=== PATIENT | male | born 1975 | race Caucasian/White ===

== ENCOUNTER 2023-05-06 10:28 | Outpatient (REF) | payer OTHER, SELFPAY ==
[2023-05-06 12:03] LABS: C Reactive Protein 0.28 mg/dL (< or = 0.50); Rheumatoid Factor < 13.0 IU/mL (<15.0)
[2023-05-06 12:09] LABS: Erythrocyte Sedimentation Rate 6 MM/HR (0-15)
[2023-05-14 13:09] LABS: ANA Titer 2 1:40 titer; Anti Nuclear Antibody Screen POSITIVE (NEGATIVE)
== END 2023-05-06 10:29 | disposition home or self-care (01) ==
LOC: HO.HHCL 10:28
PROVIDERS: Visit Provider Internal Medicine
DX: Z91.09 Other allergy status, other than to drugs and biological substances (principal)
CPT/HCPCS: 36415; 85652; 86038; 86039; 86140; 86431

== ENCOUNTER → 2024-03-26 10:45 | Outpatient (BNVA) | payer SELFPAY | PROVIDERS: PCP Internal Medicine; Visit Provider Physician Assistant | DX: Z02.79 Encounter for issue of other medical certificate (principal) ==

== ENCOUNTER 2024-07-02 08:54 | Outpatient (REF) | payer OTHER, SELFPAY ==
[2024-07-02 14:13] LABS: MANUAL DIFF FLAG NO
[2024-07-02 14:24] LABS: Appearance Urine Clear; Color Urine Yellow; Glucose Urine UA Negative (Negative); Leukocyte Esterase Urine Negative (Negative); Nitrite Urine Negative (Negative); PH 7.5 (5.0-9.0); Urine Blood Negative (Negative); Urine Ketones Negative (Negative); Urine Protein Negative (Neg-Trace)
[2024-07-02 14:27] LABS: Basophils Absolute Auto 0.1 X10*3/uL (0.0-0.2); Basophils Percent Auto 0.6 % (0-2); Eosinophils Absolute Auto 0.2 X10*3/uL (0.0-0.4); Eosinophils Percent Auto 2.2 % (0-4); Hematocrit 44.5 % (42.0-52.0); Hemoglobin 14.2 g/dl (14.0-18.0); Imm Gran Abs Auto 0.19 X10*3/uL (0.00-0.03); Imm Gran Pct Auto 1.9 % (0.0-0.4); Lymphocytes Absolute Auto 2.6 X10*3/uL (1.2-4.9); Lymphocytes Percent Auto 25.5 % (20-40); Mean Corpuscular HGB Conc 31.9 g/dl (31.0-36.0); Mean Corpuscular Hemoglobin 25.2 pg (27.0-33.0); Mean Corpuscular Volume 78.9 fL (80.0-98.0); Mean Platelet Volume 9.6 fL (9.4-12.4); Monocytes Absolute Auto 0.7 X10*3/uL (0.1-1.2); Neutrophils Absolute Auto 6.3 x10*3/uL (2.0-8.3); Neutrophils Percent Auto 62.8 % (45-73); Platelet Count 325 X10*3/uL (160-400); Red Blood Count 5.64 X10*6/uL (4.60-5.80); Red Cell Distribution Width 14.6 % (11.0-16.0); White Blood Count 10.1 X10*3/uL (4.8-10.8)
[2024-07-02 14:28] LABS: Bacteria Urine None Seen (None Seen); Hyaline Casts Urine 0-2 /LPF (0-2); RBC Urine 0-2 /HPF (0-2); Squamous Epithelial Cell Urine 0-2 /HPF (0-2); WBC Urine 0-5 /HPF (0-5)
[2024-07-02 15:22] LABS: Alanine Aminotransferase 22 U/L (0-40); Alkaline Phosphatase 72 U/L (39-117); Anion Gap 12 (12-20); Aspartate Amino Transferase 20 U/L (5-37); Bilirubin Total 0.4 mg/dL (0.0-1.0); Blood Urea Nitrogen 16 mg/dL (9-16); Calcium 9.6 mg/dL (8.4-10.2); Carbon Dioxide 29 mmol/L (22-29); Chloride 104 mmol/L (96-108); Cholesterol 187 mg/dL (<200); Estimated Glomerular Filt Rate > 60; Glucose Random 85 mg/dL (60-115); HDL Cholesterol 43 mg/dL (>40); LDL Cholesterol Calculated 112 mg/dL (<100); Potassium 3.5 mmol/L (3.3-5.1); Sodium 141 mmol/L (135-145); Total Protein 7.9 g/dL (6.5-8.0); Triglycerides 160 mg/dL (<150)
[2024-07-02 15:28] LABS: TSH reflex Free T4 1.31 uIU/mL (0.32-4.0)
== END 2024-07-02 08:55 | disposition home or self-care (01) ==
LOC: HO.CHCLDS 08:54
PROVIDERS: Visit Provider Family Medicine
DX: E66.01 Morbid (severe) obesity due to excess calories (principal); Z68.42 Body mass index [BMI] 45.0-49.9, adult
CPT/HCPCS: 36415; 80053; 80061; 81001; 84443; 85025; 87086

== ENCOUNTER 2024-10-08 09:19 | Outpatient (REF) | payer OTHER, SELFPAY ==
[2024-10-08 14:07] LABS: Appearance Urine Clear; Color Urine Yellow; Glucose Urine UA Negative (Negative); Leukocyte Esterase Urine Trace (Negative); Nitrite Urine Negative (Negative); PH 6.5 (5.0-9.0); UMIC TRIGGER UACC YES; Urine Blood Negative (Negative); Urine Ketones Negative (Negative); Urine Protein Negative (Neg-Trace)
[2024-10-08 14:12] LABS: Bacteria Urine None Seen (None Seen); Hyaline Casts Urine 0-2 /LPF (0-2); RBC Urine 0-2 /HPF (0-2); Squamous Epithelial Cell Urine 0-2 /HPF (0-2); WBC Urine 0-5 /HPF (0-5)
[2024-10-08 14:18] LABS: MANUAL DIFF FLAG NO
[2024-10-08 14:20] LABS: Basophils Absolute Auto 0.1 X10*3/uL (0.0-0.2); Basophils Percent Auto 0.6 % (0-2); Eosinophils Absolute Auto 0.2 X10*3/uL (0.0-0.4); Eosinophils Percent Auto 2.3 % (0-4); Hematocrit 43.3 % (42.0-52.0); Hemoglobin 13.9 g/dl (14.0-18.0); Imm Gran Abs Auto 0.15 X10*3/uL (0.00-0.03); Imm Gran Pct Auto 1.5 % (0.0-0.4); Lymphocytes Absolute Auto 2.3 X10*3/uL (1.2-4.9); Lymphocytes Percent Auto 23.8 % (20-40); Mean Corpuscular HGB Conc 32.1 g/dl (31.0-36.0); Mean Platelet Volume 9.7 fL (9.4-12.4); Monocytes Absolute Auto 0.6 X10*3/uL (0.1-1.2); Monocytes Percent Auto 6.3 % (2-11); Neutrophils Absolute Auto 6.4 x10*3/uL (2.0-8.3); Neutrophils Percent Auto 65.5 % (45-73); Platelet Count 316 X10*3/uL (160-400); Red Blood Count 5.55 X10*6/uL (4.60-5.80); Red Cell Distribution Width 14.2 % (11.0-16.0); White Blood Count 9.7 X10*3/uL (4.8-10.8)
[2024-10-08 14:40] LABS: Albumin Level 4.1 g/dL (3.5-5.0); Anion Gap 13 (12-20); Aspartate Amino Transferase 35 U/L (5-37); Beta-Hydroxybutyrate 0.08 mmol/L (0.02-0.27); Bilirubin Total 0.4 mg/dL (0.0-1.0); Blood Urea Nitrogen 17 mg/dL (9-16); Calcium 9.5 mg/dL (8.4-10.2); Carbon Dioxide 27 mmol/L (22-29); Chloride 103 mmol/L (96-108); Estimated Glomerular Filt Rate > 60; Glucose Random 103 mg/dL (60-115); Potassium 3.5 mmol/L (3.3-5.1); Sodium 139 mmol/L (135-145); Total Protein 7.8 g/dL (6.5-8.0)
[2024-10-08 15:01] LABS: Alanine Aminotransferase 34 U/L (0-40); Alkaline Phosphatase 80 U/L (39-117)
[2024-10-08 15:03] LABS: Insulin 39 uU/mL (2-29)
[2024-10-09 21:39] LABS: C Peptide 5.44 ng/mL (0.80-3.85)
[2024-10-16 01:53] LABS: Proinsulin 48.3 pmol/L (< OR = 18.8)
== END 2024-10-08 09:20 | disposition home or self-care (01) ==
LOC: HO.CHCLDS 09:19
PROVIDERS: Visit Provider Family Medicine
DX: R73.09 Other abnormal glucose (principal); R30.0 Dysuria
CPT/HCPCS: 36415; 80053; 81001; 82010; 83525; 84206; 84681; 85025

== ENCOUNTER 2025-05-12 11:39 | Outpatient (REF) | payer OTHER, SELFPAY ==
--- NOTE | ~2025-05-12 | XR_ITS ---
EXAMINATION: XR SHOULDER, RIGHT CLINICAL INFORMATION: 49 yo Male with chronic R shoulder pain COMPARISON: None available. TECHNIQUE: AP external rotation, Grashey, scapular Y, and axillary views of the right shoulder. FINDINGS: AC joint is intact. There is no shoulder dislocation. There are no degenerative changes. No fractures are visualized. XR/XR shoulder RT min 2V IMPRESSION: Unremarkable right shoulder. Electronically signed by: Holden Ochoa MD 05/12/2025 12:25 PM EDT
--- OUTSIDE RECORDS SUMMARY | 2025-05-12 10:45 | XMS_ITS | Encounter Summary ---
Author Organization [employer] [facility] Address [address] [place] [address] [address], [place] [address] Care Team Providers Care Absorption Plant Operator Name Role Phone Verna Sharpe MD Primary Care Provider [phone] Reason for Referral * Consultation (Routine) - Pending Review Specialty Diagnoses / Procedures Referred By Contac t Referred To Contact Gastroenterology Diagnoses Bloating Constipation, unspecified constipation type Verna Sharpe MD [address] [place] [address] Phone: tel: fax: Referral ID Status Reason Start Date Expiration Date Visits Requested Visits Authorized [id number] Pending Review Specialty Services Required 05/12/2025 05/12/2026 1 1 * Consultation (Routine) - Pending Review Specialty Diagnoses / Procedures Referred By Contac t Referred To Contact Pain Medicine Diagnoses Lumbar radiculopathy Verna Sharpe MD [address] [place] [address] Phone: tel: fax: Referral ID Status Reason Start Date Expiration Date Visits Requested Visits Authorized [id number] Pending Review Specialty Services Required 05/12/2025 05/12/2026 1 1 Reason for Visit * Reason Comments Bloated Encounter Details Date Type Department Care Team (Latest Contact Info) Description 05/12/2025 10:45 AM EDT Office Visit [facility] MED [facility] PEDS [address] [place] [address] Verna Sharpe MD [address] [place] [address] Lumbar radiculopathy (Primary Dx); Type 2 diabetes mellitus without complication, without long-term current use of insulin ([facility]); Class 3 severe obesity due to excess calories with serious comorbidity and body mass index (BMI) of 45.0 to 49.9 in adult; Obstructive sleep apnea syndrome; Bloating; Constipation, unspecified constipation type; Chronic right shoulder pain Social History Tobacco Use Types Packs/Day Years Used Date Smoking Tobacco: Never Passive Smoke Exposure: Never Smokeless Tobacco: Never Alcohol Use Standard Drinks/Week Comments Never 0 (1 standard drink = 0.6 oz pur e alcohol) Depression Answer Date Recorded Patient Health Questionnaire-9 Score 7 10/07/2024 Patient Health Questionnaire-9 Score 7 10/07/2024 Last PHQ-9: Questionnaire Data Not on file 1 12/08/2023 Housing Stability Answer Date Recorded What is your housing situation today? I have peter jones 04/15/[address] you li ve. Do you have problems with any of the following? None of the above 04/15/2025 Food Insecurity Answer Date Recorded Within the past 12 months, y ou worried that your food would run out before you got money to buy more: Never True 04/15/2025 Within the past 12 months,th e food you bought just didn't last and you didn't have enough money to get more: Never True Transportation Answer Date Recorded In the past 12 months, has l ack of transportation kept you from medical appts, meetings, work or from getting things needed for daily living? No 04/15/2025 Utilities Answer Date Recorded In the past 12 months, has t he electric, gas, oil or water company threatened to shut off services in your home? No 04/15/2025 Depression Answer Date Recorded Patient Health Questionnaire-2 Score 2 10/07/2024 Internet Access Answer Date Recorded Internet Access Q1 Yes 04/15/2025 Internet Access Q2 Not on file 04/15/2025 Sex and Gender Information Value Date Recorded Sex Assigned at Male 08/26/2022 10:35 AM EDT Legal Sex Male 10:35 AM EDT Gender Identity Male 08/26/2022 10:35 AM EDT Sexual Orientation Straight 08/26/2022 10 :35 AM EDT documented as of this encounter Last Filed Vital Signs Vital Sign Reading Time Taken Comments Blood Pressure 148/98 05/12/2025 10:46 AM EDT Pulse 86 05/12/2025 10:46 AM EDT Temperature 36.9 C (98.4 F) 05/12/2025 10:46 AM EDT Respiratory Rate 20 05/12/2025 10:46 AM EDT Oxygen Saturation 98% 05/12/2025 10:46 AM EDT Inhaled Oxygen Concentration - - Weight 152 kg (334 lb 9.6 oz) 05/12/2025 10:46 A M EDT Height 177.8 cm (5' 10 ) 05/12/2025 10:46 AM EDT Body Mass Index 48.01 05/12/2025 10:46 AM EDT documented in this encounter Plan of Treatment Upcoming Encounters Date Type Department Care Team (Late st Contact Info) Description 05/27/2025 9:45 AM EDT Office Visit [facility] OPTOMETRY [address] [place] [address] Brandy Blair, OD [address] [place] [address] 07/13/2025 9:00 AM EDT Clinical Support [facility] [address] [place] [address] Lucille Rutledge, RN [address] [place] [address] Scheduled Referrals Name Type Priority Associated Diagnoses Orde r Schedule Referral to Pain Medicine Outpatient Referral Routine Lumbar radiculopathy Expected: 05/12/2025 (Approximate), Expires: 05/12/2026 Referral to Gastroenterology Outpatient Referral Routine Bloating Constipation, unspecified constipation type Expected: 05/12/2025 (Approximate), Expires: 05/12/2026 documented as of this encounter Procedures Procedure Name Priority Date/Time Associated Diagnosis Comments XR SHOULDER 2+ VIEWS RIGHT Routine 05/12/2025 11:55 AM EDT Chronic right shoulder pain documented in this encounter Results * XR Shoulder 2+ Views Right (05/12/2025 11:55 AM EDT) Anatomical Region Laterality Modality Upper Extremities, Shoulder Right Radi ographic Imaging 05/12/2025 11:5 5 AM EDT Narrative 05/12/2025 12:28 PM EDT [address] [address] XRay Report Signed Patient: Randall Becerra MR#: [id number] : 1975 Acct:[id number] Age/Sex: 49 / M ADM Date: 05/12/25 Loc: HO.XRAY Attending Dr: Verna Sharpe MD Ordering Physician: Verna Sharpe MD Date of Service: 05/12/25 Procedure(s): XR shoulder RT min 2V Accession Number(s): [id number] cc: Verna Sharpe MD EXAMINATION: XR SHOULDER, RIGHT CLINICAL INFORMATION: 49 yo Male with chronic R shoulder pain COMPARISON: None available. TECHNIQUE: AP external rotation, Grashey, scapular Y, and axillary views of the right shoulder. FINDINGS: AC joint is intact. There is no shoulder dislocation. There are no degenerative changes. No fractures are visualized. XR/XR shoulder RT min 2V IMPRESSION: Unremarkable right shoulder. Electronically signed by: Holden Ochoa MD 05/12/2025 12:25 PM EDT Dictated By: Holden Ochoa MD Signed By: <Electronically signed by Holden Ochoa MD in OV> 05/12/25 1225 DD/ 1155 TD/TT: 05/12/[address] Passenger Firer: Procedure Note Donotuseinterpreter, Image - 05/12/[address] [address] XRay Report Signed Patient: Kb BecerraR#: [id number] : 1975Acct:[id number] Age/Sex: 49 / MADM Date: 05/12/25 Loc: HO.XRAY Attending Dr: Verna Sharpe MD Ordering Physician: Verna Sharpe MD Date of Service: 05/12/25 Procedure(s): XR shoulder RT min 2V Accession Number(s): [id number] cc: Verna Sharpe MD EXAMINATION: XR SHOULDER, RIGHT CLINICAL INFORMATION: 49 yo Male with chronic R shoulder pain COMPARISON: None available. TECHNIQUE: AP external rotation, Grashey, scapular Y, and axillary views of the right shoulder. FINDINGS: AC joint is intact. There is no shoulder dislocation. There are no degenerative changes. No fractures are visualized. XR/XR shoulder RT min 2V IMPRESSION: Unremarkable right shoulder. Electronically signed by: Holden Ochoa MD 05/12/2025 12:25 PM EDT Dictated By: Holden Ochoa MD Signed By: <Electronically signed by Holden Ochoa MD in OV> 05/12/25 1225 DD/ 1155 TD/TT: 05/12/[address] Passenger Firer: Verna Sharpe MD IMG XR PROCEDURES Edited Resu lt - Final documented in this encounter Visit Diagnoses Diagnosis Lumbar radiculopathy- Primary Thoracic or lumbosacral neuritis or radiculitis, unspecified Type 2 diabetes mellitus without complication, without long-term current use of insulin ([facility]) Class 3 severe obesity due to excess calories with serious comorbidity and body mass index (BMI) of 45.0 to 49.9 in adult Obstructive sleep apnea syndrome Obstructive sleep apnea (adult) (pediatric) Bloating Flatulence, eructation, and gas pain Constipation, unspecified constipation type Chronic right shoulder pain Pain in joint, shoulder region documented in this encounter Additional Health Concerns Assessment Noted Time PHQ-9 Depression Total Score: 7 10/07/20 24 1:49 PM EST documented as of this encounter Care Teams Absorption Plant Operator Relationship Specialty Start Date End Date Verna Sharpe MD [address] [place] [id number] PCP - General Family Medicine 11/05/21 documented as of this encounter
--- OUTSIDE RECORDS SUMMARY | 2025-05-12 12:31 | XMS_ITS | Clinical Summary ---
Author Organization [address] [place] [address] Address [address] [place] [address] Phone Care Team Providers Care Car Repairman Name Role Phone Verna Sharpe MD Primary Care Provider [phone] Allergies No known active allergies Medications fluticasone propionate (FLONASE) 50 mcg/actuation nasal spray 2 Sprays by Each Nare route daily. Active fluticasone furoate-vilante roL (BREO ELLIPTA) 100-25 mcg/dose inhaler Inhale into the lungs. Active simvastatin (ZOCOR) 20 mg tablet Take 20 mg by mouth at bedtime. Active BISACODYL MISC by Combination route. Active GABAPENTIN ORAL Take by mouth. Active RANITIDINE HCL ORAL Take 300 mg by mouth at bedtime. Active cyclobenzaprine HCl (CYCLOBENZAPRIN E ORAL) Take by mouth. Activ e CHLORTHALIDONE ORAL Take by mouth. Activ e IBUPROFEN ORAL Take by mouth. Active ENALAPRIL MALEATE ORAL Take by mouth. Ac tive ketoconazole (NIZORAL) 2 % cream Apply topically 1 (one) time each day. 60 g 2 5 Active Active Problems Problem Noted Date Diagnosed Date Class 3 severe obesity due t o excess calories with serious comorbidity and body mass index (BMI) of 45.0 to 49.9 in adult ([facility] V24, [facility] V28) Surgical History Surgery Date Site/Laterality Comments HAND SURGERY PROCEDURE: CA UNLISTED PROCEDURE HANDS/FINGERS Medical History Medical History Date Comments Hypertension DX:Hypertension Obesity DX:Obesity Obstructive sleep apnea DX:Obstr uctive sleep apnea Diabetes (CMS/H[facility] V24, [facility] V28) DX:Diabetes (HCC) Back pain DX:Back pain Asthma DX:Asthma Family History Medical History Relation Name Comments Diabetes Father Other: cancer Father Diabetes Mother Hypertension Mother Relation Name Status Comments Father Mother Social History Tobacco Use Types Packs/Day Years Used Date Smoking Tobacco: Never Smokeless Tobacco: Never Alcohol Use Standard Drinks/Week Comments No 0 (1 standard drink = 0.6 oz pur e alcohol) Sex and Gender Information Value Date Recorded Sex Assigned at Not on file Legal Sex Male 3:31 PM EST Gender Identity Not on file Sexual Orientation Not on file Obstetrics History Last Filed Vital Signs Vital Sign Reading Time Taken Comments Blood Pressure - - Pulse - - Temperature - - Respiratory Rate - - Oxygen Saturation - - Inhaled Oxygen Concentration - - Weight 147 kg (323 lb) 02/09/2025 10:24 AM EDT Height 180.3 cm (5' 11 ) 02/09/2025 10:24 AM EDT Body Mass Index 45.05 02/09/2025 10:24 AM EDT Plan of Treatment Health Maintenance Due Date Last Done Comments Hepatitis B Vaccines (1 of 3 - 19+ 3-dose series) 1994 Pneumococcal Vaccine: Pediatrics (0 to 5 Years) and At-Risk Patients (6 to 49 Years) (1 of 2 - PCV) 1994 Colorectal Cancer Screening: Colonoscopy 09/25/2022 Hepatitis C Screening 09/25/2022 Medicare Annual Wellness Visit 09/25/2022 Social Influencers of Health Screening 09/25/2022 COVID-19 Vaccine (1 - 2023-2 5 season) 2024 Depression Screening 10/27/2024 Hypertension/CHF/CAD Annual BMP Blood Test 02/09/2025 Influenza Vaccine (#1) 2025 , 08/12/2019 Cholesterol Screening (Lipid Panel) 07/02/2029 07/02/2024 DTaP,Tdap,and Td Vaccines (2 - Td or Tdap) 12/04/2031 12/04/2021 HIV Screening Completed 11/20/2021 HIB Vaccines Aged Out No longer eligi ble based on patient's age to complete this topic HPV Vaccines Aged Out No longer eligi ble based on patient's age to complete this topic Hepatitis A Vaccines Aged Out No long er eligible based on patient's age to complete this topic IPV Vaccines Aged Out No longer eligi ble based on patient's age to complete this topic MMR Vaccines Aged Out No longer eligi ble based on patient's age to complete this topic Meningococcal ACWY Vaccine Aged Out N o longer eligible based on patient's age to complete this topic Meningococcal B Vaccine Aged Out No l onger eligible based on patient's age to complete this topic RSV Immunization Patients Under 20 months Aged Out No longer eligible b ased on patient's age to complete this topic Varicella Vaccines Aged Out No longer eligible based on patient's age to complete this topic Insurance MEDICAID - [place] [employer] MEDICARE [employer] MEDICARE Care Teams Car Repairman Relationship Specialty Start Date End Date Verna Sharpe MD [address] [place] [address] PCP - General Family Medicine 12/02/24
== END 2025-05-12 11:40 | disposition home or self-care (01) ==
LOC: HO.XRAY 11:39
PROVIDERS: PCP Family Medicine; Visit Provider Family Medicine
DX: M25.511 Pain in right shoulder (principal); G89.29 Other chronic pain
CPT/HCPCS: 73030

== ENCOUNTER → 2025-05-12 11:44 | Outpatient (BNV) | payer OTHER, SELFPAY | PROVIDERS: PCP Family Medicine; Visit Provider Radiology Diagnostic Radiology | DX: M25.511 Pain in right shoulder (principal) | CPT/HCPCS: 73030 ==

== ENCOUNTER 2025-06-30 13:26 | Outpatient (AMB) | payer OTHER, SELFPAY ==
[2025-06-30 13:37] VITALS: BP 164/101; PULSE 74; RESP 20; O2SAT 97; BMI 48.7
--- NOTE | 2025-06-30 13:37 | A.OFFVIS_ITS ---
Vital Signs 06/30/25 13:37 Height 5 ft 11 in Weight 349 lb BMI 48.7 BP 164/101 H Blood Pressure Location Lt brachial Position Sitting Respiration 20 Pulse 74 Pulse Source Pulse Oximeter Pulse Oximetry (%) 97 Oxygen Delivery Method Room Air Intake Visit Reasons: Lumbar Radiculaopathy Superintendent Meters Name: [id number] Allergies No Known Allergies Allergy (Verified 06/30/25 13:40) HPI Comments Details: Randall is very pleasant 49 years old gentleman who presents in my office with complains on pain in the lower back with radiation to the left lower extremity. He reports severe pain with prolonged sitting pain with flexing forward, he reports pain with prolonged walking, he reports severe discomfort in the back with attempts to lift objects from the ground. He reports that this pain started in 1996 when he had the heavy object fell on him, he had physical therapy at that time and he received multiple injections nature of which he does not know. He reported that initially those injections were helpful, however later on his injections became ineffective. Two years ago he was referred to neurosurgeon and he had the procedure done on his lumbar spine, judging by the scar he showed me that was foraminal diskectomy. He denies any hardware in his back. He reports that before surgery he had pain is his scrotum , this pain and cramps in the back of the left lower extremity became better after surgery. However axial back pain remain the same. He tried multiple medications to treat his pain. He is taking tramadol with no help he reports that ibuprofen did not help he tried Flexeril with no help and he tried very small doses of baclofen he reports no side effects but no help. After surgery he had physical therapy which I gave him minimal and short-lived pain improvement. He completed the full course of physical therapy and he reported that his pain became worse after the full course. He tried acupuncture which was not effective for his pain control. He did not have an MRI after surgery performed in the [facility]. His past medical history significant for asthma and hypertension, he is also prediabetic. Surgical history significant as above no other surgical procedures, he denies smoking cigarettes drinking alcohol he denies recreational drugs. Review of Systems Const All systems reviewed & are unremarkable except as noted in HPI and below ENT Reports Normal hearing present Neuro Reports Normal hearing present, Denies Abnormal speech present, Denies confusion and Denies Sensory deficit (Neuro) Psych Denies confusion Physical Exam Vital Signs: Last Vital Signs Pulse 74 06/30/25 13:37 Resp 20 06/30/25 13:37 BP 164/101 H 06/30/25 13:37 Pulse Ox 97 06/30/25 13:37 Oxygen Delivery Method Room Air 06/30/25 13:37 BMI result Body Mass Index 48.7 Const General: no acute distress; No confusion Nutritional Appearance: obese morbidly obese Orientation/consciousness: patient oriented x3 and No confusion Eyes General: appearance normal, both eyes and all related structures Pupils: Equal, round and reactive pupils present EOM: EOMs intact bilaterally Neck Neck: Yes full ROM Chest Chest palpation & inspection: normal inspection of the chest Resp Effort & Inspection: normal respiratory effort, able to speak in complete sentences, normal respiratory pattern, no audible wheezes and no cough Cardio Jugular venous distension: no JVD GI Inspection: Yes normal to inspection Back/Spine/Pelvis Other: It is very difficult to perform physical exam on this patient because of the ample body mass, any provocation maneuvers attempted at this patient cause severe cramps in the posterior surfaces of the left lower extremity. He also unable to stand on bilateral tiptoes because of the severe cramps in bilateral lower extremities. I have managed to perform SLR and it is positive on the left and negative on the right. Lasegue test is negative on the right and equivocal on the left. Neuro General: patient oriented x3, gait normal and No confusion Cranial nerves: Yes CN's II-XII intact bilaterally, Yes Equal, round and reactive pupils present, Yes Normal hearing present and Yes Ability to bilaterally elevate shoulders present Speech: No Abnormal speech present Gait exam (Neuro): Normal gait present Motor exam (neuro): 5/5 motor strength present throughout Sensory Exam: No Sensory deficit (Neuro) Extrem General: No pedal edema Psych Speech and movement: Normal speech and movement present Affect: normal affect Attitude: cooperative Thought process: Normal thought process present Thought content: Normal thought content present Insight: Good insight present (Psych) Judgement: Good judgement present (Psych) Assessment & Plan Assessment & Plan (1) Vertebrogenic low back pain: Code(s): M54.51 - Vertebrogenic low back pain Category: Medical (2) Radiculopathy, lumbar region: Code(s): M54.16 - Radiculopathy, lumbar region Category: Medical (3) Spondylosis of lumbar joint: Code(s): M47.816 - Spondylosis without myelopathy or radiculopathy, lumbar region Category: Medical (4) Disc degeneration, lumbar: Code(s): M51.369 - Other intervertebral disc degeneration, lumbar region without mention of lumbar back pain or lower extremity pain Category: Medical (5) Chronic pain syndrome: Code(s): G89.4 - Chronic pain syndrome Category: Medical (6) Postlaminectomy syndrome of lumbar region: Code(s): M96.1 - Postlaminectomy syndrome, not elsewhere classified Category: Medical Plan I have to see the fresh MRI of the lumbar spine because the previous MRI was done long time ago before he has a surgery on his back. I would need to confirm my suspicion that he has vertebra genic pain syndrome. Also disc degeneration and spondylosis need to be confirmed. I will schedule him for the MRI in the [facility]. I also prescribe him baclofen 20 mg b.i.d.. If this will help his cramps and pain and there will be no side effects I will continue this medication with possible escalation. I will see him in 1 month. Orders: Orders MR lumbar spine wo con Today G89.4 - Chronic pain syndrome, M47.816 - Spondylosis without myelopathy or radiculopathy, lumbar region, M51.369 - Other intervertebral disc degeneration, lumbar region without mention of lumbar back pain or lower extremity pain, M54.16 - Radiculopathy, lumbar region, M54.51 - Vertebrogenic low back pain, M96.1 - Postlaminectomy syndrome, not elsewhere classified Medications: New 2 baclofen 20 mg PO BID 60 tabs 8RF 30 days Patient Instructions: I here by testify that I spent 45 minutes in conversation with this patient as well as evaluating his prior records, evaluating prior diagnostic studies planning his care and organizing this note. educational interpreter from [employer] [id number] was very helpful today in maintaining this conversation in [place]. Coding Level of Care Code New Pt Level 4 (94947) Diagnoses Vertebrogenic low back pain M54.51 Radiculopathy, lumbar region M54.16 Spondylosis of lumbar joint M47.816 Disc degeneration, lumbar M51.369 Chronic pain syndrome G89.4 Postlaminectomy syndrome of lumbar region M96.1
--- OUTSIDE RECORDS SUMMARY | 2025-06-30 14:50 | XMS_ITS | Encounter Summary ---
Author Organization [employer] Address [address] [place] [address] [address] [place] [address] Care Team Providers Care Salt Lifter Name Role Phone Verna Sharpe MD Primary Care Provider [phone] Reason for Visit * Reason Onset Date Comments Med Refill 06/16/2025 Encounter Details Date Type Department Care Team ([facility] st Contact Info) Description 06/16/2025 Refill [facility] MED [facility] PEDS [address] [place] [address] Verna Sharpe MD [address] [place] [address] Type 2 diabetes mellitus without complication, without long-term current use of insulin ([facility]); Class 3 severe obesity due to excess calories with serious comorbidity and body mass index (BMI) of 45.0 to 49.9 in adult; Obstructive sleep apnea syndrome Social History Tobacco Use Types Packs/Day Years [...] AM EDT documented as of this encounter Plan of Treatment Upcoming Encounters Date Type Department Care Team (Late st Contact Info) Description 07/13/2025 9:00 AM EDT Clinical Support [facility] PEDS [address] [place] [address] Lucille Rutledge, RN [address] [place] [address] documented as of this encounter Visit Diagnoses Diagnosis Type 2 diabetes mellitus without complication, without long-term current use of insulin ([facility]) Class 3 severe obesity due to excess calories with serious comorbidity and body mass index (BMI) of 45.0 to 49.9 in adult Obstructive sleep apnea syndrome Obstructive sleep apnea (adult) (pediatric) documented in this encounter Additional Health Concerns Assessment Noted Time PHQ-9 Depression Total Score: 7 10/07/20 24 1:49 PM EST documented as of this encounter Care Teams Salt Lifter Relationship Specialty Start Date End Date Verna Sharpe MD [address] [place] [address] PCP - General Family Medicine 11/05/21 documented as of this encounter
--- OUTSIDE RECORDS SUMMARY | 2025-06-30 14:50 | XMS_ITS | Encounter Summary ---
Author Organization [employer] Address [address] [place] [address] 7 [place] [address] Care Team Providers Care Cabin Cleaning Supervisor Name Role Phone Verna Sharpe MD Primary Care Provider [phone] Reason for Visit * Reason Onset Date Comments Med Refill 06/11/2025 Encounter Details Date Type Department Care Team ([facility] st Contact Info) Description 06/11/2025 Refill [facility] CHC MED & PEDS [address] [place] [address] Verna Sharpe MD 505 [place] [address] Type 2 diabetes mellitus without complication, without long-term current use of insulin ([facility]); Class 3 severe obesity due to [...] Description 07/13/2025 9:00 AM EDT Clinical Support [facility] CHC MED & PEDS [address] [place] [address] Lucille Rutledge, RN 505 [place] [address] documented as of this encounter Visit Diagnoses Diagnosis Type 2 diabetes mellitus without complication, without long-term current use of insulin ([facility]) Class 3 severe obesity due to excess calories with serious comorbidity and body mass index (BMI) of 45.0 to 49.9 in adult Obstructive sleep apnea syndrome Obstructive sleep apnea (adult) (pediatric) documented in this encounter Additional Health Concerns Assessment Noted Time PHQ-9 Depression Total Score: 7 10/07/20 24 1:49 PM EST documented as of this encounter Care Teams Cabin Cleaning Supervisor Relationship Specialty Start Date End Date Verna Sharpe MD [address] [place] [address] PCP - General Family Medicine 11/05/21 documented as of this encounter
--- OUTSIDE RECORDS SUMMARY | 2025-06-30 14:50 | XMS_ITS | Encounter Summary ---
Author Organization [employer] Address [address] [place] [address] 7 [place] [address] Care Team Providers Care Energy Projects Lead Name Role Phone Verna Sharpe MD Primary Care Provider [phone] Reason for Visit * Reason Onset Date Comments Med Refill 06/08/2025 Encounter Details Date Type Department Care Team ([facility] st Contact Info) Description 06/08/2025 Refill [facility] CHC MED & PEDS 505 [place] [address] Verna Sharpe MD 505 [place] [address] Type 2 diabetes mellitus without complication, without long-term current use of insulin ([facility]); Class 3 severe obesity due to [...] Description 07/13/2025 9:00 AM EDT Clinical Support [facility] CHC MED & PEDS [address] [place] [address] Lucille Rutledge, RN 505 [place] [address] documented as of this encounter Visit Diagnoses Diagnosis Type 2 diabetes mellitus without complication, without long-term current use of insulin ([facility]) Class 3 severe obesity due to excess calories with serious comorbidity and body mass index (BMI) of 45.0 to 49.9 in adult Obstructive sleep apnea syndrome Obstructive sleep apnea (adult) (pediatric) documented in this encounter Additional Health Concerns Assessment Noted Time PHQ-9 Depression Total Score: 7 10/07/20 24 1:49 PM EST documented as of this encounter Care Teams Energy Projects Lead Relationship Specialty Start Date End Date Verna Sharpe MD [address] [place] [address] PCP - General Family Medicine 11/05/21 documented as of this encounter
--- OUTSIDE RECORDS SUMMARY | 2025-06-30 14:50 | XMS_ITS | Encounter Summary ---
Author Organization [employer] Address [address] [place] [address] 7 [place] [address] Care Team Providers Care Tobacco Packer Name Role Phone Verna Sharpe MD Primary Care Provider [phone] Reason for Visit * Reason Onset Date Comments Med Refill 06/05/2025 Encounter Details Date Type Department Care Team ([facility] st Contact Info) Description 06/05/2025 Refill [facility] CHC MED & PEDS [address] [place] [address] Verna Sharpe MD 505 [place] [address] Type 2 diabetes mellitus without complication, without long-term current use of insulin ([facility]); Class 3 severe obesity due to [...] Description 07/13/2025 9:00 AM EDT Clinical Support [facility] CHC MED & PEDS [address] [place] [address] Lucille Rutledge, RN 505 [place] [address] documented as of this encounter Visit Diagnoses Diagnosis Type 2 diabetes mellitus without complication, without long-term current use of insulin ([facility]) Class 3 severe obesity due to excess calories with serious comorbidity and body mass index (BMI) of 45.0 to 49.9 in adult Obstructive sleep apnea syndrome Obstructive sleep apnea (adult) (pediatric) documented in this encounter Additional Health Concerns Assessment Noted Time PHQ-9 Depression Total Score: 7 10/07/20 24 1:49 PM EST documented as of this encounter Care Teams Tobacco Packer Relationship Specialty Start Date End Date Verna Sharpe MD [address] [place] [address] PCP - General Family Medicine 11/05/21 documented as of this encounter
--- OUTSIDE RECORDS SUMMARY | 2025-06-30 14:50 | XMS_ITS | Encounter Summary ---
Author Organization [employer] Address [address] [place] [address] 7 [place] [address] Care Team Providers Care Manager Marketing Sales Name Role Phone Verna Sharpe MD Primary Care Provider [phone] Reason for Visit * Reason Onset Date Comments Med Refill 03/02/2025 Encounter Details Date Type Department Care Team ([facility] st Contact Info) Description 03/02/2025 Refill [facility] CHC MED & PEDS 505 [place] [address] Verna Sharpe MD 505 [place] [address] Lumbar radiculopathy Social History Tobacco Use Types Packs/Day Years [...] housing situation today? I have peter jones 12/23/[address] you li ve. Do you have problems with any of the following? None of the above 12/23/2023 Food Insecurity Answer Date Recorded Within the past 12 months, y ou worried that your food would run out before you got money to buy more: Never True 12/23/2023 Within the past 12 months,th e food you bought just didn't last and you didn't have enough money to get more: Never True 02/ Transportation Answer Date Recorded In the past 12 months, has l ack of transportation kept you from medical appts, meetings, work or from getting things needed for daily living? No 12/23/2023 Utilities Answer Date Recorded In the past 12 months, has t he electric, gas, oil or water company threatened to shut off services in your home? No 12/23/2023 Depression Answer Date Recorded Patient Health Questionnaire-2 Score 2 10/07/2024 Sex and Gender Information Value Date Recorded Sex Assigned at Male 08/26/2022 10:35 AM EDT Legal Sex Male 10:35 AM EDT Gender Identity Male 08/26/2022 10:35 AM EDT Sexual Orientation Straight 08/26/2022 10 :35 AM EDT documented as of this encounter Plan of Treatment Upcoming Encounters Date Type Department Care Team (Late st Contact Info) Description 07/13/2025 9:00 AM EDT Clinical Support [facility] MED & PEDS 505 [place] [address] Lucille Rutledge RN 505 [place] [address] documented as of this encounter Visit Diagnoses Diagnosis Lumbar radiculopathy Thoracic or lumbosacral neuritis or radiculitis, unspecified documented in this encounter Additional Health Concerns Assessment Noted Time PHQ-9 Depression Total Score: 7 10/07/20 24 1:49 PM EST documented as of this encounter Care Teams Manager Marketing Sales Relationship Specialty Start Date End Date Verna Sharpe MD [address] [place] [address] PCP - General Family Medicine 11/05/21 documented as of this encounter
--- OUTSIDE RECORDS SUMMARY | 2025-06-30 14:50 | XMS_ITS | Encounter Summary ---
Author Organization [employer] Address [address] [facility] 7t [place] [address] Care Team Providers Care Election Assistant Name Role Phone Verna Sharpe MD Primary Care Provider [phone] Reason for Visit * Reason Comments Med Refill Encounter Details Date Type Department Care Team ([facility] Contact Info) Description 04/28/2025 Refill [facility] CHC MED & PEDS 505 [place], [place] [phone] Verna Sharpe MD 505 [place] [address] Hypertension, unspecified type Social History Tobacco Use Types Packs/Day Years [...] Description 07/13/2025 9:00 AM EDT Clinical Support [facility] CHC MED & PEDS 505 [place] [address] Lucille Rutledge, TOSIN 505 [place] [address] documented as of this encounter Visit Diagnoses Diagnosis Hypertension, unspecified type documented in this encounter Additional Health Concerns Assessment Noted Time PHQ-9 Depression Total Score: 7 10/07/20 24 1:49 PM EST documented as of this encounter Care Teams Election Assistant Relationship Specialty Start Date End Date Verna Sharpe MD 230 [place] [address] PCP - General Family Medicine 11/05/21 documented as of this encounter
--- OUTSIDE RECORDS SUMMARY | 2025-06-30 14:50 | XMS_ITS | Encounter Summary ---
Author Organization [employer] Address [address] [place] [address] 7 [place] [address] Care Team Providers Care Manager Product Name Role Phone Verna Sharpe MD Primary Care Provider [phone] Reason for Visit * Reason Onset Date Comments Med Change Request Prior Authorization 05/04/2025 Encounter Details Date Type Department Care Team ([facility] st Contact Info) Description 05/04/2025 Refill [facility] CHC MED & PEDS 505 [place] [address] Johnna Mclean MD 505 [place] [address] Type 2 diabetes mellitus without complication, without long-term current use of insulin ([facility]); Class 3 severe obesity due [...] AM EDT documented as of this encounter Miscellaneous Notes * Telephone Encounter - Abby Weiss - 05/06/2025 12:43 PM EDT PA for Zepbound initiated in [employer]. Pending decision. Thayer: [email or web address] If patient calls to check status on above, please advise them to contact Pharmacy . documented in this encounter Plan of Treatment Upcoming Encounters Date Type Department Care Team ([facility] st Contact Info) Description 07/13/2025 9:00 AM EDT Clinical Support [facility] MED & PEDS 505 [place] [address] Lucille Rutledge, RN 505 [place] [address] documented as of this encounter Visit Diagnoses Diagnosis Type 2 diabetes mellitus without complication, without long-term current use of insulin ([facility]) Class 3 severe obesity due to excess calories with serious comorbidity and body mass index (BMI) of 45.0 to 49.9 in adult Obstructive sleep apnea syndrome Obstructive sleep apnea (adult) (pediatric) documented in this encounter Additional Health Concerns Assessment Noted Time PHQ-9 Depression Total Score: 7 10/07/20 24 1:49 PM EST documented as of this encounter Care Teams Manager Product Relationship Specialty Start Date End Date eVrna Sharpe MD [address] [place] [address] PCP - General Family Medicine 11/05/21 documented as of this encounter
--- OUTSIDE RECORDS SUMMARY | 2025-06-30 14:50 | XMS_ITS | Encounter Summary ---
Author Organization [employer] Address [address] [place] [address] 7 [place] [address] Care Team Providers Care Offshoring Manager Name Role Phone Verna Sharpe MD Primary Care Provider [phone] Reason for Visit * Reason Onset Date Comments Med Refill 06/29/2025 Encounter Details Date Type Department Care Team ([facility] st Contact Info) Description 06/29/2025 Refill [facility] CHC MED & PEDS [address] [place] [address] Verna Sharpe MD 505 [place] [address] Lumbar radiculopathy Social History Tobacco Use Types [...] enough money to get more: Never True 06/ Transportation Answer Date Recorded In the past [...] Description 07/13/2025 9:00 AM EDT Clinical Support [facility] MED & PEDS [address] [place] [address] Lucille Rutledge, RN 505 [place] [address] documented as of this encounter Visit Diagnoses Diagnosis Lumbar radiculopathy Thoracic or lumbosacral neuritis or radiculitis, unspecified documented in this encounter Additional Health Concerns Assessment Noted Time PHQ-9 Depression Total Score: 7 10/07/20 24 1:49 PM EST documented as of this encounter Care Teams Offshoring Manager Relationship Specialty Start Date End Date Verna Sharpe MD [address] [place] [address] PCP - General Family Medicine 11/05/21 documented as of this encounter
--- OUTSIDE RECORDS SUMMARY | 2025-06-30 14:50 | XMS_ITS | Encounter Summary ---
Author Organization [employer] Address [address] [place] [address] 7 [place] [address] Care Team Providers Care Oil And Gas Well Treatment Operator Name Role Phone Verna Sharpe MD Primary Care Provider [phone] Reason for Visit * Reason Onset Date Comments Med Refill 06/29/2025 Encounter Details Date Type Department Care Team ([facility] st Contact Info) Description 06/29/2025 Refill [facility] CHC MED & PEDS [address] [place] [address] Jim Arriaga MD 505 [place] [address] Cervical radiculopathy Social History Tobacco Use Types Packs/Day [...] is your housing situation today? I have petre jones 04/15/[address] you [...] Description 07/13/2025 9:00 AM EDT Clinical Support [facility] MED & PEDS 505 [place] [address] Lucille Rutledge, RN 505 [place] [address] documented as of this encounter Visit Diagnoses Diagnosis Cervical radiculopathy Brachial neuritis or radiculitis nos documented in this encounter Additional Health Concerns Assessment Noted Time PHQ-9 Depression Total Score: 7 10/07/20 24 1:49 PM EST documented as of this encounter Care Teams Oil And Gas Well Treatment Operator Relationship Specialty Start Date End Date Verna Sharpe MD [address] [place] [address] PCP - General Family Medicine 11/05/21 documented as of this encounter
--- OUTSIDE RECORDS SUMMARY | 2025-06-30 14:50 | XMS_ITS | Encounter Summary ---
Author Organization [employer] Address [address] [place] [address] 7 [place] [address] Care Team Providers Care Enterprise Services Manager Name Role Phone Verna Sharpe MD Primary Care Provider [phone] Reason for Visit * Reason Onset Date Comments Med Refill 06/29/2025 Encounter Details Date Type Department Care Team ([facility] st Contact Info) Description 06/29/2025 Refill [facility] CHC MED & PEDS [address] [place] [address] Verna Sharpe MD [address] [place] [address] Lumbar radiculopathy Social History Tobacco Use Types [...] 9:00 AM EDT Clinical Support [facility] MED & PEDS 505 [place] [address] Lucille Rutledge, RN 505 [place] [address] documented as of this encounter Visit Diagnoses Diagnosis Lumbar radiculopathy Thoracic or lumbosacral neuritis or radiculitis, unspecified documented in this encounter Additional Health Concerns Assessment Noted Time PHQ-9 Depression Total Score: 7 10/07/20 24 1:49 PM EST documented as of this encounter Care Teams Enterprise Services Manager Relationship Specialty Start Date End Date Verna Sharpe MD [address] [place] [address] PCP - General Family Medicine 11/05/21 documented as of this encounter
--- OUTSIDE RECORDS SUMMARY | 2025-06-30 14:50 | XMS_ITS | Encounter Summary ---
Author Organization [employer] Address [address] [place] [address] 7 [place] [address] Care Team Providers Care Die Sinker Apprentice Name Role Phone Venra Sharpe MD Primary Care Provider [phone] Reason for Visit * Reason Onset Date Comments Med Refill 05/05/2025 Encounter Details Date Type Department Care Team ([facility] Contact Info) Description 05/05/2025 Telephone [facility] CHC MED & PEDS 505 [place] [address] Verna Sharpe MD 505 [place] [address] Med Refill Social History Tobacco Use Types Packs/Day Years [...] encounter Miscellaneous Notes * Telephone Encounter - Susanne Perez - 05/17/2025 2:25 PM EDT Darryl afternoon Dr. Sharpe, please sign chart note from 05/12 in order to proceed with referral. Thank you. documented in this encounter Plan of Treatment Upcoming Encounters Date Type Department Care Team (Late st Contact Info) Description 07/13/2025 9:00 AM EDT Clinical Support [facility] MED & PEDS 505 [place] [address] Lucille Rutledge, RN 505 [place] [address] documented as of this encounter Visit Diagnoses Diagnosis Lumbar radiculopathy Thoracic or lumbosacral neuritis or radiculitis, unspecified documented in this encounter Additional Health Concerns Assessment Noted Time PHQ-9 Depression Total Score: 7 10/07/20 24 1:49 PM EST documented as of this encounter Care Teams Die Sinker Apprentice Relationship Specialty Start Date End Date Verna Sharpe MD [address] [place] [address] PCP - General Family Medicine 11/05/21 documented as of this encounter
--- OUTSIDE RECORDS SUMMARY | 2025-06-30 14:50 | XMS_ITS | Encounter Summary ---
Author Organization [employer] Address [address] [facility] 7t [place] [address] Care Team Providers Care Tractor Operator Laser Leveling Name Role Phone Verna Sharpe MD Primary Care Provider [phone] Reason for Visit * Reason Comments Med Refill Encounter Details Date Type Department Care Team ([facility] Contact Info) Description 05/03/2025 Refill [facility] CHC MED & PEDS 505 [place], [place] [phone] Verna Sharpe MD 505 [place] [address] Hypertension, unspecified type Social History Tobacco Use [...] Description 07/13/2025 9:00 AM EDT Clinical Support [facility] CHC MED & PEDS 505 [place] [address] Lucille Rutledge, TOSIN 505 [place] [address] documented as of this encounter Visit Diagnoses Diagnosis Hypertension, unspecified type documented in this encounter Additional Health Concerns Assessment Noted Time PHQ-9 Depression Total Score: 7 10/07/20 24 1:49 PM EST documented as of this encounter Care Teams Tractor Operator Laser Leveling Relationship Specialty Start Date End Date Verna Sharpe MD [address] [place] [address] PCP - General Family Medicine 11/05/21 documented as of this encounter
--- OUTSIDE RECORDS SUMMARY | 2025-06-30 14:50 | XMS_ITS | Encounter Summary ---
Author Organization [employer] Address [address] [facility] 7t [place] [address] Care Team Providers Care Glassware Defect Repairer Name Role Phone Verna Sharpe MD Primary Care Provider [phone] Reason for Visit * Reason Comments Med Refill Encounter Details Date Type Department Care Team ([facility] st Contact Info) Description 06/29/2025 Refill [facility] CHC MED & PEDS 505 [place], [place] [phone] Verna Sharpe MD 505 [place] [address] Lumbar radiculopathy Social History Tobacco Use Types [...] Description 07/13/2025 9:00 AM EDT Clinical Support [facility] MED & PEDS 505 [place] [address] Lucille Rutledge, TOSIN 505 [place] [address] documented as of this encounter Visit Diagnoses Diagnosis Lumbar radiculopathy Thoracic or lumbosacral neuritis or radiculitis, unspecified documented in this encounter Additional Health Concerns Assessment Noted Time PHQ-9 Depression Total Score: 7 10/07/20 24 1:49 PM EST documented as of this encounter Care Teams Glassware Defect Repairer Relationship Specialty Start Date End Date Verna Sharpe MD [address] [place] [address] PCP - General Family Medicine 11/05/21 documented as of this encounter
--- OUTSIDE RECORDS SUMMARY | 2025-06-30 14:51 | XMS_ITS | Encounter Summary ---
Author Organization [employer] [facility] Address [address] [place] [address] 7 [place] [address] Care Team Providers Care Room Clerk Name Role Phone Verna Sharpe MD Primary Care Provider [phone] Encounter Details Date Type Department Care Team ([facility] Contact Info) Description 10/14/2022 Orders Only [facility] MED & PEDS [address] [place], [place] [phone] Verna Sharpe MD 505 [place], [place] [phone] Vitamin D deficiency (Primary Dx) Social History Tobacco Use Types Packs/Day Years Used Date Smoking Tobacco: Never Assessed Sex and Gender Information Value Date Recorded Sex Assigned at Male 08/26/2022 10:35 AM EDT Legal Sex Male 10:35 AM EDT Gender Identity Male 08/26/2022 10:35 AM EDT Sexual Orientation Straight 08/26/2022 10 :35 AM EDT documented as of this encounter Plan of Treatment Upcoming Encounters Date Type Department Care Team (Late Contact Info) Description 07/13/2025 9:00 AM EDT Clinical Support [facility] MED & PEDS [address] [place], [place] [phone] Lucille Rutledge, TOSIN 505 [place], [place] [phone] documented as of this encounter Visit Diagnoses Diagnosis Vitamin D deficiency- Primary documented in this encounter Care Teams Room Clerk Relationship Specialty Start Date End Date Verna Sharpe MD [address] [place] [address] PCP - General Family Medicine 11/05/21 documented as of this encounter
--- OUTSIDE RECORDS SUMMARY | 2025-06-30 14:51 | XMS_ITS | Encounter Summary ---
Author Organization [employer] Address [address] [place] [address] 7t [place] [address] Care Team Providers Care Mineralogy Teacher Name Role Phone Verna Sharpe MD Primary Care Provider [phone] Reason for Visit * Reason Comments Med Refill Encounter Details Date Type Department Care Team ([facility] Contact Info) Description 04/21/2023 Refill [facility] CHC MED & PEDS 505 [place], [place] [phone] Verna Sharpe MD [address] [place] [address] Hypertension, unspecified type Social History Tobacco Use Types Packs/Day Years Used Date Smoking Tobacco: Never Passive Smoke Exposure: Never Smokeless Tobacco: Never Alcohol Use Standard Drinks/Week Comments Never 0 (1 standard drink = 0.6 oz pur e alcohol) Depression Answer Date Recorded Patient Health Questionnaire-9 Score 9 10/31/2022 Depression Answer Date Recorded Patient Health Questionnaire-2 Score 2 10/31/2022 Sex and Gender Information Value Date Recorded Sex Assigned at Male 08/26/2022 10:35 AM EDT Legal Sex Male 10:35 AM EDT Gender Identity Male 08/26/2022 10:35 AM EDT Sexual Orientation Straight 08/26/2022 10 :35 AM EDT COVID-19 Exposure Response Date Recorded In the last 10 days, have yo u been in contact with someone who was confirmed or suspected to have Coronavirus/COVID-19? No / Unsure 04/10/2023 8:57 AM EDT documented as of this encounter Plan of Treatment Upcoming Encounters Date Type Department Care Team ([facility] Contact Info) Description 07/13/2025 9:00 AM EDT Clinical Support [facility] CHC MED & PEDS [address] [place] [address] Lucille Rutledge, RN [address] [place] [address] documented as of this encounter Visit Diagnoses Diagnosis Hypertension, unspecified type documented in this encounter Additional Health Concerns Assessment Noted Time PHQ-9 Depression Total Score: 9 10/31/19 23 1:38 PM EST documented as of this encounter Care Teams Mineralogy Teacher Relationship Specialty Start Date End Date Verna Sharpe MD [address] [place] [address] PCP - General Family Medicine 11/05/21 documented as of this encounter
--- OUTSIDE RECORDS SUMMARY | 2025-06-30 14:51 | XMS_ITS | Encounter Summary ---
Author Organization [employer] Address [address] [facility] 7t [place] [address] Care Team Providers Care Water Main Pipe Layer Name Role Phone Verna Sharpe MD Primary Care Provider [phone] Encounter Details Date Type Department Care Team (Late st Contact Info) Description 12/29/2024 Orders Only [facility] MEDICINE [address] [place] [address] Johnna Mclean MD [address] [place] [address] SUSAN positive (Primary Dx) Social History Tobacco Use Types [...] 07/13/2025 9:00 AM EDT Clinical Support [facility] MED & PEDS 505 [place] [address] Lucille Rutledge RN 505 [place] [address] Scheduled Orders Name Type Priority Associated Diagnoses Orde r Schedule Hepatic Function Panel Lab Routine SUSAN positive Expected: 12/29/2024 (Approximate), Expires: 12/29/2025 documented as of this encounter Visit Diagnoses Diagnosis SUSAN positive- Primary documented in this encounter Additional Health Concerns Assessment Noted Time PHQ-9 Depression Total Score: 7 10/07/20 24 1:49 PM EST documented as of this encounter Care Teams Water Main Pipe Layer Relationship Specialty Start Date End Date Verna Sharpe MD [address] [place] [address] PCP - General Family Medicine 11/05/21 documented as of this encounter
--- OUTSIDE RECORDS SUMMARY | 2025-06-30 14:51 | XMS_ITS | Encounter Summary ---
Author Organization [employer] Address [address] [place] [address] 7 [place] [address] Care Team Providers Care Furniture Refinisher Name Role Phone Verna Sharpe MD Primary Care Provider [phone] Reason for Visit * Reason Onset Date Comments Med Refill 03/05/2025 Encounter Details Date Type Department Care Team ([facility] st Contact Info) Description 03/05/2025 Refill [facility] CH[facility] MED & PEDS [address] [place] [address] Verna Sharpe MD [address] [place] [address] Lumbar radiculopathy Social History Tobacco Use Types [...] Description 07/13/2025 9:00 AM EDT Clinical Support [facility] MED & PEDS [address] [place] [address] Lucille Rutledge RN 505 [place] [address] documented as of this encounter Visit Diagnoses Diagnosis Lumbar radiculopathy Thoracic or lumbosacral neuritis or radiculitis, unspecified documented in this encounter Additional Health Concerns Assessment Noted Time PHQ-9 Depression Total Score: 7 10/07/20 24 1:49 PM EST documented as of this encounter Care Teams Furniture Refinisher Relationship Specialty Start Date End Date Verna Sharpe MD [address] [place] [address] PCP - General Family Medicine 11/05/21 documented as of this encounter
--- OUTSIDE RECORDS SUMMARY | 2025-06-30 14:51 | XMS_ITS | Encounter Summary ---
Author Organization Only [employer] Address 75 [facility] 7t [place] [address] Care Team Providers Care Mingler Operator Name Role Phone Verna Sharpe MD Primary Care Provider [phone] Reason for Visit * Reason Onset Date Comments Med Refill 04/05/2025 Encounter Details Date Type Department Care Team ([facility] st Contact Info) Description 04/05/2025 Telephone [facility] MEDICINE [address] [place] [address] Verna Sharpe MD 505 [place] [address] Med Refill Social History Tobacco Use Types [...] encounter Miscellaneous Notes * Telephone Encounter - Kaylen Romeo - 04/05/2025 8:10 AM EDT TC from pt requesting medication refill. Medications needing refill : traMADol (Ultram) 50 MG tablet To be sent to: [facility]/pharmacy #[id number] - [place], [place] - [address] [place] [address] [facility] documented in this encounter Plan of Treatment Upcoming Encounters Date Type Department Care Team (Late st Contact Info) Description 07/13/2025 9:00 AM EDT Clinical Support [facility] MED & PEDS [address] [place] [address] Lucille Rutledge, TOSIN 505 [place] [address] documented as of this encounter Visit Diagnoses Not on filedocumented in this encounter Additional Health Concerns Assessment Noted Time PHQ-9 Depression Total Score: 7 10/07/20 24 1:49 PM EST documented as of this encounter Care Teams Mingler Operator Relationship Specialty Start Date End Date Verna Sharpe MD [address] [place] [address] PCP - General Family Medicine 11/05/21 documented as of this encounter
--- OUTSIDE RECORDS SUMMARY | 2025-06-30 14:51 | XMS_ITS | Encounter Summary ---
Author Organization [employer] Address 75 [facility] 7t [place] [address] Care Team Providers Care Ice Resurfacing Machine Operators Name Role Phone Verna Sharpe MD Primary Care Provider [phone] Reason for Visit * Reason Onset Date Comments Med Refill 05/24/2024 Encounter Details Date Type Department Care Team ([facility] st Contact Info) Description 05/24/2024 Telephone [facility] MEDICINE 230 [place] [address] Verna Sharpe MD 505 [place] [address] Med Refill Social History Tobacco Use Types Packs/Day Years Used Date Smoking Tobacco: Never Passive Smoke Exposure: Never Smokeless Tobacco: Never Alcohol Use Standard Drinks/Week Comments Never 0 (1 standard drink = 0.6 oz pur e alcohol) Depression Answer Date Recorded Patient Health Questionnaire-9 Score 11 12/23/2023 Patient Health Questionnaire-9 Score 11 12/23/2023 Last PHQ-9: Questionnaire Data Not on file 0 12/23/2023 Housing Stability Answer Date Recorded What is [...] Answer Date Recorded Patient Health Questionnaire-2 Score 3 12/23/2023 Sex and Gender Information Value Date Recorded Sex Assigned at Male 08/26/2022 10:35 AM EDT Legal Sex Male 10:35 AM EDT Gender Identity Male 08/26/2022 10:35 AM EDT Sexual Orientation Straight 08/26/2022 10 :35 AM EDT documented as of this encounter Miscellaneous Notes * Telephone Encounter - Shirlene Ball - 05/24/2024 9:17 AM EDT TC from pt requesting medication refill. Medications needing refill : traMADol (Ultram) 50 MG tablet To be sent to: [facility] #[id number] - [place], [place] - [address] documented in this encounter Plan of Treatment Upcoming Encounters Date Type Department Care Team (Late st Contact Info) Description 07/13/2025 9:00 AM EDT Clinical Support [facility] CHC MED & PEDS [address] [place] [address] Lucille Rutledge, RN 505 [place] [address] documented as of this encounter Visit Diagnoses Not on filedocumented in this encounter Additional Health Concerns Assessment Noted Time PHQ-9 Depression Total Score: 11 024 1:55 PM EST documented as of this encounter Care Teams Ice Resurfacing Machine Operators Relationship Specialty Start Date End Date Verna Sharpe MD [address] [place] [address] PCP - General Family Medicine 11/05/21 documented as of this encounter
--- OUTSIDE RECORDS SUMMARY | 2025-06-30 14:51 | XMS_ITS | Encounter Summary ---
Author Organization [employer] Address [address] [facility] 7t [place] [address] Care Team Providers Care Consular Officer Name Role Phone Verna Sharpe MD Primary Care Provider [phone] Reason for Visit * Reason Onset Date Comments Med Refill 10/04/2024 Encounter Details Date Type Department Care Team ([facility] st Contact Info) Description 10/04/2024 Telephone [facility] MEDICINE 230 [place] [address] Verna Sharpe MD 505 [place] [address] Med Refill Social History Tobacco Use Types [...] AM EDT documented as of this encounter Functional Status * Over the past 2 weeks, how often have you been bothered by any of the following problems? Question Answer Date of Assessment Author Patient Health Questionnaire-2 Score 2 09/26 1:49 PM Jaimee Abbasi [place] * Little interest or pleasure in doing things Answer Date of Assessment Author Several days 10/07/2024 1:49 PM Jaimee Abbasi [place] * Feeling down, depressed, or hopeless Answer Date of Assessment Author Several days 10/07/2024 1:49 PM Jaimee Abbasi [place] * Trouble falling or staying asleep, or sleeping too much Answer Date of Assessment Author More than half the days 10/07/2024 1:49 PM Jaimee Alcantar MA * Feeling tired or having little energy Answer Date of Assessment Author Several days 10/07/2024 1:49 PM Jaimee Abbasi MA * Poor appetite or overeating Answer Date of Assessment Author More than half the days 10/07/2024 1:49 PM Jaimee Alcantar MA * Feeling bad about yourself - or that you are a failure or have let yourself or your family down Answer Date of Assessment Author Not at all 10/07/2024 1:49 PM Jaimee Abbasi MA * Trouble concentrating on things, such as reading the newspaper or watching television Answer Date of Assessment Author Not at all 10/07/2024 1:49 PM Jaimee Abbasi MA * Moving or speaking so slowly that other people could have noticed? Or the opposite - being so fidgety or restless that you have been moving around a lot more than usual. Answer Date of Assessment Author Not at all 10/07/2024 1:49 PM Jaimee Abbasi MA * Thoughts that you would be better off or hurting yourself in some way Answer Date of Assessment Author Not at all 10/07/2024 1:49 PM Jaimee Abbasi MA * Patient Health Questionnaire-9 Score Answer Date of Assessment Author 7 10/07/2024 1:49 PM Jaimee Abbasi MA * How difficult have these problems made it for you to do your work, take care of things at home, or get along with other people? Answer Date of Assessment Author Not difficult at all 10/07/2024 1:49 PM EST Jaimee Alejo MA documented as of this encounter Miscellaneous Notes * Telephone Encounter - Yang Perez - 10/04/2024 8:55 AM EST TC from pt requesting medication refill. Medications needing refill : traMADol (Ultram) 50 MG tablet To be sent to: [facility]/pharmacy #[id number] documented in this encounter Plan of Treatment Upcoming Encounters Date Type Department Care Team (Late st Contact Info) Description 07/13/2025 9:00 AM EDT [facility] [address] [place] [address] Lucille Rutledge, RN 505 [place] [address] documented as of this encounter Visit Diagnoses Not on filedocumented in this encounter Additional Health Concerns Assessment Noted Time PHQ-9 Depression Total Score: 11 12/23/ 024 1:55 PM EST documented as of this encounter Care Teams Consular Officer Relationship Specialty Start Date End Date Verna Sharpe MD [address] [place] [address] PCP - General Family Medicine 11/05/21 documented as of this encounter
--- OUTSIDE RECORDS SUMMARY | 2025-06-30 14:51 | XMS_ITS | Clinical Summary ---
Author Organization [address] [place] [address] Address [address] [place] [address] Phone Care Team Providers Care Padder Cushion Name Role Phone Verna Sharpe MD Primary Care Provider [phone] Allergies No known active allergies Medications fluticasone [...] (BMI) of 45.0 to 49.9 in adult ([facility] V24, CMS/[facility] V28) Surgical History Surgery Date Site/Laterality Comments HAND SURGERY PROCEDURE: [place] UNLISTED PROCEDURE HANDS/FINGERS Medical History Medical History Date Comments Hypertension DX:Hypertension Obesity DX:Obesity Obstructive sleep apnea DX:Obstr uctive sleep apnea Diabetes (CMS/HCC V24, CMS[facility] V28) DX:Diabetes (HCC) Back pain DX:Back [...] 09/25/2022 Social Influencers of Health Screening 09/25/2022 Depression Screening 10/27/2024 Hypertension/CHF/CAD Annual BMP Blood Test 02/09/2025 COVID-19 Vaccine (1 - 2023-2 5 season) 2025 Influenza Vaccine (#1) 2025 , 08/12/2019 Cholesterol [...] HEALTHCARE MEDICARE [employer] MEDICARE Care Teams Padder Cushion Relationship Specialty Start Date End Date Verna Sharpe MD [address] [place] [address] PCP - General Family Medicine 12/02/24
--- OUTSIDE RECORDS SUMMARY | 2025-06-30 14:51 | XMS_ITS | Encounter Summary ---
Author Organization [email or web address] Address 75 [facility] 7t [place] [address] Care Team Providers Care Tool Storage Attendant Name Role Phone Verna Sharpe MD Primary Care Provider Reason for Visit * Reason Onset Date Comments Medication Question 01/08/2024 Encounter Details Date Type Department Care Team ([facility] Contact Info) Description 01/08/2024 Telephone [facility] MEDICINE [address] [place] [address] Verna Sharpe MD [address] [place] [address] Medication Question Social History Tobacco Use Types Packs/Day Years [...] encounter Miscellaneous Notes * Telephone Encounter - Jaxson La - 01/08/2024 9:52 AM EDT Tc from patient calling to request the status of the PA for the medication Semaglutide-Weight Management (Wegovy) 0.25 MG/0.5ML solution auto-injector policy writer sales did inform the patient that the PA was sent back in 12/24 when the patient had MH now due to the change in insurance a new one has to be sentand policy writer sales also informed the patient the medication is in back order documented in this encounter Plan of Treatment Upcoming Encounters Date Type Department Care Team (Late st Contact Info) Description 07/13/2025 9:00 AM EDT Clinical Support [facility] MED & PEDS 505 [place] [address] Lucille Rutledge, TOSIN [address] [place] [address] documented as of this encounter Visit Diagnoses Not on filedocumented in this encounter Additional Health Concerns Assessment Noted Time PHQ-9 Depression Total Score: 11 024 1:55 PM EST documented as of this encounter Care Teams Tool Storage Attendant Relationship Specialty Start Date End Date Verna Sharpe MD [address] [place] [address] PCP - General Family Medicine 11/05/21 documented as of this encounter
--- OUTSIDE RECORDS SUMMARY | 2025-06-30 14:51 | XMS_ITS | Encounter Summary ---
Author Organization [employer] Address [address] [place] [address] 7t [place] [address] Care Team Providers Care Radio Sales Account Executive Name Role Phone Verna Sharpe MD Primary Care Provider [phone] Encounter Details Date Type Department Care Team ([facility] Contact Info) Description 05/15/2023 Orders Only [facility] CHC MED & PEDS [address] [place], [place] [id number] Johnna Mclean MD [address] [place] [address] Positive SUSAN (antinuclear antibody) (Primary Dx); Polyarthralgia Social History Tobacco Use Types Packs/Day Years [...] suspected to have Coronavirus/COVID-19? No / Unsure 05/06/2023 9:01 AM EDT documented as of this encounter Plan of Treatment Upcoming Encounters Date Type Department Care Team ([facility] Contact Info) Description 07/13/2025 9:00 AM EDT Clinical Support [facility] CHC MED & PEDS [address] [place] [address] Lucille Rutledge, RN [address] [place] [address] documented as of this encounter Visit Diagnoses Diagnosis Positive SUSAN (antinuclear antibody)- Primary Other and unspecified nonspecific immunological findings Polyarthralgia Pain in joint, multiple sites documented in this encounter Additional Health Concerns Assessment Noted Time PHQ-9 Depression Total Score: 9 10/31/19 23 1:38 PM EST documented as of this encounter Care Teams Radio Sales Account Executive Relationship Specialty Start Date End Date Verna Sharpe MD [address] [place] [address] PCP - General Family Medicine 11/05/21 documented as of this encounter"
--- OUTSIDE RECORDS SUMMARY | 2025-06-30 14:51 | XMS_ITS | Encounter Summary ---
Author Organization [employer] Address 75 [facility] 7 [place] [address] Care Team Providers Care Cupola Patcher Helper Name Role Phone Verna Sharpe MD Primary Care Provider [phone] Reason for Visit * Reason Onset Date Comments Medication Question 12/27/2024 Encounter Details Date Type Department Care Team ([facility] Contact Info) Description 12/27/2024 Telephone [facility] CHC MED & PEDS [address] [place] [address] Verna Sharpe MD [address] [place] [address] Medication Question Social History Tobacco Use Types [...] encounter Miscellaneous Notes * Telephone Encounter - Lily Duncan - 12/27/2024 9:39 AM EST Tc from pt calling to inform was seen with supervisor order takers last week and requested to contact pcp office to request a weight lost injection that is covered by insurance. Please call to clarify. documented in this encounter Plan of Treatment Upcoming Encounters Date Type Department Care Team (Late st Contact Info) Description 07/13/2025 9:00 AM EDT Clinical Support [facility] CHC MED & PEDS [address] [place] [address] Lucille Rutledge, RN [address] [place] [address] documented as of this encounter Visit Diagnoses Not on filedocumented in this encounter Additional Health Concerns Assessment Noted Time PHQ-9 Depression Total Score: 7 10/07/20 24 1:49 PM EST documented as of this encounter Care Teams Cupola Patcher Helper Relationship Specialty Start Date End Date Verna Sharpe MD [address] [place] [address] PCP - General Family Medicine 11/05/21 documented as of this encounter
--- OUTSIDE RECORDS SUMMARY | 2025-06-30 14:51 | XMS_ITS | Encounter Summary ---
Author Organization [employer] Address [address] [facility] 7 [place] [address] Care Team Providers Care Supervisor Electronic Testing Name Role Phone Verna Sharpe MD Primary Care Provider [phone] Reason for Visit * Reason Onset Date Comments Med Refill 01/31/2025 Encounter Details Date Type Department Care Team (Late st Contact Info) Description 01/31/2025 Refill [facility] MEDICINE [address] [place] [address] Johnna Mclean MD [address] [place] [address] Lumbar radiculopathy Social History Tobacco Use Types [...] 9:00 AM EDT Clinical Support [facility] MED & PEDS [address] [place] [address] Lucille Rutledge RN [address] [place] [address] documented as of this encounter Visit Diagnoses Diagnosis Lumbar radiculopathy Thoracic or lumbosacral neuritis or radiculitis, unspecified documented in this encounter Additional Health Concerns Assessment Noted Time PHQ-9 Depression Total Score: 7 10/07/20 24 1:49 PM EST documented as of this encounter Care Teams Supervisor Electronic Testing Relationship Specialty Start Date End Date Verna Sharpe MD [address] [place] [address] PCP - General Family Medicine 11/05/21 documented as of this encounter
--- OUTSIDE RECORDS SUMMARY | 2025-06-30 14:51 | XMS_ITS | Encounter Summary ---
Author Organization [employer] Address [address] [place] [address] 7 [place] [address] Care Team Providers Care Tank Pumper Panelboard Name Role Phone Verna Sharpe MD Primary Care Provider [phone] Reason for Visit * Reason Onset Date Comments Med Refill 03/08/2025 Encounter Details Date Type Department Care Team ([facility] st Contact Info) Description 03/08/2025 Refill [facility] CHC MED & PEDS [address] [place] [address] Verna Sharpe MD [address] [place] [address] Lumbar radiculopathy Social History Tobacco Use Types [...] [facility] [address] [place] [address] Lucille Rutledge RN [address] [place] [address] documented as of this encounter Visit Diagnoses Diagnosis Lumbar radiculopathy Thoracic or lumbosacral neuritis or radiculitis, unspecified documented in this encounter Additional Health Concerns Assessment Noted Time PHQ-9 Depression Total Score: 7 10/07/20 24 1:49 PM EST documented as of this encounter Care Teams Tank Pumper Panelboard Relationship Specialty Start Date End Date Verna Sharpe MD [address] [place] [address] PCP - General Family Medicine 11/05/21 documented as of this encounter
--- OUTSIDE RECORDS SUMMARY | 2025-06-30 14:51 | XMS_ITS | Clinical Summary ---
Author Organization [employer] Address [address] [facility] [address] [place] [address] Care Team Providers Care Blood Tester Name Role Phone Verna Sharpe MD Primary Care Provider [phone] Allergies Active Allergy Reactions Criticality Noted Date Comments Pollen Extract 03/10/2023 Other reaction(s): anesthesia Succinylcholine 03/10/2023 due to butyrylcholinesterase deficiency. rare enzymatic intolerance to succinylcholine Medications * This document contains information received from the source organization and may not represent a complete record from that organization. Aspirin Low Dose 81 MG EC tablet Take 81 mg by mouth in the morning. Active Diclofenac Sodium 1 % gel APPLY TOPICALLY TO THE AFFECTED AREA TWICE DAILY NEEDED FOR MILD PAIN Active famotidine (Pepcid) 40 MG tablet Take 40 mg by mouth at bedtime. 022 Active hydrOXYzine HCl (Atarax) 25 MG tablet Take 25 mg by mouth if needed in the morning, at noon, and at bedtime. Active rosuvastatin (Crestor) 20 MG tablet Take 20 mg by mouth in the morning. 022 Active polyethylene glycol-electroly cindy (Nulytely) 420 g solution MIX AND DRINK DIRECTED 023 Active triamcinolone (Kenalog) 0.1 % creamIndications :Sensitivity to sunlight,Pruritu s Apply topically if needed in the morning and at bedtime (pain and swelling). 80 g 3 023 Active Polypodium Leucotomos (Heliocare) 240 MG capsuleIndicatio ns:Sensitivity to sunlight,Pruritu s Take 240 mg by mouth in the morning. 30 capsule 3 023 Active Refresh Tears 0.5 % ophthalmic solution Administer 1 drop into both eyes 2 times daily. 023 Active fluticasone (Flonase Allergy Relief) 50 MCG/ACT nasal spray Administer 1-2 sprays into each nostril 2 times daily. 16 g 11 023 Active albuterol 108 (90 Base) MCG/ACT inhaler Inhale 2 puffs every 6 (six) hours if needed for wheezing. 18 g 11 023 Active desonide (DesOwen) 0.05 % creamIndications :Seborrheic dermatitis Apply topically 2 times daily. 90 g 1 023 Active betamethasone valerate (Valisone) 0.1 % creamIndications :Intrinsic eczema Apply topically if needed in the morning and at bedtime (dryness). 45 g 2 023 Active loperamide (Imodium) 2 MG capsule TAKE 1 CAPSULE BY MOUTH NEEDED IN THE MORNING AT NOON AND AT BEDTIME FOR DIARRHEA FOR UP TO 10 DAYS 023 Active loteprednol (Lotemax) 0.5 % ophthalmic suspension INSTILL 1 DROP INTO BOTH EYES TWICE DAILY NEEDED 024 Active EPINEPHrine (Epipen) 0.3 MG/0.3ML injection syringe 024 Active cetirizine (ZyrTEC) 10 MG tablet TAKE 1 TABLET BY MOUTH EVERY MORNING 90 tablet 1 024 Active Breo Ellipta 100-25 MCG/ACT aerosol powder INHALE 1 PUU BY MOUTH DAILY EVERY MORNING 60 each 024 Active glucose 4 g chewable tablet Chew 4 tablets (16 g) if needed for low blood sugar. 50 tablet 024 2024 Active chlorthalidone (Hygroton) 25 MG tabletIndication s:Primary hypertension Take 1 tablet (25 mg) by mouth Once per day. 90 tablet 1 025 Active ketoconazole (NIZOral) 2 % cream Apply topically Once per day. 025 Active gabapentin (Neurontin) 800 MG tabletIndication s:Neuropathy Take 1 tablet (800 mg) by mouth 2 times daily. 60 tablet 5 025 Active traZODone (Desyrel) 50 MG tablet TAKE 1 TABLET BY MOUTH AT BEDTIME 90 tablet 1 025 Active baclofen (Lioresal) 10 MG tabletIndication s:Lumbar radiculopathy Take 1 tablet (10 mg) by mouth 3 times daily. 90 tablet 025 Active enalapril (Vasotec) 20 MG tabletIndication s:Hypertension, unspecified type Take 1 tablet (20 mg) by mouth Once per day. 90 tablet 1 025 Active Tirzepatide-Weig ht Management (Zepbound) 2.5 MG/0.5ML solution auto-injectorInd ications:Type 2 diabetes mellitus without complication, without long-term current use of insulin ([facility]),Class 3 severe obesity due to excess calories with serious comorbidity and body mass index (BMI) of 45.0 to 49.9 in adult,Obstructiv e sleep apnea syndrome Inject 0.5 mL (2.5 mg) under the skin 1 (one) time per week. 2 mL 1 025 Active ibuprofen 600 MG tablet TAKE 1 TABLET (600 MG) BY MOUTH EVERY 8 (EIGHT) HOURS IF NEEDED FOR MILD PAIN. 60 tablet 025 Active naloxone (Narcan) 4 mg/0.1 mL nasal spray Administer 1 spray (4 mg) into affected nostril(s) if needed for opioid reversal. May repeat every 2-3 minutes if needed, alternating nostrils, until medical assistance becomes available. 2 each 2 025 2025 Active lansoprazole (Prevacid) [address] capsule TAKE 1 CAPSULE BY MOUTH TWICE DAILY 180 capsule 1 025 Active traMADol (Ultram) 50 MG tabletIndication s:Cervical radiculopathy Take 1 tablet (50 mg) by mouth every 12 (twelve) hours if needed for severe pain. 56 tablet 025 Active cyclobenzaprine (Flexeril) 10 MG tabletIndication s:Lumbar radiculopathy TAKE 1 TABLET BY MOUTH THREE TIMES A DAY FOR 10 DAYS 30 tablet 025 Active lansoprazole (Prevacid) [address] capsule TAKE 1 CAPSULE BY MOUTH TWICE DAILY 180 capsule 1 025 2024 Discontinued ibuprofen 600 MG tablet TAKE 1 TABLET (600 MG) BY MOUTH EVERY 8 (EIGHT) HOURS IF NEEDED FOR MILD PAIN. 60 tablet 025 2024 Discontinued cyclobenzaprine (Flexeril) 10 MG tabletIndication s:Lumbar radiculopathy TAKE 1 TABLET BY MOUTH THREE TIMES A DAY FOR 10 DAYS 30 tablet 025 2024 Discontinued(R eorder (will not trigger notification to Pharmacy)) traMADol (Ultram) 50 MG tabletIndication s:Cervical radiculopathy Take 1 tablet (50 mg) by mouth every 12 (twelve) hours if needed for severe pain. 24 tablet 025 2024 Discontinued(R eorder (will not trigger notification to Pharmacy)) traMADol (Ultram) 50 MG tabletIndication s:Cervical radiculopathy Take 1 tablet (50 mg) by mouth every 12 (twelve) hours if needed for severe pain. 24 tablet 025 2024 Discontinued(R eorder (will not trigger notification to Pharmacy)) Active Problems Problem Noted Date Diagnosed Date Bloating 05/19/2025 Assessment & Plan (05/19/2025 11:30 AM EDT): Patient reports abdominal bloating and inflammation that began this morning. Symptoms are associated with a feeling of faintness when the bloating is severe. He has a history of severe constipation and reports not having had a bowel movement for a long time. Daily consumption of onions and carbonated beverages (Ice Jose) may be contributing factors. He has been using Gaviscon, which contains magnesium and could potentially exacerbate bloating. Previous lab tests from 2 years ago were unremarkable. He denies having a formal diagnosis of Irritable Bowel Syndrome (IBS) but reports IBS-like symptoms. Differential diagnoses include functional gastrointestinal disorders, motility issues, and dietary-induced symptoms. Plan: - Discontinue Gaviscon due to potential exacerbation of bloating - Start lactulose for constipation - Start Simethicone for gas - Refer to Gastroenterology for further evaluation and management - Recommend reduction in carbonated beverage intake - Recommend reduction in onion consumption Chronic right shoulder pain 05/12/2025 Type 2 diabetes mellitus wit hout complication, without long-term current use of insulin 04/22/2025 Depression, recurrent 02/12/2024 Exercise counseling 12/23/2023 Upper extremity pain, anterior, right 10/16/2023 Assessment & Plan (10/16/2023 9:25 AM EST): R upper ext pain exacerbated, paraspinal spasms, no known precipitant, hold off imaging. Will send muscle relaxer & also 5 day dose of percocet. Patient aware this will not be a chronic prescription. Intolerance, food 10/16/2023 Assessment & Plan (10/16/2023 9:26 AM EST): Reports went he went to [place] didn't tolerate bread or rice well, reports this does not happen with other meals. Persistent he wants to see leather parts matcher. 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 Previous labs with SUSAN positive findings. Following with dermatology. SUSAN positive 06/26/2023 Obstructive sleep apnea syndrome 03/10/2023 Assessment & Plan (05/19/2025 11:29 AM EDT): Reviewed indications for pharmacotherapy with patient for JOSÉ MIGUEL, he will benefit of Zepbound given his morbid obesity. Discussed side effects with patient: nausea, vomiting, diarrhea & risk of pancreatitis. No contraindications identified: , hx of pancreatitis, hx of medullary thyroid cancer or MEN 2. Will need to generate PA for Zepbound to treat obstructive sleep apnea. Recent phase 3 randomized controlled trials have demonstrated that tirzepatide (Zepbound) significantly reduces the severity of obstructive sleep apnea (JOSÉ MIGUEL) in adults with obesity, as measured by reductions in the apnea-hypopnea index (AHI), regardless of whether patients are using positive airway pressure (PAP) therapy. In these studies, tirzepatide led to clinically meaningful improvements in AHI, hypoxic burden, sleep-related patient-reported outcomes, and cardiometabolic parameters, with a substantial proportion of patients achieving AHI thresholds below which PAP therapy may not be indicated. These effects were consistent across subgroups stratified by age, sex, BMI, and baseline JOSÉ MIGUEL severity Assessment & Plan (03/10/2023 1:33 PM EDT): Patient with complaints of headaches and lowered BP readings after yaritza of sleep apnea machine. Will refer to sleep specialist for further evaluation. Mild intermittent asthma without complication History of substance abuse 03/10/2023 Butyrylcholinesterase deficiency 03/10/2023 Cervical radiculopathy 03/10/2023 Assessment & Plan (11/04/2023 2:27 PM EST): Reports side effects with trial of tizanidine, will switch to baclofen. Also send trial of diclofenac. Lumbar radiculopathy 03/10/2023 Assessment & Plan (01/07/2025 3:06 PM EDT): - Given severity of symptoms, discussed ED vs OP management. Strong patient preference for OP management. Reviewed ED precautions - Start oxycodone-APAP 5-325mg Q12H PRN severe pain (10 tablets). Currently on tramadol for COT, but reports has not been helping with current pain. Advised to hold the tramadol while using the Percocet. Reviewed strict med safety and SE. - Referral to Pain Management for further eval and management. Assessment & Plan (02/13/2024 12:59 AM EDT): Refilled Tramadol Assessment & Plan (12/23/2023 4:42 PM EST): Refilled Tramadol for pain Chronic diarrhea of unknown origin 12/17/2022 Assessment & Plan (03/10/2023 1:30 PM EDT): Seen by gastro, will have colonoscopy repeated in 6 months and has ultrasound scheduled. Assessment & Plan (12/17/2022 4:50 PM EST): Reviewed labs that were sent in previous visit and medications that could precipitate his symptoms. At this point will refer to GI. Seborrheic dermatitis 12/17/2022 Assessment & Plan (06/26/2023 10:33 AM EDT): Continued symptoms will refill desonide 0.05% cream. Assessment & Plan (12/17/2022 4:51 PM EST): Patient requested refill of desonide which he uses for his SD. Class 3 severe obesity due t o excess calories with serious comorbidity and body mass index (BMI) of 45.0 to 49.9 in adult 10/31/2022 Assessment & Plan (01/07/2025 7:15 PM EDT): -Previously on Wegovy in 2023, reports no longer covered by insurance -Plan: consult with PA/DME team to see if there are other anti-obesity meds on formulary through [employer] insurance. -Encouraged to continue with lifestyle interventions as able. Assessment & Plan (10/07/2024 2:42 PM EST): Discussed calorie deficit, recommended reduction of 20-30% of maintenance calories; advised to make nutritional modifications to avoid additional weight increase. Explained coverage issues for Wegovy. Assessment & Plan (06/14/2024 12:09 PM EDT): Discussed medications and refills as needed. Explained potential coverage issues with Pt concerning reducing dosage of Wegovy. Follow up in 2 months. Relevant Medications Metformin (Glucophage) 500 mg Tablet Semaglutide-Weight Management (Wegovy) 0.25 mg/0.5 ML solution auto-injector Baclofen (Lioresal) 5 mg tablet Assessment & Plan (04/05/2024 11:39 AM EDT): Discussed increasing dosage of Wegovy. Ordering lab work for further evaluation. Assessment & Plan (02/13/2024 1:00 AM EDT): Discussed calorie deficit, recommended reduction of 20-30% of maintenance calories; emergency preparedness coordinator referral offered, declined. Recommended to decrease soda and sugary beverage consumption. Recommended at least 20 g per meal of protein to assist with satiety. Recommended at least 150 min/week of moderate intensity exercise. Lost 10 lbs in 1 month, encouraged continued modification. Discussed order of foods (veggies, protein and then carbs), not missing breakfast. - The patient has shown progress in their weight loss journey, losing 10 pounds over the past month through dietary changes. The patient's medication dosage for weight loss has been adjusted, with a follow-up appointment scheduled in two months to monitor progress and address any concerns. I emphasized the importance of maintaining dietary changes and offered additional support if needed. Future Appointments Date Time Provider Department Center 04/05/2024 11:30 AM Verna Sharpe MD [facility] Assessment & Plan (12/23/2023 5:03 PM EST): I prescribed him Wegovy to help with weigh management. I discussed the benefits as well as side affects. Will followup in 3 months, will need to titrate med until maintenance dose. . Discussed calorie deficit, recommended reduction of 20-30% of maintenance calories; emergency preparedness coordinator referral offered. Recommended to decrease soda and sugary beverage consumption. Recommended at least 20 g per meal of protein to assist with satiety. Recommended at least 150 min/week of moderate intensity exercise. Assessment & Plan (10/31/2022 6:00 PM EST): Declined referral to bariatric surgery. Will start on metformin, prediabetic Discussed calorie deficit, recommended reduction of 20-30% of maintenance calories; emergency preparedness coordinator referral offered. Recommended to decrease soda and sugary beverage consumption. Recommended at least 20 g per meal of protein to assist with satiety. Recommended at least 150 min/week of moderate intensity exercise. Vitamin D deficiency 10/31/2022 Assessment & Plan (03/10/2023 1:30 PM EDT): Controlled. Will follow up in 6 months. Assessment & Plan (10/31/2022 6:00 PM EST): Discussed supplementation and taking vitamin D 4000 U PO qdaily, will recheck in 3-4 months Primary hypertension 10/31/2022 Assessment & Plan (11/08/2024 3:27 PM EST): BP is elevated, recheck 144/88. Follow up with nurse in 2 weeks with BP readings. Will assess medications on next visit. Nursing Visit Instructions: - If SBP < 140/DBP <90 mmHg in more than 75% of home self-monitoring, continue current medication regimen and make f/u with PCP in 3 month - If SBP >140-165/DBP >90-115 mmHg , incr enalapril 40 mg and f/u with PCP in 1 month - If SBP > 165/ DBP> 115 mmHg, consult with covering provider - If SBP <90/DBP <50 mmHg, consult with covering provider. Assessment & Plan (12/23/2023 4:08 PM EST): Controlled: Continue regimen refill Hygrton 25 mg Assessment & Plan (06/26/2023 10:32 AM EDT): Controlled. Continue current regimen. Assessment & Plan (12/17/2022 4:51 PM EST): Controlled. F/u in 4 months Assessment & Plan (10/31/2022 5:59 PM EST): Controlled. Cont current regimen f/u in 4 month Resolved Problems Problem Noted Date Diagnosed Date Resolved Date Functional diarrhea 12/11/2022 12/17/19 Assessment & Plan (12/11/2022 10:59 AM EST): Patient refers having episode of watery/soft diarrhea for almost a month, stool test have been negative so far, has follow up with GI, will provide loperamide, told to stay well hydrated. Dysuria 11/29/2022 12/17/2022 Acute diarrhea 11/29/2022 12/17/2022 Assessment & Plan (12/31/2022 2:24 PM EST): Will send testing to help elucidate etiology of diarrhea given continued symptoms. No red flags. Upper respiratory tract infection 10/31/2022 03/10/2023 Assessment & Plan (10/31/2022 6:01 PM EST): URI symptoms for 2 weeks, normal lung exam. Negative rapid testing, send out swab. Encounters Date Type Department Care Team Description 06/29/2025 Refill [facility] [address] [place] [address] Verna Sharpe MD Lumbar radiculopathy 06/29/2025 Refill [facility] [address] [place] [address] Jim Arriaga MD Cervical radiculopathy 06/29/2025 Refill [facility] [address] [place] [address] Verna Sharpe MD Lumbar radiculopathy 06/29/2025 Refill [facility] [address] [place] [address] Verna Sharpe MD Lumbar radiculopathy 06/17/2025 Telephone [facility] [address] [place] [address] Verna Sharpe MD Medication Question 06/17/2025 Telephone [facility] [address], [place] [id number] Verna Sharpe MD 06/16/2025 Refill [facility] [address], [place] [id number] Verna Sharpe MD Type 2 diabetes mellitus without complication, without long-term current use of insulin ([facility]); Class 3 severe obesity due to excess calories with serious comorbidity and body mass index (BMI) of 45.0 to 49.9 in adult; Obstructive sleep apnea syndrome 06/11/2025 Refill [facility] [address] [place] [address] Verna Sharpe MD Type 2 diabetes mellitus without complication, without long-term current use of insulin ([facility]); Class 3 severe obesity due to excess calories with serious comorbidity and body mass index (BMI) of 45.0 to 49.9 in adult; Obstructive sleep apnea syndrome 06/10/2025 Telephone [facility] [address] [place] [id number] Verna Sharpe MD Medication Question 06/08/2025 Refill [facility] [address] [place] [address] Verna Sharpe MD Type 2 diabetes mellitus without complication, without long-term current use of insulin ([facility]); Class 3 severe obesity due to excess calories with serious comorbidity and body mass index (BMI) of 45.0 to 49.9 in adult; Obstructive sleep apnea syndrome 06/05/2025 Refill [facility] [address] [place] [address] Verna Sharpe MD Cervical radiculopathy 06/05/2025 Refill [facility] [address] [place] [address] Verna Shrape MD Type 2 diabetes mellitus without complication, without long-term current use of insulin ([facility]); Class 3 severe obesity due to excess calories with serious comorbidity and body mass index (BMI) of 45.0 to 49.9 in adult; Obstructive sleep apnea syndrome 06/02/2025 Refill [facility] [address] [place] [address] Verna Sharpe MD 05/27/2025 9:45 AM EDT Office Visit [facility] [address] [place] [address] Tarishmael, Brandy, OD Type 2 diabetes mellitus without ophthalmic manifestations ([facility]) (Primary Dx); Presbyopia; Vitreoretinal tuft of left eye 05/27/2025 Telephone [facility] [address] [place] [address] Verna Sharpe MD Prior Authorization 05/27/2025 Travel 05/19/2025 Results Follow-Up [facility] [address] [place] [address] Verna Sharpe MD XR Shoulder 2+ Views Right 05/12/2025 10:45 AM EDT Office Visit [facility] [address] [place] [address] Verna Sharpe MD Bloating (Primary Dx); Type 2 diabetes mellitus without complication, without long-term current use of insulin ([facility]); Class 3 severe obesity due to excess calories with serious comorbidity and body mass index (BMI) of 45.0 to 49.9 in adult; Obstructive sleep apnea syndrome; Lumbar radiculopathy; Constipation, unspecified constipation type; Chronic right shoulder pain 05/12/2025 Travel 05/12/2025 Telephone [facility] [address], [place] [phone] Verna Sharpe MD Nurse Triage 05/05/2025 Telephone [facility] [address] [place] [address] Verna Sharpe MD 05/05/2025 Refill [facility] [address] [place] [address] Verna Sharpe MD Lumbar radiculopathy 05/05/2025 Telephone [facility] [address] [place] [address] Verna Sharpe MD Med Refill 05/04/2025 Refill [facility] [address] [place] [address] Johnna Mclean MD Type 2 diabetes mellitus without complication, without long-term current use of insulin ([facility]); Class 3 severe obesity due to excess calories with serious comorbidity and body mass index (BMI) of 45.0 to 49.9 in adult; Obstructive sleep apnea syndrome 05/03/2025 Refill [facility] [address] [place] [address] Verna Sharpe MD Hypertension, unspecified type 05/03/2025 Refill [facility] [address] [place] [address] Verna Sharpe MD Hypertension, unspecified type; Type 2 diabetes mellitus without complication, without long-term current use of insulin (CMS/HCC); Class 3 severe obesity due to excess calories with serious comorbidity and body mass index (BMI) of 45.0 to 49.9 in adult; Obstructive sleep apnea syndrome 04/28/2025 Refill [facility] [address] [place] [address] Verna Sharpe MD Hypertension, unspecified type 04/26/2025 9:30 AM EDT Clinical Support [facility] [address] [place] [address] Lucille Rutledge RN Lumbar radiculopathy 04/26/2025 Travel 04/22/2025 3:15 PM EDT Office Visit [facility] [address] [place] [address] Johnna Mclean MD Type 2 diabetes mellitus without complication, without long-term current use of insulin (CMS/HCC) (Primary Dx); Lumbar radiculopathy; Class 3 severe obesity due to excess calories with serious comorbidity and body mass index (BMI) of 45.0 to 49.9 in adult; Obstructive sleep apnea syndrome; Primary hypertension 04/22/2025 Refill [facility] [address] [place] [address] Johnna Mclean MD Type 2 diabetes mellitus without complication, without long-term current use of insulin (CMS/HCC); Class 3 severe obesity due to excess calories with serious comorbidity and body mass index (BMI) of 45.0 to 49.9 in adult; Obstructive sleep apnea syndrome 04/22/2025 Refill [facility] [address] [place] [address] Johnna Mclean MD Type 2 diabetes mellitus without complication, without long-term current use of insulin (CMS/HCC) 04/22/2025 Travel 04/18/2025 Refill [facility] [address] [place] [address] Verna Sharpe MD 04/15/2025 Travel 04/15/2025 Patient Outreach [facility] [address] [place] [address] Verna Sharpe MD Pre-visit Planning (SDOH screening negative and Tobacco screening negative) 04/05/2025 Refill [facility] [address] [place] [address] Verna Sharpe MD Lumbar radiculopathy 04/05/2025 Telephone [facility] [address] [place] [address] Lucille Rutledge RN Med Refill 04/05/2025 Telephone [facility] [address] [place] [address] Verna Sharpe MD Medication Question 04/05/2025 Telephone [facility] [address] [place] [address] Verna Sharpe MD Med Refill from Last 3 Months Immunizations Immunization Administration Dates Next Due Influenza injectable quadriv alent IIV4 with preservative 08/12/2019 Influenza injectable quadrivalent preservative f ree 12/04/2021 Influenza, IIV3, injectable 08/12/2019 Tdap 12/04/2021 Social History Tobacco Use Types Packs/Day Years Used Date Smoking Tobacco: Never Passive Smoke Exposure: Never Smokeless Tobacco: Never Tobacco Cessation:Counseling Given: Not Answered Alcohol Use Standard Drinks/Week Comments Never 0 (1 standard drink = 0.6 oz pur e alcohol) Depression Answer Date Recorded Patient Health Questionnaire-9 Score 7 10/07/2024 Patient Health Questionnaire-9 Score 7 10/07/2024 Last PHQ-9: Questionnaire Data Not on file 1 12/08/2023 Housing Stability Answer Date Recorded What is your housing situation today? I have peterosmel jones 04/15/[address] you [...] Orientation Straight 08/26/2022 10 :35 AM EDT Last Filed Vital Signs Vital Sign Reading [...] Mass Index 48.01 05/12/2025 10:46 AM EDT Plan of Treatment Upcoming Encounters Date Type Department Care Team (Late st Contact Info) Description 07/13/2025 9:00 AM EDT Clinical Support [facility] MED & PEDS [address] [place] [address] Lucille Rutledge, RN [address] [place] [address] Health Maintenance Due Date Last Done Comments CT Colonography 1975 FIT DNA/Cologuard 1975 FIT 1975 FOBT 1975 Sigmoidoscopy 1975 Family Planning (PISQ) 1990 Hepatitis B Vaccines (1 of 3 - 19+ 3-dose series) 1994 Pneumococcal Vaccine: Pediatrics (0 to 5 Years) and At-Risk Patients (6 to 49) Years (1 of 2 - PCV) 1994 Diabetes: Urine Protein Screening 10/10/2023 10/10/2022 Dental Oral Exam 05/24/2025 11/23/2024 Dental Prophylaxis 05/24/2025 11/23/2024 COVID-19 Vaccine ( season) 2025 Influenza Vaccine (#1) 2025 , 08/12/2019, 08/12/2019 Lipid Panel 07/02/2025 07/02/2024, 09/26, 11/20/2021 Zoster Vaccines (1 of 2) 2025 Depression Screening 10/07/2025 10/07/2024, 10/07/20 Diabetes: Hemoglobin A1C 10/22/2025 025, 11/08/2024, 10/10/2022, Additional history exists Diabetes: Foot Exam 11/08/2025 11/08/2024 Dental X-Ray: Bitewings 11/24/2025 11/23/2024 SDOH Screening 04/15/2026 04/15/2025 Tobacco Screening 04/22/2026 04/22/2025 Alcohol/Substance Use Screening 05/12/2026 05/12/2025 Disability Screening 05/12/2026 05/12/2025 Colonoscopy 07/28/2026 07/28/2023 Colorectal Cancer Screening 07/28/2026 Eye Exam 05/27/2027 05/27/2025, 08/10/2024, 05/27/2025, Additional history exists Dental X-Ray: Full Mouth 11/24/2027 11/23/2024 DTaP/Tdap/Td Vaccines (2 - Td or Tdap) 12/04/2031 12/04/2021 RSV Patients and Patients Aged 60 years or older (1 - 1-dose 75+ series) 2050 HIV Screening Completed 11/20/2021, 10/05/2019 Hepatitis C Screening Completed 11/20/2021, 019 HIB Vaccines Aged Out No longer eligi [...] patient's age to complete this topic Meningococcal Vaccine Aged Out No muriel jean eligible based on patient's age to complete this topic RSV under 20 months Aged Out No longe r eligible based on patient's age to complete this topic Rotavirus Vaccines Aged Out No longer eligible based on patient's age to complete this topic Procedures Procedure Name Priority Date/Time Associated Diagnosis Comments XR SHOULDER 2+ VIEWS RIGHT Routine 05/12/2025 11:55 AM EDT Chronic right shoulder pain POCT LALI-14 URINE DRUG SCREEN Routine 04/26/2025 9:46 AM EDT Lumbar radiculopathy POCT GLUCOSE Routine 04/22/2025 3:37 PM EDT Type 2 diabetes mellitus without complication, without long-term current use of insulin ([facility]) POCT GLYCATED HEMOGLOBIN, TOTAL Routine 04/22/2025 3:36 PM EDT Type 2 diabetes mellitus without complication, without long-term current use of insulin ([facility]) PROPHYLAXIS - ADULT Routine 11/23/2024 8 :00 AM EST INTRAORAL - COMPLETE SERIES OF RADIOGRAPHIC IMAGES Routine 11/23/2024 8:00 AM EST PERIODIC ORAL EVALUATION - ESTABLISHED PATIENT Routine 11/23/2024 8:00 AM EST LIPID PANEL, STANDARD Routine 07/02/2024 9:09 AM EDT Class 3 severe obesity due to excess calories with serious comorbidity and body mass index (BMI) of 45.0 to 49.9 in adult ([facility]) HM COLONOSCOPY Routine 07/28/2023 ALBUMIN, RANDOM URINE W/CREATININE Routine 10/10/2022 8:57 AM EST ZZZ HISTORICAL HEPATITIS C AB W/REFL TO HCV RNA, QN, PCR Routine 11/20/2021 8:52 AM EST HIV 1/2 ANTIGEN/ANTIBODY, FOURTH GENERATION W/RFL Routine 11/20/2021 8:52 AM EST from Last 3 Months or Most Recently Relevant to Health Maintenance Results * XR Shoulder 2+ Views Right (05/12/2025 11:55 AM EDT) Anatomical Region Laterality Modality Upper Extremities, Shoulder Right Radi ographic Imaging 05/12/2025 11:5 5 AM EDT Narrative 05/12/2025 12:28 PM EDT [address] [address] XRay Report Signed Patient: Randall Becerra MR#: [id number] : 1975 Acct:[id number] Age/Sex: 49 / M ADM Date: 05/12/25 Loc: ERIK.PATO Attending Dr: Verna Sharpe MD Ordering Physician: Verna Sharpe MD Date of Service: 05/12/25 Procedure(s): XR shoulder RT min 2V Accession Number(s): [id number] cc: Verna Sharpe MD EXAMINATION: XR SHOULDER, [...] 05/12/25 1225 DD/ 1155 TD/TT: 05/12/25 1203 Cold Patcher: Procedure Note Donotuseinterpreter, Image - 05/12/[address] [address] XRay Report Signed Patient: Prasanth BecerraerMR#: [id number] : 1975Acct:[id number] Age/Sex: 49 / MADM Date: 05/12/25 Loc: HO.XRAY Attending Dr: Verna Sharpe MD Ordering Physician: Verna Sharpe MD Date of Service: 05/12/25 Procedure(s): XR shoulder RT min 2V Accession Number(s): [id number] cc: Verna Sharpe MD EXAMINATION: XR SHOULDER, [...] 05/12/25 1225 DD/ 1155 TD/TT: 05/12/25 1203 Cold Patcher: us Verna Sharpe MD IMG XR PROCEDURES Edited Resu lt - Final * POCT LALI-14 Urine Drug Screen (04/26/2025 9:46 AM EDT) THC Negative Negative Cocaine Screen, Urine Negative Negative Opiate Screen, Urine Negative Negative Methamphetamine Screen Urine Negative Negative Amphetamine Screen, Urine Negative Negative Benzodiazepines Screen, Urine Negative Negative Barbiturate Screen, Urine Negative Negative Methadone Screen, Urine Negative Negative Buprenophine Screen, Urine Negative Negative TCA, Urine Negative Negative MDMA Urine Negative Negative ng/mL Oxycodone Screen, Urine Negative Negative Phencyclidine (PCP), Urine Negative Negative Propoxyphene, Urine Negative Negative Fentanyl, Urine Negative Negative Urine Urine specimen obtained by clean catch procedure / Unknown 04/26/2025 9:46 AM EDT Narrative Lucille Rutledge RN - 04/26/2025 9:46 AM EDT Internal Pass Control Lot# [id number] Exp: 08-26-26 eVrna Sharpe MD POINT OF CARE TEST ENTER/EDIT ORDERABLES Final Result * POCT Glucose (04/22/2025 3:37 PM EDT) Pathologist [facility] Glucose Blood, POC 99 60 - 200 mg/dL QC Media Lot # [id number] Lot# Expiration Date 477 Comment:random Blood Capillary blood specimen / Unknown 04/22/2025 3:37 PM EDT Johnna Mclean MD POINT OF CARE TEST ENTER/ED IT ORDERABLES Final Result * (ABNORMAL) POCT HGB A1C (04/22/2025 3:36 PM EDT) [facility] Hemoglobin A1C 6.7(A) 4.0 - 5.7 % QC Media Lot # [id number] Lot# Expiration Date Blood 04/22/2025 3:36 PM EDT Johnna Mclean MD POINT OF CARE TEST ENTER/ED IT ORDERABLES Final Result * (ABNORMAL) Lipid Panel, Standard (07/02/2024 9:09 AM EDT) Pathologist [facility] Triglycerides 160(H) <150 mg/dL [facility] Comment:Desirable Triglyceri de: less than 150 mg/dLBorderline High Triglyceride 150-199 mg/dLHigh Triglyceride: 200-499 mg/dLVery High Triglyceride: greater than or equal to 5OO mg/dL Cholesterol 187 <200 mg/dL [facility] Comment:Desirable Cholestero l: less than 200 mg/dLBorderline High Cholesterol: 200-239 mg/dLHigh Cholesterol: greater than 239 mg/dL LDL Cholesterol Calculated 112(H) <100 mg/dL [facility] Comment:Desirable LDL: less than 100 mg/dLNear Optimal/Above Optimal LDL: 110- 129 mg/dLBorderline High LDL: 130-159 mg/dLHigh LDL: 160-189 mg/dLVery High LDL: greater than or equal to 190 mg/dL HDL Cholesterol 43 >40 mg/dL [facility] Comment:Desirable HDL: great er than 40 mg/dL Note: This HDL assay may give artificially low results in patients with liver disease. Blood Venous blood specimen / Unknown 07/02/2024 9:09 AM EDT 07/02/2024 2:03 PM EDT Verna Sharpe MD LAB BLOOD ORDERABLES Final Re sult [facility] [address] [place] [address] [phone] * (ABNORMAL) Colonoscopy (07/28/2023) Colonoscopy Abnormal(A ) Normal Narrative Verna Sharpe MD - 07/28/2023 Colonoscopy in [facility], pathology with tubular adenoma and hyperplastic polyp, TA size > 6 mm rpt in 3 yrs Historical Provider HEALTH MAINTENANCE Final Result * Albumin, Random Urine W/Creatinine (10/10/2022 8:57 AM EST) Creatinine, Random Urine 147 20 - 320 mg/dL Tip or Skip [place] [facility] Albumin, Urine 3.5 See Note: mg/dL [facility] [place] [facility] Comment: Reference Range: Reference Range Not established Albumin/Creatinin e Ratio, Random Urine 24 <30 mcg/mg creat [facility] [place] [facility] Comment: The ADA defines abnormalities in albumin excretion as follows: Albuminuria Category Result (mcg/mg creatinine) Normal to Mildly increased <30 Moderately increased 30-299 Severely increased > OR = 300 The ADA recommends that at least two of three specimens collected within a 3-6 month period be abnormal before considering a patient to be within a diagnostic category. 10/10/2022 8:57 AM EST 10/10/2022 8:57 AM EST Narrative [facility] - 10/12/2022 9:20 AM EST FASTING:YES FASTING: YES Verna Sharpe MD LAB URINE ORDERABLES Final Re sult [facility] [address] [facility] [facility] [place] [address] Tip or Skip [facility] [address] [facility] [facility], ([address]) [place] [address] * HEPATITIS C AB W/REFL TO HCV RNA, QN, PCR (11/20/2021 8:52 AM EST) HEPATITIS C ANTIBODY NON-REACT PAULETTE NON-REACT PAULETTE [facility] INDEX 0.05 <1.00 [facility] Comment: HCV antibody was non-reactive. There is no laboratory evidence of HCV infection. In most cases, no further action is required. However, if recent HCV exposure is suspected, a test for HCV RNA (test code 14165) is suggested. For additional information please refer to http://[employer]oomb[employer]/faq/OBE11b2 (This link is being provided for informational/ educational purposes only.) 11/20/2021 8:52 AM EST us Verna Sharpe MD HISTORICAL/NON ORDERABLE LABS Final Result [facility] [address] * HIV 1/2 ANTIGEN/ANTIBODY,FOURTH GENERATION W/RFL (11/20/2021 8:52 AM EST) HIV-1/2 ANTIGEN AND ANTIBODIES, 4TH GENERATION W/ REFLEX NON-REACT PAULETTE NON-REACT PAULETTE [facility] Comment: HIV-1 antigen and HIV-1/HIV-2 antibodies were not detected. There is no laboratory evidence of HIV infection. PLEASE NOTE: This information has been disclosed to you from records whose confidentiality may be protected by state law. If your state requires such protection, then the state law prohibits you from making any further disclosure of the information without the specific written consent of the person to whom it pertains, or as otherwise permitted by law. A general authorization for the release of medical or other information is NOT sufficient for this purpose. For additional information please refer to http://[employer].Zealify/faq/LDQ963 (This link is being provided for informational/ educational purposes only.) The performance of this assay has not been clinically validated in patients less than 2 years old. 11/20/2021 8:52 AM EST us Verna Sharpe MD LAB BLOOD ORDERABLES Final Re sult [facility] [address] from Last 3 Months or Most Recently Relevant to Health Maintenance Insurance MEDICARE ADVANTAGE [facility] Care Teams Blood Tester Relationship Specialty Start Date End Date Verna Sharpe MD [address] [place] [phone] PCP - General Family Medicine 11/05/21
--- OUTSIDE RECORDS SUMMARY | 2025-06-30 14:51 | XMS_ITS | Encounter Summary ---
Author Organization [employer] Address [address] [place] [address] 7 [place] [address] Care Team Providers Care Plastics Factory Worker Name Role Phone Verna Sharpe MD Primary Care Provider [phone] Reason for Visit * Reason Onset Date Comments Med Refill 12/05/2024 Encounter Details Date Type Department Care Team ([facility] st Contact Info) Description 12/05/2024 Refill [facility] CHC MED & PEDS [address] [place] [address] Verna Sharpe MD [address] [place] [address] Lumbar radiculopathy Social History Tobacco Use Types [...] [facility] [address] [place] [address] Lucille Rutledge RN [address] [place] [address] documented as of this encounter Visit Diagnoses Diagnosis Lumbar radiculopathy Thoracic or lumbosacral neuritis or radiculitis, unspecified documented in this encounter Additional Health Concerns Assessment Noted Time PHQ-9 Depression Total Score: 7 10/07/20 24 1:49 PM EST documented as of this encounter Care Teams Plastics Factory Worker Relationship Specialty Start Date End Date Verna Sharpe MD [address] [place] [address] PCP - General Family Medicine 11/05/21 documented as of this encounter
--- OUTSIDE RECORDS SUMMARY | 2025-06-30 14:51 | XMS_ITS | Encounter Summary ---
Author Organization [employer] Address [address] [place] [address] Care Team Providers Care Railroad Baggage Porter Name Role Phone Verna Sharpe MD Primary Care Provider Encounter Details Date Type Department Care Team ([facility] st Contact Info) Description 08/24/2024 Telephone [facility] MEDICINE [address] [place] [address] Verna Sharpe MD [address] [place] [address] Social History Tobacco Use Types Packs/Day Years [...] Description 07/13/2025 9:00 AM EDT Clinical Support [facility] CHC MED & PEDS [address] [place] [address] Lucille Rutledge, RN [address] [place] [address] documented as of this encounter Visit Diagnoses Not on filedocumented in this encounter Additional Health Concerns Assessment Noted Time PHQ-9 Depression Total Score: 11 024 1:55 PM EST documented as of this encounter Care Teams Railroad Baggage Porter Relationship Specialty Start Date End Date Verna Sharpe MD [address] [place] [address] PCP - General Family Medicine 11/05/21 documented as of this encounter
--- OUTSIDE RECORDS SUMMARY | 2025-06-30 14:51 | XMS_ITS | Encounter Summary ---
Author Organization [employer] Address [address] [place] [address] Care Team Providers Care Orthopedics Nurse Name Role Phone Verna Sharpe MD Primary Care Provider [phone] Reason for Visit * Reason Onset Date Comments Med Refill 01/12/2025 Encounter Details Date Type Department Care Team ([facility] st Contact Info) Description 01/12/2025 Telephone [facility] MEDICINE [address] [place] [address] Verna Sharpe MD [address] [place] [address] Med Refill Social History Tobacco Use Types [...] * Telephone Encounter - Kaylen Romeo - 01/12/2025 10:34 AM EDT TC from pt requesting medication refill. Medications needing refill : gabapentin (Neurontin) 800 MG tablet To be sent to: [facility]/pharmacy #[id number] - [place], [place] - [address] [place] [address] AT [address] OF [facility] documented in this encounter Plan of Treatment Upcoming Encounters Date Type Department Care Team (Late st Contact Info) Description 07/13/2025 9:00 AM EDT Clinical Support [facility] MED & PEDS [address] [place] [address] Lucille Rutledge, TOSIN [address] [place] [address] documented as of this encounter Visit Diagnoses Not on filedocumented in this encounter Additional Health Concerns Assessment Noted Time PHQ-9 Depression Total Score: 7 10/07/20 24 1:49 PM EST documented as of this encounter Care Teams Orthopedics Nurse Relationship Specialty Start Date End Date Verna Sharpe MD [address] [place] [address] PCP - General Family Medicine 11/05/21 documented as of this encounter
--- OUTSIDE RECORDS SUMMARY | 2025-06-30 14:51 | XMS_ITS | Encounter Summary ---
Author Organization [employer] Address [address] [place] [address] [address] [place] [address] Care Team Providers Care Cognos Report Developer Name Role Phone Verna Sharpe MD Primary Care Provider [phone] Reason for Visit * Reason Onset Date Comments Med Refill 10/04/2024 Encounter Details Date Type Department Care Team ([facility] st Contact Info) Description 10/04/[address] [facility] CHC MED & PEDS [address] [place] [address] Verna Sharpe MD [address] [place] [address] Social History Tobacco Use Types Packs/Day Years [...] than half the days 10/07/2024 1:49 PM EST Jaimee Cannon MA * Feeling bad about yourself - [...] Not difficult at all 10/07/2024 1:49 PM Jaimee Rodríguez MA documented as of this encounter Plan of Treatment Upcoming Encounters Date Type Department Care Team (Late st Contact Info) Description 07/13/2025 9:00 AM EDT Clinical Support [facility] MED & PEDS [address] [place] [address] Lucille Rutledge, TOSIN [address] [place] [address] documented as of this encounter Visit Diagnoses Not on filedocumented in this encounter Additional Health Concerns Assessment Noted Time PHQ-9 Depression Total Score: 11 024 1:55 PM EST documented as of this encounter Care Teams Cognos Report Developer Relationship Specialty Start Date End Date Verna Sharpe MD [address] [place] [address] PCP - General Family Medicine 11/05/21 documented as of this encounter
--- OUTSIDE RECORDS SUMMARY | 2025-06-30 14:51 | XMS_ITS | Encounter Summary ---
Author Organization [employer] Address [address] [facility] 7t [place] [address] Care Team Providers Care [employer] Member Name Role Phone Verna Sharpe MD Primary Care Provider [phone] Reason for Visit * Reason Comments Med Refill Encounter Details Date Type Department Care Team ([facility] Contact Info) Description 12/30/2023 Refill [facility] CHC MED & PEDS [address] [place], [place] [phone] Verna Sharpe MD [address] [place] [address] Neuropathy Social History Tobacco Use Types Packs/Day Years [...] Description 07/13/2025 9:00 AM EDT Clinical Support [facility] MED & PEDS [address] [place] [address] Lucille Rutledge, TOSIN [address] [place] [address] documented as of this encounter Visit Diagnoses Diagnosis Neuropathy Mononeuritis of unspecified site documented in this encounter Additional Health Concerns Assessment Noted Time PHQ-9 Depression Total Score: 11 024 1:55 PM EST documented as of this encounter Care Teams [employer] Member Relationship Specialty Start Date End Date Verna Sharpe MD [address] [place] [address] PCP - General Family Medicine 11/05/21 documented as of this encounter
== END 2025-06-30 14:12 | disposition home or self-care (01) ==
LOC: HO.PMC 13:34
PROVIDERS: PCP Family Medicine; Referring Provider Family Medicine; Visit Provider Anesthesiology
DX: M54.51 Vertebrogenic low back pain (principal); M54.16 Radiculopathy, lumbar region; M47.816 Spondylosis without myelopathy or radiculopathy, lumbar region; M51.369 Other intervertebral disc degeneration, lumbar region without mention of lumbar back pain or lower extremity pain; G89.4 Chronic pain syndrome; M96.1 Postlaminectomy syndrome, not elsewhere classified
CPT/HCPCS: 99204

== ENCOUNTER → 2025-10-17 13:41 | Outpatient (BNV) | payer OTHER, SELFPAY | PROVIDERS: PCP Family Medicine; Visit Provider Radiology Diagnostic Radiology | DX: M47.26 Other spondylosis with radiculopathy, lumbar region (principal); M96.1 Postlaminectomy syndrome, not elsewhere classified; M51.369 Other intervertebral disc degeneration, lumbar region without mention of lumbar back pain or lower extremity pain | CPT/HCPCS: 72158 ==

== ENCOUNTER 2025-10-17 13:43 | Outpatient (REF) | payer OTHER, SELFPAY ==
--- OUTSIDE RECORDS SUMMARY | 2025-10-14 10:00 | XMS_ITS | Encounter Summary ---
Author Organization [employer] Address [address] [facility] [address] [place] [address] Care Team Providers Care Staple Cutter Name Role Phone Verna Sharpe MD Primary Care Provider [phone] Encounter Details Date Type Department Care Team ([facility] Contact Info) Description 10/14/2025 10:00 AM EST Office Visit [facility]S [address] [place], [place] [id number] Verna Sharpe MD [address] [place] [address] Type 2 diabetes mellitus without complication, without long-term current use of insulin (HCC) (Primary Dx) Social History Tobacco Use Types [...] Sign Reading Time Taken Comments Blood Pressure 128/78 10/14/2025 10:18 AM EST Pulse 82 10/14/2025 10:18 AM EST Temperature 36.8 C (98.2 F) 10/14/2025 10:18 AM EST Respiratory Rate 20 10/14/2025 10:18 AM EST Oxygen Saturation 98% 10/14/2025 10:18 AM EST Inhaled Oxygen Concentration - - Weight 153 kg (336 lb 12.8 oz) 10/14/2025 10:18 AM EST Height 179 cm (5' 10.47 ) 10/14/2025 10:18 AM ES T Body Mass Index 47.68 10/14/2025 10:18 AM EST documented in this encounter Plan of Treatment Upcoming Encounters Date Type Department Care Team ([facility] st Contact Info) Description 11/03/2025 1:30 PM EST Office Visit [facility]S [address] [place] [address] Verna Sharpe MD [address] [place] [address] 11/21/2025 9:30 AM EST Telemedicine [facility] [address] [place] [address] Lucille Rutledge RN [address] [place] [id number] Scheduled Orders Name Type Priority Associated Diagnoses Orde r Schedule CBC auto differential Lab Routine Type 2 diabetes mellitus without complication, without long-term current use of insulin (HCC) Expected: 10/14/2025 (Approximate), Expires: 10/14/2026 Comprehensive Metabolic Panel Lab Routine Type 2 diabetes mellitus without complication, without long-term current use of insulin (HCC) Expected: 10/14/2025 (Approximate), Expires: 10/14/2026 Magnesium Lab Routine Type 2 diabetes mellitus without complication, without long-term current use of insulin (HCC) Expected: 10/14/2025, Expires: 10/14/2026 documented as of this encounter Goals Goal Patient Goal Type Associated Problems Recent Progress Patient-Stated? Author Help patients manage their type 2 diabetes Care Plan Help patients manage their type 2 diabetes No Charlie Huizar Weekly blood pressure task Care Plan Weekly blood pressure task No Charlie Huizar Help patients manage their type 2 diabetes Care Plan Help patients manage their type 2 diabetes No Charlie Huizar Patient has chronic kidney disease Care Plan Patient has chronic kidney disease No Charlie Huizar Weekly blood pressure task Care Plan Weekly blood pressure task No Charlie Huizar Patient has chronic kidney disease Care Plan Patient has chronic kidney disease No Charlie Huizar Weekly blood pressure task Care Plan Weekly blood pressure task No Ofelia Nelson RN Weekly blood pressure task Care Plan Weekly blood pressure task No Ofelia Nelson RN Patient has chronic kidney disease Care Plan Patient has chronic kidney disease No Ofelia Nelson RN Patient has chronic kidney disease Care Plan Patient has chronic kidney disease No Ofelia Nelson RN Weekly blood pressure task Care Plan Weekly blood pressure task No Lucille Rutledge RN Weekly blood pressure task Care Plan Weekly blood pressure task No Lucille Rutledge RN Patient has chronic kidney disease Care Plan Patient has chronic kidney disease No Lucille Rutledge RN Patient has chronic kidney disease Care Plan Patient has chronic kidney disease No Lucille Rutledge RN Weekly blood pressure task Care Plan Weekly blood pressure task No Lucille Rutledge RN Weekly blood pressure task Care Plan Weekly blood pressure task No uLcille Rutledge RN Patient has chronic kidney disease Care Plan Patient has chronic kidney disease No Lucille Rutledge RN Patient has chronic kidney disease Care Plan Patient has chronic kidney disease No Lucille Rutledge RN Weekly blood pressure task Care Plan Weekly blood pressure task No Salma Vizcaino SC Weekly blood pressure task Care Plan Weekly blood pressure task No Salma Vizcaino SC Patient has chronic kidney disease Care Plan Patient has chronic kidney disease No Salma Vizcaino SC Patient has chronic kidney disease Care Plan Patient has chronic kidney disease No Salma Vizcaino SC Weekly blood pressure task Care Plan Weekly blood pressure task No Verna Sharpe MD Weekly blood pressure task Care Plan Weekly blood pressure task No Verna Sharpe MD Patient has chronic kidney disease Care Plan Patient has chronic kidney disease No Verna Sharpe MD Patient has chronic kidney disease Care Plan Patient has chronic kidney disease No Verna Sharpe MD Weekly blood pressure task Care Plan Weekly blood pressure task No Hernandez, Nehal, MOLD ENGRAVER Weekly blood pressure task Care Plan Weekly blood pressure task No Hernandez, Nehal, MOLD ENGRAVER Patient has chronic kidney disease Care Plan Patient has chronic kidney disease No Hernandez, Nehal, MOLD ENGRAVER Patient has chronic kidney disease Care Plan Patient has chronic kidney disease No Hernandez, Nehal, MOLD ENGRAVER Weekly blood pressure task Care Plan Weekly blood pressure task No Tanya Copeland RN Weekly blood pressure task Care Plan Weekly blood pressure task No Tanya Copeland RN Patient has chronic kidney disease Care Plan Patient has chronic kidney disease No Tanya Copeland RN Patient has chronic kidney disease Care Plan Patient has chronic kidney disease No Tanya Copeland RN Weekly blood pressure task Care Plan Weekly blood pressure task No Tanya Copeland RN Weekly blood pressure task Care Plan Weekly blood pressure task No Tanya Copeland RN Patient has chronic kidney disease Care Plan Patient has chronic kidney disease No Tanya Copeland RN Patient has chronic kidney disease Care Plan Patient has chronic kidney disease No Tanya Copeland RN Weekly blood pressure task Care Plan Weekly blood pressure task No Tanya Copeland RN Weekly blood pressure task Care Plan Weekly blood pressure task No Tanya Copeland RN Patient has chronic kidney disease Care Plan Patient has chronic kidney disease No Tanya Copeland RN Patient has chronic kidney disease Care Plan Patient has chronic kidney disease No Tanya Copeland RN Weekly blood pressure task Care Plan Weekly blood pressure task No Verna Sharpe MD Weekly blood pressure task Care Plan Weekly blood pressure task No Verna Sharpe MD Patient has chronic kidney disease Care Plan Patient has chronic kidney disease No Verna Sharpe MD Patient has chronic kidney disease Care Plan Patient has chronic kidney disease No Verna Sharpe MD Weekly blood pressure task Care Plan Weekly blood pressure task No Ofelia Nelson RN Weekly blood pressure task Care Plan Weekly blood pressure task No Ofelia Nelson RN Patient has chronic kidney disease Care Plan Patient has chronic kidney disease No Ofelia Nelson RN Patient has chronic kidney disease Care Plan Patient has chronic kidney disease No Ofelia Nelson RN Weekly blood pressure task Care Plan Weekly blood pressure task No Jaimee Stokes SC Weekly blood pressure task Care Plan Weekly blood pressure task No Jaimee Stokes SC Patient has chronic kidney disease Care Plan Patient has chronic kidney disease No Jaimee Stokes SC Patient has chronic kidney disease Care Plan Patient has chronic kidney disease No Jaimee Stokes SC Weekly blood pressure task Care Plan Weekly blood pressure task No Ailyn Bobha, [place] Weekly blood pressure task Care Plan Weekly blood pressure task No StanColon Keyanna, [place] Patient has chronic kidney disease Care Plan Patient has chronic kidney disease No Velasquez-Colon Keyanna, [place] Patient has chronic kidney disease Care Plan Patient has chronic kidney disease No StanColonAilynha, [place] Weekly blood pressure task Care Plan Weekly blood pressure task No Lucille Rutledge RN Weekly blood pressure task Care Plan Weekly blood pressure task No Lucille Rutledge RN Patient has chronic kidney disease Care Plan Patient has chronic kidney disease No Lucille Rutledge RN Patient has chronic kidney disease Care Plan Patient has chronic kidney disease No Lucille Rutledge RN Weekly blood pressure task Care Plan Weekly blood pressure task No Tanya Copeland RN Weekly blood pressure task Care Plan Weekly blood pressure task No Tanya Copeland RN Patient has chronic kidney disease Care Plan Patient has chronic kidney disease No Tanya Copeland RN Patient has chronic kidney disease Care Plan Patient has chronic kidney disease No Tanya Copeland RN Weekly blood pressure task Care Plan Weekly blood pressure task No Verna Sharpe, MD Weekly blood pressure task Care Plan Weekly blood pressure task Verna Warren MD Patient has chronic kidney disease Care Plan Patient has chronic kidney disease Verna Warren MD Patient has chronic kidney disease Care Plan Patient has chronic kidney disease No Verna Sharpe MD documented as of this encounter Procedures Procedure Name Priority Date/Time Associated Diagnosis Comments POCT GLUCOSE (CPT-89503) Routine 10/14/2025 10:47 AM EST Type 2 diabetes mellitus without complication, without long-term current use of insulin (HCC) documented in this encounter Results * POCT Glucose (10/14/2025 10:47 AM EST) Glucose Blood, POC 138 60 - 200 mg/dL QC Media Lot # [id number] Lot# Expiration Date 028, Blood Capillary blood specimen / Unknown 10/14/2025 10:47 AM EST Verna Sharpe MD POINT OF CARE TEST ENTER/EDIT ORDERABLES Final Result documented in this encounter Visit Diagnoses Diagnosis Type 2 diabetes mellitus without complication, without long-term current use of insulin (HCC)- Primary documented in this encounter Additional Health Concerns Active Problems Noted Date Diagnosed Date Help patients manage their type 2 diabetes 09/12 Weekly blood pressure task 09/12/2025 Help patients manage their type 2 diabetes 09/12 Patient has chronic kidney disease 09/12/2025 Weekly blood pressure task 09/12/2025 Patient has chronic kidney disease 09/12/2025 Weekly blood pressure task 09/13/2025 Weekly blood pressure task 09/13/2025 Patient has chronic kidney disease 09/13/2025 Patient has chronic kidney disease 09/13/2025 Weekly blood pressure task 09/14/2025 Weekly blood pressure task 09/14/2025 Patient has chronic kidney disease 09/14/2025 Patient has chronic kidney disease 09/14/2025 Weekly blood pressure task 09/14/2025 Weekly blood pressure task 09/14/2025 Patient has chronic kidney disease 09/14/2025 Patient has chronic kidney disease 09/14/2025 Weekly blood pressure task 09/15/2025 Weekly blood pressure task 09/15/2025 Patient has chronic kidney disease 09/15/2025 Patient has chronic kidney disease 09/15/2025 Weekly blood pressure task 09/19/2025 Weekly blood pressure task 09/19/2025 Patient has chronic kidney disease 09/19/2025 Patient has chronic kidney disease 09/19/2025 Weekly blood pressure task 09/20/2025 Weekly blood pressure task 09/20/2025 Patient has chronic kidney disease 09/20/2025 Patient has chronic kidney disease 09/20/2025 Weekly blood pressure task 09/21/2025 Weekly blood pressure task 09/21/2025 Patient has chronic kidney disease 09/21/2025 Patient has chronic kidney disease 09/21/2025 Weekly blood pressure task 09/21/2025 Weekly blood pressure task 09/21/2025 Patient has chronic kidney disease 09/21/2025 Patient has chronic kidney disease 09/21/2025 Weekly blood pressure task 09/21/2025 Weekly blood pressure task 09/21/2025 Patient has chronic kidney disease 09/21/2025 Patient has chronic kidney disease 09/21/2025 Weekly blood pressure task 09/21/2025 Weekly blood pressure task 09/21/2025 Patient has chronic kidney disease 09/21/2025 Patient has chronic kidney disease 09/21/2025 Weekly blood pressure task 09/26/2025 Weekly blood pressure task 09/26/2025 Patient has chronic kidney disease 09/26/2025 Patient has chronic kidney disease 09/26/2025 Weekly blood pressure task 10/04/2025 Weekly blood pressure task 10/04/2025 Patient has chronic kidney disease 10/04/2025 Patient has chronic kidney disease 10/04/2025 Weekly blood pressure task 10/05/2025 Weekly blood pressure task 10/05/2025 Patient has chronic kidney disease 10/05/2025 Patient has chronic kidney disease 10/05/2025 Weekly blood pressure task 10/12/2025 Weekly blood pressure task 10/12/2025 Patient has chronic kidney disease 10/12/2025 Patient has chronic kidney disease 10/12/2025 Weekly blood pressure task 10/13/2025 Weekly blood pressure task 10/13/2025 Patient has chronic kidney disease 10/13/2025 Patient has chronic kidney disease 10/13/2025 Weekly blood pressure task 10/14/2025 Weekly blood pressure task 10/14/2025 Patient has chronic kidney disease 10/14/2025 Patient has chronic kidney disease 10/14/2025 Assessment Noted Time PHQ-9 Depression Total Score: 7 10/07/20 24 1:49 PM EST documented as of this encounter Care Teams Staple Cutter Relationship Specialty Start Date End Date Verna Sharpe MD [address] [place] [address] PCP - General Family Medicine 11/05/21 documented as of this encounter
--- NOTE | ~2025-10-17 | MR_ITS ---
EXAM: MRI lumbar spine without and with IV contrast TECHNIQUE: Multiplanar multisequence imaging was performed through the lumbar spine without and with IV contrast. INDICATION: Radiculopathy, lumbar region postlaminectomy syndrome 2020 CONTRAST: 10 mL Gadavist PRIOR: 08/24/2019 FINDINGS: 5 non-rib bearing lumbar segments are assumed for numbering purposes. If level specific intervention is planned, correlate with an x-ray to ensure concordant numbering. Again seen are Schmorl's node involving superior endplates of L2 and L3. Again seen are signal changes and coarse regulations within L1 vertebral body consistent with benign vertebral hemangioma. L5 demonstrates Modic 1 signal change along the central inferior endplate of L4. Paraspinal soft tissues and major vascular structures are unremarkable. The termination of conus medullaris is within normal limits at the level of upper L2. T12-L1: Small central extrusion minimally the thecal sac without causing spinal stenosis or foraminal narrowing. Unchanged. L1-L2: There is subtle anterolisthesis. There is minimal disc bulge. There is mild facet arthropathy. There is no spinal stenosis or foraminal narrowing. Unchanged. L2-L3: Again seen is circumferential broad-based disc bulge and mild facet arthropathy not resulting in spinal stenosis or foraminal narrowing. L3-L4: There is no disc bulge or herniation. There is no spinal stenosis. There is mild to moderate facet arthropathy resulting in mild bilateral foraminal narrowing, left greater than right, increased since the prior. L4-L5: There is no disc bulge or herniation. There is no spinal stenosis. There is moderate facet arthropathy with questionable bilateral neural foraminal narrowing that is similar to the prior. There is low level edema and hyperenhancement around the facets. L5-S1: There is mild circumferential broad-based disc bulge with new small left subarticular zone focal protrusion and small endplate osteophytes. There is mild facet arthropathy. There is no spinal stenosis. There is minimal left subarticular zone narrowing and mild left foraminal narrowing. MR/MR lumbar spine wo/w con IMPRESSION: Inferior L4 demonstrates probable Modic 1 signal change or could be iatrogenic. However, there is minimal degenerative change at this level and no similar finding on the prior. Metastatic disease/neoplasm is not entirely ruled out. Consider CT lumbar spine without contrast to evaluate for lytic or sclerotic changes. Message Read by Dr. Noe Hathaway via [place] shortly after 5:10pm EST Degenerative disc disease and facet arthropathy is stable to mildly increased when compared to the prior. L3-L4: There is mild bilateral foraminal narrowing, left greater than right, increased since the prior. L4-5: There is mild edema and hyperenhancement and soft tissues around the left greater than right facets that could be related to mild synovitis or iatrogenic. L5-S1: There is minimal left subarticular zone narrowing and mild left foraminal narrowing. Electronically signed by: Holden Ochoa MD 10/17/2025 05:22 PM EST
--- OUTSIDE RECORDS SUMMARY | 2025-10-17 17:08 | XMS_ITS | Encounter Summary ---
Author Organization [employer] Address [address] [facility] [address] [place] [address] Care Team Providers Care Grain Elevator Operator Name Role Phone Verna Sharpe MD Primary Care Provider [phone] Reason for Visit * Reason Onset Date Comments Med Refill 06/16/2025 Encounter Details Date Type Department Care Team ([facility] st Contact Info) Description 06/16/2025 Refill [facility] MED & PEDS [address] [place] [address] Verna Sharpe MD [address] [place] [address] Type 2 diabetes mellitus without complication, without long-term current use of insulin (CMS/[facility]); Class 3 severe obesity due [...] the past 12 months, has t he [email or web address], gas, oil or water company threatened to [...] Care Team ([facility] st Contact Info) Description 11/03/2025 1:30 PM EST Office Visit [facility] MED & PEDS [address] [place] [address] Verna Sharpe MD [address] [place] [address] 11/21/2025 9:30 AM EST Telemedicine [facility] MED & PEDS [address] [place] [address] Lucille Rutledge RN [address] [place] [address] documented as of this encounter Visit Diagnoses Diagnosis Type 2 diabetes mellitus without complication, without long-term current use of insulin ([facility]) Class 3 severe obesity due to excess calories with serious comorbidity and body mass index (BMI) of 45.0 to 49.9 in adult (HCC) Obstructive sleep apnea syndrome Obstructive sleep apnea (adult) (pediatric) documented in this encounter Additional Health Concerns Assessment Noted Time PHQ-9 Depression Total Score: 7 10/07/20 24 1:49 PM EST documented as of this encounter Care Teams Grain Elevator Operator Relationship Specialty Start Date End Date Verna Sharpe MD [address] [place] [address] PCP - General Family Medicine 11/05/21 documented as of this encounter
--- OUTSIDE RECORDS SUMMARY | 2025-10-17 17:08 | XMS_ITS | Encounter Summary ---
Author Organization [employer] Address [address] [facility] [address] [place] [address] Care Team Providers Care Quantity Surveyor Name Role Phone Verna Sharpe MD Primary Care Provider [phone] Reason for Visit * Reason Comments Med Refill Encounter Details Date Type Department Care Team ([facility] Contact Info) Description 04/28/2025 Refill [facility] MED & PEDS [address] [place], [place] [id number] Verna Sharpe MD [address] [place] [address] Hypertension, unspecified type Social History Tobacco Use [...] Description 11/03/2025 1:30 PM EST Office Visit [facility] MED & PEDS [address] [place] [address] Verna Sharpe MD [address] [place] [address] 11/21/2025 9:30 AM EST Telemedicine [facility] MED & PEDS [address] [place] [address] Lucille Rutledge, TOSIN [address] [place] [address] documented as of this encounter Visit Diagnoses Diagnosis Hypertension, unspecified type documented in this encounter Additional Health Concerns Assessment Noted Time PHQ-9 Depression Total Score: 7 10/07/20 24 1:49 PM EST documented as of this encounter Care Teams Quantity Surveyor Relationship Specialty Start Date End Date Verna Sharpe MD [address] [place] [address] PCP - General Family Medicine 11/05/21 documented as of this encounter
--- OUTSIDE RECORDS SUMMARY | 2025-10-17 17:08 | XMS_ITS | Encounter Summary ---
Author Organization [employer] Address [address] [facility] [address] [place] [address] Care Team Providers Care Cylinder Steamer Name Role Phone Verna Sharpe MD Primary Care Provider [phone] Reason for Visit * Reason Onset Date Comments Med Refill 06/08/2025 Encounter Details Date Type Department Care Team ([facility] st Contact Info) Description 06/08/2025 Refill [facility] MED [facility] PEDS [address] [place] [address] Verna Sharpe MD [address] [place] [address] Type 2 diabetes mellitus without complication, without long-term current use of insulin (CMS/[facility]); Class 3 severe obesity due [...] the past 12 months, has t he [employer], gas, oil or water company threatened to [...] [facility] [address] [place] [address] Verna Sharpe MD [address] [place] [address] 11/21/2025 9:30 AM EST Telemedicine [facility] MED & PEDS [address] [place] [address] Lucille Rutledge RN [address] [place] [address] documented as of this encounter Visit Diagnoses Diagnosis Type 2 diabetes mellitus without complication, without long-term current use of insulin ([facility]) Class 3 severe obesity due to excess calories with serious comorbidity and body mass index (BMI) of 45.0 to 49.9 in adult (HCC) Obstructive sleep apnea syndrome Obstructive sleep apnea (adult) (pediatric) documented in this encounter Additional Health Concerns Assessment Noted Time PHQ-9 Depression Total Score: 7 10/07/20 24 1:49 PM EST documented as of this encounter Care Teams Cylinder Steamer Relationship Specialty Start Date End Date Verna Sharpe MD [address] [place] [address] PCP - General Family Medicine 11/05/21 documented as of this encounter
--- OUTSIDE RECORDS SUMMARY | 2025-10-17 17:08 | XMS_ITS | Encounter Summary ---
Author Organization [employer] Address [address] [facility] 7[address] [place] [address] Care Team Providers Care Certified Flex Endoscope Reprocessor Name Role Phone Verna Sharpe MD Primary Care Provider [phone] Reason for Visit * Reason Onset Date Comments Med Refill 06/29/2025 Encounter Details Date Type Department Care Team ([facility] st Contact Info) Description 06/29/2025 Refill [facility] MED [facility] PEDS [address] [place] [address] Verna Sharpe MD [address] [place] [address] Lumbar radiculopathy Social History Tobacco Use Types [...] 1:30 PM EST Office Visit [facility] MED & PEDS [address] [place] [address] Verna Sharpe MD [address] [place] [address] 11/21/2025 9:30 AM EST Telemedicine [facility] MED & PEDS [address] [place] [address] Lucille Rutledge, RN [address] [place] [address] documented as of this encounter Visit Diagnoses Diagnosis Lumbar radiculopathy Thoracic or lumbosacral neuritis or radiculitis, unspecified documented in this encounter Additional Health Concerns Assessment Noted Time PHQ-9 Depression Total Score: 7 10/07/20 24 1:49 PM EST documented as of this encounter Care Teams Certified Flex Endoscope Reprocessor Relationship Specialty Start Date End Date Verna Sharpe MD [address] [place] [address] PCP - General Family Medicine 11/05/21 documented as of this encounter
--- OUTSIDE RECORDS SUMMARY | 2025-10-17 17:08 | XMS_ITS | Encounter Summary ---
Author Organization [employer] Address [address] [facility] [facility] [address] [place] [address] Care Team Providers Care Flue Blower Name Role Phone Verna Sharpe MD Primary Care Provider [phone] Reason for Visit * Reason Onset Date Comments Med Refill 06/05/2025 Encounter Details Date Type Department Care Team ([facility] st Contact Info) Description 06/05/2025 Refill [facility] & PEDS [address] [place] [address] Verna Sharpe MD [address] [place] [address] Type 2 diabetes mellitus without complication, without long-term current use of insulin (CMS/[facility]); Class 3 severe obesity due [...] the past 12 months, has t he [employer], gas, oil or water company threatened to [...] Description 11/03/2025 1:30 PM EST Office Visit [facility] [address] [place] [address] Verna Sharpe MD [address] [place] [address] 11/21/2025 9:30 AM EST Telemedicine [facility] [address] [place] [address] Lucille Rutledge RN [address] [place] [address] documented as of this encounter Visit Diagnoses Diagnosis Type 2 diabetes mellitus without complication, without long-term current use of insulin ([facility]) Class 3 severe obesity due to excess calories with serious comorbidity and body mass index (BMI) of 45.0 to 49.9 in adult (HCC) Obstructive sleep apnea syndrome Obstructive sleep apnea (adult) (pediatric) documented in this encounter Additional Health Concerns Assessment Noted Time PHQ-9 Depression Total Score: 7 10/07/20 24 1:49 PM EST documented as of this encounter Care Teams Flue Blower Relationship Specialty Start Date End Date Verna Sharpe MD [address] [place] [address] PCP - General Family Medicine 11/05/21 documented as of this encounter
--- OUTSIDE RECORDS SUMMARY | 2025-10-17 17:08 | XMS_ITS | Encounter Summary ---
Author Organization [employer] Address [address] [facility] 7t [place] [address] Care Team Providers Care Telephone Operator Receptionist Name Role Phone Verna Sharpe MD Primary Care Provider Reason for Visit * Reason Onset Date Comments Med Refill 06/29/2025 Encounter Details Date Type Department Care Team ([facility] st Contact Info) Description 06/29/2025 Refill [facility] MED & PEDS [address] [place] [address] Verna Sharpe MD [address] [place] [address] Lumbar radiculopathy Social History Tobacco Use Types [...] Description 11/03/2025 1:30 PM EST Office Visit [facility] MED & PEDS [address] [place] [address] Verna Sharpe MD [address] [place] [address] 11/21/2025 9:30 AM EST Telemedicine [facility] MED [facility] PED[facility] [address] [place] [address] Lucille Rutledge, RN [address] [place] [address] documented as of this encounter Visit Diagnoses Diagnosis Lumbar radiculopathy Thoracic or lumbosacral neuritis or radiculitis, unspecified documented in this encounter Additional Health Concerns Assessment Noted Time PHQ-9 Depression Total Score: 7 10/07/20 24 1:49 PM EST documented as of this encounter Care Teams Telephone Operator Receptionist Relationship Specialty Start Date End Date Verna Sharpe MD [address] [place] [address] PCP - General Family Medicine 11/05/21 documented as of this encounter
--- OUTSIDE RECORDS SUMMARY | 2025-10-17 17:08 | XMS_ITS | Encounter Summary ---
Author Organization [employer] Address [address] 7t [place] [address] Care Team Providers Care Wetlands Technician Name Role Phone Verna Sharpe MD Primary Care Provider [phone] Reason for Visit * Reason Onset Date Comments Med Refill 06/11/2025 Encounter Details Date Type Department Care Team ([facility] st Contact Info) Description 06/11/2025 Refill [facility] CHC MED & PEDS [address] [place] [address] Verna Sharpe MD 505 [place] [address] Type 2 diabetes mellitus without complication, without long-term current use of insulin (CMS/[facility]); Class 3 severe obesity due [...] the past 12 months, has t he [employer], gas, oil or water company threatened to [...] 1:30 PM EST Office Visit [facility] MED & PEDS [address] [place] [address] Verna Sharpe MD 505 [place] [address] 11/21/2025 9:30 AM EST Telemedicine [facility] MED & PEDS [address] [place] [address] Lucille Rutledge RN 505 [place] [address] documented as of this encounter Visit Diagnoses Diagnosis Type 2 diabetes mellitus without complication, without long-term current use of insulin ([facility]) Class 3 severe obesity due to excess calories with serious comorbidity and body mass index (BMI) of 45.0 to 49.9 in adult (HCC) Obstructive sleep apnea syndrome Obstructive sleep apnea (adult) (pediatric) documented in this encounter Additional Health Concerns Assessment Noted Time PHQ-9 Depression Total Score: 7 10/07/20 24 1:49 PM EST documented as of this encounter Care Teams Wetlands Technician Relationship Specialty Start Date End Date Verna Sharpe MD [address] [place] [address] PCP - General Family Medicine 11/05/21 documented as of this encounter
--- OUTSIDE RECORDS SUMMARY | 2025-10-17 17:09 | XMS_ITS | Encounter Summary ---
Author Organization [employer] Address [address] 7t [place] [address] Care Team Providers Care Adjunct Instructor Name Role Phone Verna Sharpe MD Primary Care Provider [phone] Reason for Visit * Reason Comments Med Refill Encounter Details Date Type Department Care Team ([facility] Contact Info) Description 07/27/2025 Refill [facility] CHC MED & PEDS [address] [place] [address] Verna Sharpe MD 505 [place] [address] Cervical radiculopathy Social History Tobacco Use Types [...] [facility] [address] [place] [address] Verna Sharpe MD 505 [place] [address] 11/21/2025 9:30 AM EST Telemedicine [facility] MED & PEDS 505 [place] [address] Lucille Rutledge, RN 505 [place] [address] documented as of this encounter Visit Diagnoses Diagnosis Cervical radiculopathy Brachial neuritis or radiculitis nos documented in this encounter Additional Health Concerns Assessment Noted Time PHQ-9 Depression Total Score: 7 10/07/20 24 1:49 PM EST documented as of this encounter Care Teams Adjunct Instructor Relationship Specialty Start Date End Date Verna Sharpe MD [address] [place] [address] PCP - General Family Medicine 11/05/21 documented as of this encounter
--- OUTSIDE RECORDS SUMMARY | 2025-10-17 17:09 | XMS_ITS | Encounter Summary ---
Author Organization [employer] Address [address] [facility] [address] [address] 7t [place] [address] Care Team Providers Care Extra Hand Name Role Phone Verna Sharpe MD Primary Care Provider [phone] Reason for Visit * Reason Onset Date Comments Med Refill 10/04/2024 Encounter Details Date Type Department Care Team ([facility] st Contact Info) Description 10/04/2024 Telephone [facility] MEDICINE [address] [place] [address] Verna Sharpe MD 505 [place] [address] Med Refill Social History Tobacco Use Types [...] 50 MG tablet To be sent to: [facility]/pharmacy #[id number] documented in this encounter Plan of Treatment Upcoming Encounters Date Type Department Care Team (Late st Contact Info) Description 11/03/2025 1:30 PM EST Office Visit [facility] MED & PEDS [address] [place] [address] Verna Sharpe MD 505 [place] [address] 11/21/2025 9:30 AM EST Telemedicine [facility] MED & PEDS 505 [place] [address] Lucille Rutledge, TOSIN 505 [place] [address] documented as of this encounter Visit Diagnoses Not on filedocumented in this encounter Additional Health Concerns Assessment Noted Time PHQ-9 Depression Total Score: 11 024 1:55 PM EST documented as of this encounter Care Teams Extra Hand Relationship Specialty Start Date End Date Verna Sharpe MD [address] [place] [address] PCP - General Family Medicine 11/05/21 documented as of this encounter
--- OUTSIDE RECORDS SUMMARY | 2025-10-17 17:09 | XMS_ITS | Encounter Summary ---
Author Organization [employer] Address [address] [facility] 7t [place] [address] Care Team Providers Care Agricultural Specialist Name Role Phone Verna Sharpe MD Primary Care Provider [phone] Reason for Visit * Reason Comments Med Refill Encounter Details Date Type Department Care Team ([facility] Contact Info) Description 04/21/[address] [facility] CHC MED & PEDS [address] [place] [address] Verna Sharpe MD 505 [place] [address] Hypertension, unspecified type Social History Tobacco Use [...] Upcoming Encounters Date Type Department Care Team ([facility] Contact Info) Description 11/03/2025 1:30 PM EST Office Visit [facility] MED & PEDS [address] [place] [address] Verna Sharpe MD [address] [place] [address] 11/21/2025 9:30 AM EST Telemedicine [facility] MED & PEDS [address] [place] [address] Lucille Rutledge, TOSIN 505 [place] [address] documented as of this encounter Visit Diagnoses Diagnosis Hypertension, unspecified type documented in this encounter Additional Health Concerns Assessment Noted Time PHQ-9 Depression Total Score: 9 10/31/19 23 1:38 PM EST documented as of this encounter Care Teams Agricultural Specialist Relationship Specialty Start Date End Date Verna Sharpe MD [address] [place] [address] PCP - General Family Medicine 11/05/21 documented as of this encounter
--- OUTSIDE RECORDS SUMMARY | 2025-10-17 17:09 | XMS_ITS | Encounter Summary ---
Author Organization [employer] Address [address] 7t [place] [address] Care Team Providers Care Iron Worker Foreman Name Role Phone Verna Sharpe MD Primary Care Provider [phone] Reason for Visit * Reason Onset Date Comments Med Refill 01/12/2025 Encounter Details Date Type Department Care Team ([facility] st Contact Info) Description 01/12/2025 Telephone [facility] MEDICINE 230 [place] [address] Verna Sharpe MD 505 [place] [address] Med Refill Social History Tobacco Use Types [...] 800 MG tablet To be sent to: [facility]/pharmacy #[id number] - [place], [place] - [address] [place], [place] [address]Chris [address] documented in this encounter Plan of Treatment Upcoming Encounters Date Type Department Care Team (Late st Contact Info) Description 11/03/2025 1:30 PM EST Office Visit [facility] MED & PEDS 505 [place] [address] Verna Sharpe MD 505 [place] [address] 11/21/2025 9:30 AM EST Telemedicine [facility] MED & PEDS 505 [place] [address] Lucille Rutledge RN 505 [place] [address] documented as of this encounter Visit Diagnoses Not on filedocumented in this encounter Additional Health Concerns Assessment Noted Time PHQ-9 Depression Total Score: 7 10/07/20 24 1:49 PM EST documented as of this encounter Care Teams Iron Worker Foreman Relationship Specialty Start Date End Date Verna Sharpe MD 230 [place] [address] PCP - General Family Medicine 11/05/21 documented as of this encounter
--- OUTSIDE RECORDS SUMMARY | 2025-10-17 17:09 | XMS_ITS | Encounter Summary ---
Author Organization [employer] Address [address] [facility] 7t [place] [address] Care Team Providers Care General Internist Name Role Phone Verna Sharpe MD Primary Care Provider [phone] Reason for Visit * Reason Onset Date Comments Med Refill 05/05/2025 Encounter Details Date Type Department Care Team ([facility] Contact Info) Description 05/05/[address] [facility] CHC MED & PEDS 505 [place] [address] Verna Sharpe MD 505 [place] [address] Med Refill Social History Tobacco Use Types [...] Susanne Perez - 05/17/2025 2:[address]T Good afternoon Dr. Sharpe, please sign chart note from 05/12 in order to proceed with referral. Thank you. documented in this encounter Plan of Treatment Upcoming Encounters Date Type Department Care Team (Late st Contact Info) Description 11/03/2025 1:30 PM EST Office Visit [facility] MED & PEDS 505 [place] [address] Verna Sharpe MD 505 [place] [address] 11/21/2025 9:30 AM EST Telemedicine [facility] MED & PEDS 505 [place] [address] Lucille Rutledge RN 505 [place] [address] documented as of this encounter Visit Diagnoses Diagnosis Lumbar radiculopathy Thoracic or lumbosacral neuritis or radiculitis, unspecified documented in this encounter Additional Health Concerns Assessment Noted Time PHQ-9 Depression Total Score: 7 10/07/20 24 1:49 PM EST documented as of this encounter Care Teams General Internist Relationship Specialty Start Date End Date Verna Sharpe MD 230 [place] [address] PCP - General Family Medicine 11/05/21 documented as of this encounter
--- OUTSIDE RECORDS SUMMARY | 2025-10-17 17:09 | XMS_ITS | Encounter Summary ---
Author Organization [employer] Address [address] 7t [place] [address] Care Team Providers Care Flower Stripper Name Role Phone Verna Sharpe MD Primary Care Provider [phone] Reason for Visit * Reason Onset Date Comments Med Refill 04/05/2025 Encounter Details Date Type Department Care Team ([facility] st Contact Info) Description 04/05/2025 Telephone [facility] MEDICINE [address] [place] [address] Verna Sharpe MD 505 [place] [address] Med Refill Social History Tobacco Use Types [...] 50 MG tablet To be sent to: [facility]/pharmacy #[id number] - [place], [place] - [address] [facility] [address] documented in this encounter Plan of Treatment Upcoming Encounters Date Type Department Care Team (Late st Contact Info) Description 11/03/2025 1:30 PM EST Office Visit [facility] MED & PEDS 505 [place] [address] Verna Sharpe MD 505 [place] [address] 11/21/2025 9:30 AM EST Telemedicine [facility] MED & PEDS 505 [place] [address] Lucille Rutledge RN 505 [place] [address] documented as of this encounter Visit Diagnoses Not on filedocumented in this encounter Additional Health Concerns Assessment Noted Time PHQ-9 Depression Total Score: 7 10/07/20 24 1:49 PM EST documented as of this encounter Care Teams Flower Stripper Relationship Specialty Start Date End Date Verna Sharpe MD 230 [place] [address] PCP - General Family Medicine 11/05/21 documented as of this encounter
--- OUTSIDE RECORDS SUMMARY | 2025-10-17 17:09 | XMS_ITS | Encounter Summary ---
Author Organization [employer] Address [address] [facility] 7t [place] [address] Care Team Providers Care Custodial Foreman Name Role Phone Verna Sharpe MD Primary Care Provider [phone] Encounter Details Date Type Department Care Team (Late Contact Info) Description 10/14/2022 Orders Only [facility] MED & PEDS [address] [place] [address] Verna Sharpe MD 505 [place] [address] Vitamin D deficiency (Primary Dx) Social History [...] Department Care Team (Late Contact Info) Description 11/03/2025 1:30 PM EST Office Visit [facility] MED & PEDS 505 [place] [address] Verna Sharpe MD 505 [place] [address] 11/21/2025 9:30 AM EST Telemedicine [facility] MED & PEDS 505 [place] [address] Lucille Rutledge, TOSIN 505 [place] [address] documented as of this encounter Visit Diagnoses Diagnosis Vitamin D deficiency- Primary documented in this encounter Care Teams Custodial Foreman Relationship Specialty Start Date End Date Verna Sharpe MD 230 [place] [address] PCP - General Family Medicine 11/05/21 documented as of this encounter
--- OUTSIDE RECORDS SUMMARY | 2025-10-17 17:09 | XMS_ITS | Encounter Summary ---
Author Organization [employer] Address [address] [facility] 7t [place] [address] Care Team Providers Care Lead Care Manager Name Role Phone Verna Sharpe MD Primary Care Provider [phone] Encounter Details Date Type Department Care Team ([facility] st Contact Info) Description 08/05/2025 Orders Only [facility] [address] [place] [address] Provider, MD Juan Manuel Social History Tobacco Use Types Packs/Day Years [...] Description 11/03/2025 1:30 PM EST Office Visit [facility] MED & PEDS 505 [place] [address] Verna Sharpe MD 505 [place] [address] 11/21/2025 9:30 AM EST Telemedicine [facility] MED & PEDS 505 [place] [address] Lucille Rutledge, TOSIN 505 [place], [place] [address] documented as of this encounter Procedures Procedure Name Priority Date/Time Associated Diagnosis Comments XR CHEST 2 VIEWS Routine 08/05/2025 3:25 PM EDT documented in this encounter Results * XR Chest 2 Views (08/05/2025 3:25 PM EDT) Anatomical Region Laterality Modality Chest Radiographic Mehreen ging us Historical Provider MD MOSLEY XR PROCEDURES Final R esult documented in this encounter Visit Diagnoses Not on filedocumented in this encounter Additional Health Concerns Assessment Noted Time PHQ-9 Depression Total Score: 7 10/07/20 24 1:49 PM EST documented as of this encounter Care Teams Lead Care Manager Relationship Specialty Start Date End Date Verna Sharpe MD [address] [place] [address] PCP - General Family Medicine 11/05/21 documented as of this encounter
--- OUTSIDE RECORDS SUMMARY | 2025-10-17 17:09 | XMS_ITS | Encounter Summary ---
Author Organization [employer] Address [address] [facility] 7t [place] [address] Care Team Providers Care Scaffold Setter Name Role Phone Verna Sharpe MD Primary Care Provider [phone] Reason for Visit * Reason Onset Date Comments Med Refill 03/05/2025 Encounter Details Date Type Department Care Team ([facility] st Contact Info) Description 03/05/2025 Refill [facility] CHC MED & PEDS [address] [place] [address] Verna Sharpe MD 505 [place] [address] Lumbar radiculopathy Social History Tobacco Use Types [...] 11/03/2025 1:30 PM EST Office Visit [facility] MED & PEDS [address] [place] [address] Verna Sharpe MD 505 [place] [address] 11/21/2025 9:30 AM EST Telemedicine [facility] MED & PEDS 505 [place] [address] Lucille Rutledge, TOSIN 505 [place] [address] documented as of this encounter Visit Diagnoses Diagnosis Lumbar radiculopathy Thoracic or lumbosacral neuritis or radiculitis, unspecified documented in this encounter Additional Health Concerns Assessment Noted Time PHQ-9 Depression Total Score: 7 10/07/20 24 1:49 PM EST documented as of this encounter Care Teams Scaffold Setter Relationship Specialty Start Date End Date Verna Sharpe MD 230 [place] [address] PCP - General Family Medicine 11/05/21 documented as of this encounter
--- OUTSIDE RECORDS SUMMARY | 2025-10-17 17:09 | XMS_ITS | Encounter Summary ---
Author Organization [employer] Address [address] [facility] [address] 7t [place] [address] Care Team Providers Care Appian Bpm Developer Name Role Phone Verna Sharpe MD Primary Care Provider [phone] Reason for Visit * Reason Comments Med Refill Encounter Details Date Type Department Care Team ([facility] Contact Info) Description 10/11/2025 Refill [facility] CHC MED & PEDS [address] [place] [address] Verna Sharpe MD 505 [place] [address] Cervical radiculopathy Social History Tobacco Use Types [...] Description 11/03/2025 1:30 PM EST Office Visit [facility] MED & PEDS [address] [place] [address] Verna Sharpe MD 505 [place] [address] 11/21/2025 9:30 AM EST Telemedicine [facility] MED & PEDS [address] [place] [address] Lucille Rutledge RN 505 [place] [address] documented as of this encounter Goals Goal [...] Plan Weekly blood pressure task No Ofelia Nelson, RN Weekly blood pressure task Care Plan Weekly blood pressure task No Ofelia Nelson RN Patient has chronic kidney disease Care Plan Patient has chronic kidney disease No Ofelia Nelson, RN Patient has chronic kidney disease Care [...] Care Plan Weekly blood pressure task No [place] Weekly blood pressure task Care Plan Weekly blood pressure task No [facility] [place] Patient has chronic kidney disease Care Plan Patient has chronic kidney disease No [facility] [place] Patient has chronic kidney disease Care Plan Patient has chronic kidney disease No [place] Weekly blood pressure task Care Plan Weekly [...] Care Plan Weekly blood pressure task No Nehal Hernandez, ROAD GANG SUPERVISOR Weekly blood pressure task Care Plan Weekly blood pressure task No Hernandez, Nehal, ROAD GANG SUPERVISOR Patient has chronic kidney disease Care Plan Patient has chronic kidney disease No Hai Hernandezga, ROAD GANG SUPERVISOR Patient has chronic kidney disease Care Plan Patient has chronic kidney disease No Hai Hernandezga, ROAD GANG SUPERVISOR Weekly blood pressure task Care Plan Weekly blood pressure task No Tanya Copeland, RN Weekly blood pressure task Care Plan Weekly blood pressure task No Tanya Copeland, RN Patient has chronic kidney disease Care [...] Patient has chronic kidney disease No Ofelia Nelson, TOSIN Patient has chronic kidney disease Care Plan Patient has chronic kidney disease No Ofelia Nelson, TOSIN Weekly blood pressure task Care Plan Weekly blood pressure task No Jaimee Stokes [place] Weekly blood pressure task Care Plan Weekly blood pressure task No Jaimee Stokes [place] Patient has chronic kidney disease Care Plan Patient has chronic kidney disease No Jaimee Stokes [place] Patient has chronic kidney disease Care Plan Patient has chronic kidney disease No Jaimee Stokes [place] Weekly blood pressure task Care Plan Weekly blood pressure task No Keyanna Bob MA Weekly blood pressure task Care Plan Weekly blood pressure task No Keyanna Bob [place] Patient has chronic kidney disease Care Plan Patient has chronic kidney disease No Keyanna Bob [place] Patient has chronic kidney disease Care Plan Patient has chronic kidney disease Keyanna Lance MA documented as of this encounter Visit Diagnoses [...] 10/05/2025 Patient has chronic kidney disease 10/05/2025 Assessment Noted Time PHQ-9 Depression Total Score: 7 10/07/20 24 1:49 PM EST documented as of this encounter Care Teams Appian Bpm Developer Relationship Specialty Start Date End Date Verna Sharpe MD [address] [place] [address] PCP - General Family Medicine 11/05/21 documented as of this encounter
--- OUTSIDE RECORDS SUMMARY | 2025-10-17 17:09 | XMS_ITS | Encounter Summary ---
Author Organization [employer] Address [address] 7t [place] [address] Care Team Providers Care Teacher Of Family And Consumer Science Name Role Phone Verna Sharpe MD Primary Care Provider [phone] Reason for Visit * Reason Onset Date Comments Med Refill 10/04/2024 Encounter Details Date Type Department Care Team ([facility] st Contact Info) Description 10/04/2024 Refill [facility] CHC MED & PEDS [address] [place] [address] Verna Sharpe MD 505 [place] [address] Social History Tobacco Use Types Packs/Day Years [...] 11/03/2025 1:30 PM EST Office Visit [facility] MED & PEDS [address] [place] [address] Verna Sharpe MD 505 [place] [address] 11/21/2025 9:30 AM EST Telemedicine [facility] MED & PEDS [address] [place] [address] Lucille Rutledge, TOSIN 505 [place] [address] documented as of this encounter Visit Diagnoses Not on filedocumented in this encounter Additional Health Concerns Assessment Noted Time PHQ-9 Depression Total Score: 11 024 1:55 PM EST documented as of this encounter Care Teams Teacher Of Family And Consumer Science Relationship Specialty Start Date End Date Verna Sharpe MD 230 [place] [address] PCP - General Family Medicine 11/05/21 documented as of this encounter
--- OUTSIDE RECORDS SUMMARY | 2025-10-17 17:09 | XMS_ITS | Encounter Summary ---
Author Organization [employer] Address [address] [facility] [address] [facility] [address] [place] [address] Care Team Providers Care Sheet Metal Layout Mechanic Name Role Phone Verna Sharpe MD Primary Care Provider [phone] Encounter Details Date Type Department Care Team ([facility] st Contact Info) Description 08/08/2025 Orders Only [facility] CHC MED & PEDS [address] [place] [address] Provider, MD Juan Manuel Social History Tobacco [...] Description 11/03/2025 1:30 PM EST Office Visit [facility] MED & PEDS 505 [place] [address] Verna Sharpe MD 505 [place] [address] 11/21/2025 9:30 AM EST Telemedicine [facility] MED & PEDS 505 [place] [address] Lucille Rutledge RN 505 [place] [address] documented as of this encounter Procedures Procedure Name Priority Date/Time Associated Diagnosis Comments ECG 12-LEAD Routine 08/05/2025 8:44 AM EDT ECG 12-LEAD Routine 08/05/2025 8:42 AM EDT ECG 12-LEAD Routine 08/05/2025 8:38 AM EDT documented in this encounter Results * ECG 12 lead (08/05/2025 8:44 AM EDT) Historical Provider ECG ORDERABLES Final Res ult * ECG 12 lead (08/05/2025 8:42 AM EDT) Historical Provider ECG ORDERABLES Final Res ult * ECG 12 lead (08/05/2025 8:38 AM EDT) Historical Provider ECG ORDERABLES Final Res ult documented in this encounter Visit Diagnoses Not on filedocumented in this encounter Additional Health Concerns Assessment Noted Time PHQ-9 Depression Total Score: 7 10/07/20 24 1:49 PM EST documented as of this encounter Care Teams Sheet Metal Layout Mechanic Relationship Specialty Start Date End Date Verna Sharpe MD 230 [place] [address] PCP - General Family Medicine 11/05/21 documented as of this encounter
--- OUTSIDE RECORDS SUMMARY | 2025-10-17 17:09 | XMS_ITS | Encounter Summary ---
Author Organization [employer] Address [address] [facility] [address] 7[address] [place] [address] Care Team Providers Care Beater And Pulper Feeder Name Role Phone Verna Sharpe MD Primary Care Provider [phone] Encounter Details Date Type Department Care Team (Latest Contact Info) Description 10/14/2025 Travel Social History Tobacco Use Types Packs/Day Years [...] 11/03/2025 1:30 PM EST Office Visit [facility] [address] [place] [address] Verna Sharpe MD 505 [place] [address] 11/21/2025 9:30 AM EST Telemedicine [facility] [address] [place] [address] Lucille Rutledge RN 505 [place] [address] documented as of this encounter Goals Goal [...] Weekly blood pressure task No Ofelia Nelson, TOSIN Weekly blood pressure task Care Plan Weekly blood pressure task No Ofelia Nelson, TOSIN Patient has chronic [...] Weekly blood pressure task No Salma Vizcaino DC Weekly blood pressure task Care Plan Weekly blood pressure task No Salma Vizcaino DC Patient has chronic kidney disease Care Plan Patient has chronic kidney disease No Salma Vizcaino DC Patient has chronic kidney disease Care Plan Patient has chronic kidney disease No Salma Vizcaino DC Weekly blood pressure task Care Plan Weekly [...] Weekly blood pressure task No Nehal Hernandez, PROCUREMENT INTERN Weekly blood pressure task Care Plan Weekly blood pressure task No Hai Hernandezga, PROCUREMENT INTERN Patient has chronic kidney disease Care Plan Patient has chronic kidney disease No Nehal Hernandez, PROCUREMENT INTERN Patient has chronic kidney disease Care Plan Patient has chronic kidney disease No Hai Hernandezga, PROCUREMENT INTERN Weekly blood pressure task Care Plan Weekly [...] Weekly blood pressure task No Jaimee Stokes DC Patient has chronic kidney disease Care Plan Patient has chronic kidney disease No Jaimee Stokes [place] Patient has chronic kidney disease Care Plan Patient has chronic kidney disease No Jaimee Stokes [place] Weekly blood pressure task Care Plan Weekly blood pressure task No Ailyn Bobha, DC Weekly blood pressure task Care Plan Weekly blood pressure task No Ailyn Bobha, [place] Patient has chronic kidney disease Care Plan Patient has chronic kidney disease No Keyanna Bob, KENZIE Patient has chronic kidney disease Care Plan Patient has chronic kidney disease No Keyanna Bob, [place] Weekly blood pressure task Care Plan Weekly [...] Plan Weekly blood pressure task No Verna Shapre MD Weekly blood pressure task Care Plan Weekly blood pressure task No Verna Sharpe MD Patient has chronic kidney disease Care Plan Patient has chronic kidney disease No Verna Sharpe MD Patient has chronic kidney disease Care Plan Patient has chronic kidney disease No Verna Sharpe MD documented as of this encounter Visit Diagnoses Not on filedocumented in this encounter Additional Health Concerns Active [...] documented as of this encounter Care Teams Beater And Pulper Feeder Relationship Specialty Start Date End Date Verna Sharpe MD [address] [place] [address] PCP - General Family Medicine 11/05/21 documented as of this encounter
--- OUTSIDE RECORDS SUMMARY | 2025-10-17 17:09 | XMS_ITS | Encounter Summary ---
Author Organization [employer] Address [address] [facility] 7 [place] [address] Care Team Providers Care Racebook Writer Name Role Phone Verna Sharpe MD Primary Care Provider [phone] Reason for Visit * Reason Onset Date Comments Med Change Request Prior Authorization 05/04/2025 Encounter Details Date Type Department Care Team ([facility] st Contact Info) Description 05/04/2025 Refill [facility]EDS [address] [place] [address] Johnna Mclean MD [address] [place] [address] Type 2 diabetes mellitus without complication, without long-term current use of insulin (CMS/[facility]); Class 3 severe obesity due [...] the past 12 months, has t he [employer], gas, oil or water [employer] threatened to shut off services in your [...] [facility] [address] [place] [address] Verna Sharpe MD 505 [place] [address] 11/21/2025 9:30 AM EST Telemedicine [facility] [address] [place] [address] Lucille Rutledge RN 505 [place] [address] documented as of this encounter Visit Diagnoses Diagnosis Type 2 diabetes mellitus without complication, without long-term current use of insulin ([facility]) Class 3 severe obesity due to excess calories with serious comorbidity and body mass index (BMI) of 45.0 to 49.9 in adult (HCC) Obstructive sleep apnea syndrome Obstructive sleep apnea (adult) (pediatric) documented in this encounter Additional Health Concerns Assessment Noted Time PHQ-9 Depression Total Score: 7 10/07/20 24 1:49 PM EST documented as of this encounter Care Teams Racebook Writer Relationship Specialty Start Date End Date Verna Sharpe MD [address] [place] [address] PCP - General Family Medicine 11/05/21 documented as of this encounter
--- OUTSIDE RECORDS SUMMARY | 2025-10-17 17:09 | XMS_ITS | Encounter Summary ---
Author Organization [employer] Address [address] 7[address] [place] [address] Care Team Providers Care Engineering Geologist Name Role Phone Verna Sharpe MD Primary Care Provider [phone] Encounter Details Date Type Department Care Team ([facility] st Contact Info) Description 08/24/2024 Telephone [facility] MED[facility] [address] [place] [address] Verna Sharpe MD 505 [place] [address] Social History Tobacco Use Types Packs/Day Years [...] 1:30 PM EST Office Visit [facility] [address] [place] [address] Verna Sharpe MD [address] [place] [address] 11/21/2025 9:30 AM EST Telemedicine [facility] [address] [place] [address] Lucille Rutledge, RN 505 [place] [address] documented as of this encounter Visit Diagnoses Not on filedocumented in this encounter Additional Health Concerns Assessment Noted Time PHQ-9 Depression Total Score: 11 024 1:55 PM EST documented as of this encounter Care Teams Engineering Geologist Relationship Specialty Start Date End Date Verna Sharpe MD [address] [place] [address] PCP - General Family Medicine 11/05/21 documented as of this encounter
--- OUTSIDE RECORDS SUMMARY | 2025-10-17 17:09 | XMS_ITS | Encounter Summary ---
Author Organization [employer] Address [address] [facility] [facility] [place] [address] Care Team Providers Care Florist Manager Name Role Phone Verna Sharpe MD Primary Care Provider [phone] Reason for Visit * Reason Onset Date Comments Med Refill 05/24/2024 Encounter Details Date Type Department Care Team ([facility] st Contact Info) Description 05/24/2024 Telephone [facility] MED[facility]INE [address] [place] [address] Verna Sharpe MD 505 [place] [address] Med Refill Social History Tobacco Use Types [...] 50 MG tablet To be sent to: [id number] - [place], [place] - [address] [facility] [address]RT [address] A & ARMORY documented in this encounter Plan of Treatment Upcoming Encounters Date Type Department Care Team (Late st Contact Info) Description 11/03/2025 1:30 PM EST Office Visit [facility] [address] [place] [address] Verna Sharpe MD 505 [place] [address] 11/21/2025 9:30 AM EST Telemedicine [facility] [address] [place] [address] Lucille Rutledge RN 505 [place] [address] documented as of this encounter Visit Diagnoses Not on filedocumented in this encounter Additional Health Concerns Assessment Noted Time PHQ-9 Depression Total Score: 11 024 1:55 PM EST documented as of this encounter Care Teams Florist Manager Relationship Specialty Start Date End Date Verna Sharpe MD [address] [place] [address] PCP - General Family Medicine 11/05/21 documented as of this encounter
--- OUTSIDE RECORDS SUMMARY | 2025-10-17 17:09 | XMS_ITS | Encounter Summary ---
Author Organization [employer] Address [address] [facility] 7t [place] [address] Care Team Providers Care Acid Changer Name Role Phone Verna Sharpe MD Primary Care Provider [phone] Reason for Visit * Reason Onset Date Comments Med Refill 12/05/2024 Encounter Details Date Type Department Care Team ([facility] st Contact Info) Description 12/05/2024 Refill [facility] PEDS [address] [place] [address] Verna Sharpe MD [address] [place] [address] Lumbar radiculopathy Social History Tobacco Use Types [...] Description 11/03/2025 1:30 PM EST Office Visit [facility] [address] [place] [address] Verna Sharpe MD [address] [place] [address] 11/21/2025 9:30 AM EST Telemedicine [facility] [address] [place] [address] Lucille Rutledge, TOSIN 505 [place] [address] documented as of this encounter Visit Diagnoses Diagnosis Lumbar radiculopathy Thoracic or lumbosacral neuritis or radiculitis, unspecified documented in this encounter Additional Health Concerns Assessment Noted Time PHQ-9 Depression Total Score: 7 10/07/20 24 1:49 PM EST documented as of this encounter Care Teams Acid Changer Relationship Specialty Start Date End Date Verna Sharpe MD 230 [place] [address] PCP - General Family Medicine 11/05/21 documented as of this encounter
--- OUTSIDE RECORDS SUMMARY | 2025-10-17 17:09 | XMS_ITS | Encounter Summary ---
Author Organization [employer] Address [address] [facility] 7t [place] [address] Care Team Providers Care Water Resource Agent Name Role Phone Verna Sharpe MD Primary Care Provider [phone] Reason for Visit * Reason Onset Date Comments Med Refill 03/08/2025 Encounter Details Date Type Department Care Team ([facility] st Contact Info) Description 03/08/2025 Refill [facility] PEDS [address] [place] [address] Verna Sharpe MD 505 [place] [address] Lumbar radiculopathy Social History Tobacco Use Types [...] Description 11/03/2025 1:30 PM EST Office Visit [facility] [address] [place] [address] Verna Sharpe MD 505 [place] [address] 11/21/2025 9:30 AM EST Telemedicine [facility] [address] [place] [address] Lucille Rutledge, TOSIN [address] [place] [address] documented as of this encounter Visit Diagnoses Diagnosis Lumbar radiculopathy Thoracic or lumbosacral neuritis or radiculitis, unspecified documented in this encounter Additional Health Concerns Assessment Noted Time PHQ-9 Depression Total Score: 7 10/07/20 24 1:49 PM EST documented as of this encounter Care Teams Water Resource Agent Relationship Specialty Start Date End Date Verna Sharpe MD [address] [place] [address] PCP - General Family Medicine 11/05/21 documented as of this encounter
--- OUTSIDE RECORDS SUMMARY | 2025-10-17 17:09 | XMS_ITS | Encounter Summary ---
Author Organization [employer] Address [address] [facility] [address] 7[address] [place] [address] Care Team Providers Care Film Sound Coordinator Name Role Phone Verna Sharpe MD Primary Care Provider [phone] Reason for Visit * Reason Comments Med Refill Encounter Details Date Type Department Care Team ([facility] Contact Info) Description 05/03/[address] [facility] PEDS [address] [place], [place] [phone] Verna Sharpe MD 505 [place] [address] Hypertension, unspecified type Social History Tobacco Use [...] 1:30 PM EST Office Visit [facility] [address] [place] [address] Verna Sharpe MD 505 [place] [address] 11/21/2025 9:30 AM EST Telemedicine [facility] [address] [place] [address] Lucille Rutledge, TOSIN [address] [place] [address] documented as of this encounter Visit Diagnoses Diagnosis Hypertension, unspecified type documented in this encounter Additional Health Concerns Assessment Noted Time PHQ-9 Depression Total Score: 7 10/07/20 24 1:49 PM EST documented as of this encounter Care Teams Film Sound Coordinator Relationship Specialty Start Date End Date Verna Sharpe MD [address] [place] [address] PCP - General Family Medicine 11/05/21 documented as of this encounter
--- OUTSIDE RECORDS SUMMARY | 2025-10-17 17:09 | XMS_ITS | Encounter Summary ---
Author Organization [employer] Address [address] [facility] 7 [place] [address] Care Team Providers Care Production Leader Name Role Phone Verna Sharpe MD Primary Care Provider [phone] Reason for Visit * Reason Onset Date Comments Med Refill 01/31/2025 Encounter Details Date Type Department Care Team (Late st Contact Info) Description 01/31/2025 Refill [facility] MEDICINE [address] [place] [address] Johnna Mclean MD 505 [place] [address] Lumbar radiculopathy Social History Tobacco Use Types [...] Description 11/03/2025 1:30 PM EST Office Visit [facility] [address] [place] [address] Verna Sharpe MD 505 [place] [address] 11/21/2025 9:30 AM EST Telemedicine [facility] [address] [place] [address] Lucille Rutledge, TOSIN 505 [place] [address] documented as of this encounter Visit Diagnoses Diagnosis Lumbar radiculopathy Thoracic or lumbosacral neuritis or radiculitis, unspecified documented in this encounter Additional Health Concerns Assessment Noted Time PHQ-9 Depression Total Score: 7 10/07/20 24 1:49 PM EST documented as of this encounter Care Teams Production Leader Relationship Specialty Start Date End Date Verna Sharpe MD 230 [place] [address] PCP - General Family Medicine 11/05/21 documented as of this encounter
--- OUTSIDE RECORDS SUMMARY | 2025-10-17 17:09 | XMS_ITS | Encounter Summary ---
Author Organization [employer] Address [address] [facility] [address] 7t [place] [address] Care Team Providers Care Allergist/Immunologist Name Role Phone Verna Sharpe MD Primary Care Provider [phone] Reason for Visit * Reason Onset Date Comments Medication Question 12/27/2024 Encounter Details Date Type Department Care Team ([facility] Contact Info) Description 12/27/2024 Telephone [facility] MED & PEDS [address] [place] [address] Verna Sharpe MD 505 [place] [address] Medication Question Social History Tobacco Use Types [...] pt calling to inform was seen with water main pipe layer last week and requested to contact pcp office to request a weight lost injection that is covered by insurance. Please call to clarify. documented in this encounter Plan of Treatment Upcoming Encounters Date Type Department Care Team (Late st Contact Info) Description 11/03/2025 1:30 PM EST Office Visit [facility] [address] [place] [address] Verna Sharpe MD [address] [place] [address] 11/21/2025 9:30 AM EST Telemedicine [facility] [address] [place] [address] Lucille Rutledge, TOSIN 505 [place] [address] documented as of this encounter Visit Diagnoses Not on filedocumented in this encounter Additional Health Concerns Assessment Noted Time PHQ-9 Depression Total Score: 7 10/07/20 24 1:49 PM EST documented as of this encounter Care Teams Allergist/Immunologist Relationship Specialty Start Date End Date Verna Sharpe MD [address] [place] [address] PCP - General Family Medicine 11/05/21 documented as of this encounter
--- OUTSIDE RECORDS SUMMARY | 2025-10-17 17:09 | XMS_ITS | Encounter Summary ---
Author Organization [employer] Address [address] [facility] 7t [place] [address] Care Team Providers Care Town Marshal Name Role Phone Verna Sharpe MD Primary Care Provider [phone] Reason for Visit * Reason Onset Date Comments Med Refill 03/02/2025 Encounter Details Date Type Department Care Team ([facility] st Contact Info) Description 03/02/2025 Refill [facility] MED & PEDS [address] [place] [address] Verna Sharpe MD [address] [place] [address] Lumbar radiculopathy Social History Tobacco Use Types [...] Description 11/03/2025 1:30 PM EST Office Visit [facility] [address] [place] [address] Verna Sharpe MD [address] [place] [address] 11/21/2025 9:30 AM EST Telemedicine [facility] [address] [place] [address] Lucille Rutledge, TOSIN 505 [place] [address] documented as of this encounter Visit Diagnoses Diagnosis Lumbar radiculopathy Thoracic or lumbosacral neuritis or radiculitis, unspecified documented in this encounter Additional Health Concerns Assessment Noted Time PHQ-9 Depression Total Score: 7 10/07/20 24 1:49 PM EST documented as of this encounter Care Teams Town Marshal Relationship Specialty Start Date End Date Verna Sharpe MD 230 [place] [address] PCP - General Family Medicine 11/05/21 documented as of this encounter
--- OUTSIDE RECORDS SUMMARY | 2025-10-17 17:09 | XMS_ITS | Clinical Summary ---
Author Organization 175 [facility] Address [address] [place] [address] Phone Care Team Providers Care Eye Technician Name Role Phone Verna Sharpe MD Primary Care Provider [phone] Allergies No known active allergies Medications fluticasone propionate (FLONASE) 50 mcg/actuation nasal spray Administer 2 sprays into each nostril at bedtime. Active fluticasone furoate-vilante roL (BREO ELLIPTA) 100-25 mcg/dose inhaler Inhale into the lungs. Active simvastatin (ZOCOR) 20 mg tablet Take 20 mg by mouth at bedtime. Active BISACODYL MISC by Combination route. Active RANITIDINE HCL ORAL Take 300 mg by mouth at bedtime. Active cyclobenzaprine HCl (CYCLOBENZAPRIN E ORAL) Take by mouth. Activ e ketoconazole (NIZORAL) 2 % cream Apply topically 1 (one) time each day. 60 g 2 5 Active Additional Information Patient not taking.Reported on 08/05/2025 baclofen (LIORESAL) 20 mg tablet Take 1 tablet (20 mg total) by mouth 1 (one) time each day. 5 Active lansoprazole (PREVACID) [address] capsule Take 1 capsule (30 mg total) by mouth 1 (one) time each day. 5 Active traMADoL (ULTRAM) 50 mg tablet Take 1 tablet (50 mg total) by mouth 1 (one) time each day if needed for severe pain. 3 Active chlorthalidone (HYGROTON) 25 mg tablet Take 1 tablet (25 mg total) by mouth 1 (one) time each day. Active enalapril (VASOTEC) 20 mg tablet Take 1 tablet (20 mg total) by mouth daily. 3 Active gabapentin (NEURONTIN) 800 mg tablet Take 1 tablet (800 mg total) by mouth 1 (one) time each day if needed. 5 Active ibuprofen (ADVIL,MOTRIN) 600 mg tablet Take 1 tablet (600 mg total) by mouth every 8 (eight) hours if needed. for mild pain 5 Active albuterol HFA (PROAIR HFA ; PROVENTIL HFA ; VENTOLIN HFA) 90 mcg/actuation inhaler Inhale 2 puffs by mouth every 6 hours as needed. 3 Active Active Problems Problem Noted Date Diagnosed Date Class 3 severe obesity due t o excess calories with serious comorbidity and body mass index (BMI) of 45.0 to 49.9 in adult Encounters Date Type Department Care Team Description 08/05/2025 9:48 AM EDT - 08/05/2025 4:52 PM EDT Emergency [facility] Emergency [address] [place] [address] Baron Hodgson MD Chest pain, unspecified type (Primary Dx); Epistaxis Discharge Disposition: Left Against Medical Advice from Last 3 Months Surgical History Surgery Date Site/Laterality Comments HAND SURGERY PROCEDURE: FL UNLISTED PROCEDURE HANDS/FINGERS Medical History Medical History Date Comments Hypertension DX:Hypertension Obesity DX:Obesity Obstructive sleep apnea DX:Obstr uctive sleep apnea Diabetes (CMS/HCC V24, CMS/HCC V28) DX:Diabetes ([facility]) Back pain DX:Back pain Asthma DX:Asthma Family [...] Value Date Recorded Sex Assigned at Male 08/05/2025 10:17 AM EDT Legal Sex Male 3:31 PM EST Gender Identity Male 08/05/2025 10:17 AM EDT Sexual Orientation Straight 08/05/2025 10 :17 AM EDT Last Filed Vital Signs Vital Sign Reading Time Taken Comments Blood Pressure 127/95 08/05/2025 1:27 PM EDT Pulse 95 08/05/2025 1:27 PM EDT Temperature 37.1 C (98.7 F) 08/05/2025 1:27 PM EDT Respiratory Rate 18 08/05/2025 1:27 PM EDT Oxygen Saturation 96% 08/05/2025 1:27 PM EDT Inhaled Oxygen Concentration - - Weight 145 kg (320 lb) 08/05/2025 9:47 AM EDT Height 180.3 cm (5' 11 ) 08/05/2025 9:47 AM EDT Body Mass Index 44.63 08/05/2025 9:47 AM EDT Plan of Treatment Health Maintenance Due Date Last Done Comments Colorectal Cancer Screening: Colonoscopy 1975 Diabetes: Annual Foot Exam 1985 Diabetes: Annual Retina Eye Exam 1985 Hepatitis B Vaccines (1 of 3 - 19+ 3-dose series) 1994 Pneumococcal Vaccine: 50+ Years (1 of 2 - PCV) 1994 Hepatitis C Screening 09/25/2022 Medicare Annual Wellness Visit 09/25/2022 Social Influencers of Health Screening 09/25/2022 Depression Screening 10/27/2024 COVID-19 Vaccine (1 - 2024-2 6 season) 2025 Influenza Vaccine (#1) 2025 , 08/12/2019 Diabetes: Annual Urine Albumin-Creatinine Ratio (uACR) 08/05/2025 RSV Immunization Adult Patients (1 - Risk 50-74 years 1-dose series) 2025 Zoster Vaccines (1 of 2) 2025 Diabetes: Blood Sugar Contro l Test (HGBA1C) 10/22/2025 04/22/2025, 11/08/2024 Diabetes: Annual GFR (Glomerular Filtration Rate) 08/05/2026 08/05/2025 Hypertension/CHF/CAD Annual BMP Blood Test 08/05/2026 08/05/2025 Cholesterol Screening (Lipid Panel) 07/02/2029 07/02/2024 DTaP,Tdap,and [...] Name Priority Date/Time Associated Diagnosis Comments ECG ANNOTATED 08/08/2025 ECG 12-LEAD STAT 08/05/2025 1:37 PM EDT XR CHEST 2 VIEWS STAT 08/05/2025 12:0 6 PM EDT ECG 12-LEAD STAT 08/05/2025 11:27 AM EDT TROPONIN I HIGH SENSITIVITY Timed 08/05/2025 11:22 AM EDT D-DIMER STAT 08/05/2025 10:09 AM EDT ACTIVATED PARTIAL THROMBOPLASTIN TIME STAT 08/05/2025 10:09 AM EDT PROTHROMBIN TIME WITH INR STAT 08/05/2025 10:09 AM EDT CBC WITH AUTO DIFFERENTIAL STAT 08/05/2025 10:09 AM EDT B-TYPE NATRIURETIC PEPTIDE STAT 08/05/2025 10:09 AM EDT MAGNESIUM STAT 08/05/2025 10:09 AM EDT LIPASE STAT 08/05/2025 10:09 AM EDT COMPREHENSIVE METABOLIC PANEL STAT 08/05/2025 10:09 AM EDT CBC AND DIFFERENTIAL STAT 08/05/2025 10:09 AM EDT TROPONIN I HIGH SENSITIVITY Timed 08/05/2025 10:09 AM EDT [id number], RSV, FLU A AND B QUALITATIVE RT-PCR, INTERNAL LAB STAT 08/05/2025 10:09 AM EDT ECG 12-LEAD STAT 08/05/2025 9:44 AM EDT from Last 3 Months Results * ECG-Annotated (08/08/2025) us Provider Oncinthia VILLAFANA ECG ORDERABLES Final Result * 12-Lead ECG (08/05/2025 1:37 PM EDT) Only the most recent of3 resultswithin the time period is included. Ventricular Rate ECG 90 BPM GEMUSE Atrial Rate 90 BPM GEMUSE P-R Interval 196 ms GEMUSE QRS Duration 100 ms GEMUSE Q-T Interval 388 ms GEMUSE QTc 474 ms GEMUSE P Wave [place] 34 degrees GEMUSE R [place] 176 degrees GEMUSE T [place] 18 degrees GEMUSE ECG Interpretation Normal sinus rhythm Right superior axis deviation Inferior infarct (cited on or before 05-AUG-2025) Abnormal ECG When compared with ECG of 05-AUG-2025 11:27, No significant change was found Confirmed by MD BRADLY, JESSY ([id number]) on 08/06/2025 8:13:09 AM GEMUSE 08/05/2025 1:37 PM EDT 08/06/2025 8:13 AM EDT us Baron Hodgson MD ECG ORDERABLES Final Result GEMUSE * XR Chest 2 Views (08/05/2025 12:06 PM EDT) Anatomical Region Laterality Modality Body Radiographic Mehreen ging 08/05/2025 12:0 8 PM EDT Impressions 08/05/2025 12:09 PM EDT No acute findings. -------- FINAL REPORT -------- Dictated By: Osvaldo Mesa Dictated Date: 08/05/2025 12:08 ET Assigned Physician: Osvaldo Mesa Reviewed and Electronically Signed By: Osvaldo Mesa Signed Date: 08/05/2025 12:09 ET Workstation ID: [id number] Transcribed By: Self Edit Transcribed Date: 08/05/2025 12:08 ET Narrative 08/05/2025 12:09 PM EDT PROCEDURE: PA and lateral radiographs of the chest. HISTORY: chest pain. COMPARISON: None. FINDINGS: Mild degenerative changes of the spine. Lungs, pleural spaces, pulmonary vasculature, and cardiomediastinal contours are normal. Procedure Note Osvaldo Mesa MD - 08/05/2025 PROCEDURE: PA and lateral radiographs of the chest. HISTORY: chest pain. COMPARISON: None. FINDINGS: Mild degenerative changes of the spine. Lungs, pleural spaces, pulmonaryvasculature, and cardiomediastinal contours are normal. IMPRESSION: No acute findings. -------- FINAL REPORT -------- Dictated By: Osvaldo Mesa Dictated Date: 08/05/2025 12:08 ET Assigned Physician: Osvaldo Mesa Reviewed and Electronically Signed By: Osvaldo Mesa Signed Date: 08/05/2025 12:09 ET Workstation ID: [id number] Transcribed By: Self Edit Transcribed Date: 08/05/2025 12:08 ET us Cassius Roberts MD IMG XR PROCEDURES Final Res ult * Troponin I high sensitivity (08/05/2025 11:22 AM EDT) Only the most recent of2 resultswithin the time period is included. High Sensitivity Troponin I 8 <=79 ng/L LAB CHEMISTRY METHOD 08/05/2025 12:31 PM EDT [facility] Blood Venous blood specimen / Unknown Venipuncture / Unknown 08/05/2025 11:22 AM EDT 08/05/2025 11:49 AM EDT Narrative [facility] - 08/05/2025 12:31 PM EDT High levels of biotin in samples may falsely decrease hsTroponin values. Use caution when interpreting hsTroponin results in patients taking biotin who exhibit renal impairment (eGFR <60) or in patients taking more than 20 mg/day of biotin. Cassius Roberts MD LAB BLOOD ORDERABLES Final Result Performing Organization Address City/[facility]/ZIP Co de Phone Number [facility] [address] [place] [address], [place] [phone] * [id number], RSV, Influenza A and B qualitative RT-PCR (08/05/2025 10:09 AM EDT) Influenza A PCR Not Detected Not Detected LAB MICROBIOLOGY METHOD 08/05/2025 11:25 AM EDT [facility] Influenza B PCR Not Detected Not Detected LAB MICROBIOLOGY METHOD 08/05/2025 11:25 AM EDT [facility] RSV PCR Not Detected Not Detected LAB MICROBIOLOGY METHOD 08/05/2025 11:25 AM EDT [facility] SARS COV-2 Not Detected Not Detected LAB MICROBIOLOGY METHOD 08/05/2025 11:25 AM EDT [facility] Swab Nasopharyngeal structure / Unknown Non-blood Collection / Unknown 08/05/2025 10:09 AM EDT 08/05/2025 10:20 AM EDT us Baron Hodgson MD LAB MICROBIOLOGY - GENERAL ORDER JE Final Result Performing Organization Address City/[facility]/ZIP Co de Phone Number [facility] [address] [place] [address], [place] [phone] * (ABNORMAL) CBC auto differential (08/05/2025 10:09 AM EDT) [facility] WBC 12.6(H) 4.8 - 10.8 K/mcL LAB HEMETOLOGY METHOD 08/05/2025 10:29 AM [facility] RBC 5.90(H) 4.50 - 5.50 M/mcL LAB HEMETOLOGY METHOD 08/05/2025 10:29 AM [facility] Hemoglobin 14.4 13.5 - 17.5 g/dL LAB HEMETOLOGY METHOD 08/05/2025 10:29 AM [facility] Hematocrit 44.5 42.0 - 54.0 % LAB HEMETOLOGY METHOD 08/05/2025 10:29 AM [facility] MCV 75.3(L) 79.0 - 98.0 FL LAB HEMETOLOGY METHOD 08/05/2025 10:29 AM [facility] MCH 24.4(L) 27.0 - 32.0 pcg LAB HEMETOLOGY METHOD 08/05/2025 10:29 AM [facility] MCHC 32.4 32.0 - 37.0 g/dL LAB HEMETOLOGY METHOD 08/05/2025 10:29 AM [facility] RDW 14.3 11.0 - 15.0 % LAB HEMETOLOGY METHOD 08/05/2025 10:29 AM [facility] Platelets 316 130 - 400 K/mcL LAB HEMETOLOGY METHOD 08/05/2025 10:29 AM [facility] MPV 9.2 7.0 - 11.0 FL LAB HEMETOLOGY METHOD 08/05/2025 10:29 AM [facility] NRBC 0.0 <1.0 % LAB HEMETOLOGY METHOD 08/05/2025 10:29 AM [facility] NRBC Absolute 0.00 <0.10 K/mcL LAB HEMETOLOGY METHOD 08/05/2025 10:29 AM [facility] Neutrophils Relative 72.0 % LAB HEMETOLOGY METHOD 08/05/2025 10:29 AM [facility] Lymphocytes Relative 18.5 % LAB HEMETOLOGY METHOD 08/05/2025 10:29 AM [facility] Monocytes Relative 4.9 % LAB HEMETOLOGY METHOD 08/05/2025 10:29 AM [facility] Eosinophils Relative 2.6 % LAB HEMETOLOGY METHOD 08/05/2025 10:29 AM [facility] Basophils Relative 0.6 % LAB HEMETOLOGY METHOD 08/05/2025 10:29 AM [facility] Immature Granulocytes Relative 1.4 % LAB HEMETOLOGY METHOD 08/05/2025 10:29 AM [facility] Neutrophils Absolute 9.07(H) 1.50 - 7.00 K/mcL LAB HEMETOLOGY METHOD 08/05/2025 10:29 AM [facility] Lymphocytes Absolute 2.33 1.00 - 5.00 K/mcL LAB HEMETOLOGY METHOD 08/05/2025 10:29 AM [facility] Monocytes Absolute 0.62 0.20 - 1.00 K/mcL LAB HEMETOLOGY METHOD 08/05/2025 10:29 AM [facility] Eosinophils Absolute 0.33 0.00 - 0.50 K/mcL LAB HEMETOLOGY METHOD 08/05/2025 10:29 AM [facility] Basophils Absolute 0.08 0.00 - 0.20 K/mcL LAB HEMETOLOGY METHOD 08/05/2025 10:29 AM [facility] Immature Granulocytes Absolute 0.18(H) 0.00 - 0.03 K/mcL LAB HEMETOLOGY METHOD 08/05/2025 10:29 AM EDT [facility] Blood Venous blood specimen / Unknown Venipuncture / Unknown 08/05/2025 10:09 AM EDT 08/05/2025 10:21 AM EDT Cassius Roberts MD LAB BLOOD ORDERABLES Final Result Performing Organization Address City/[facility]/ZIP Co de Phone Number [facility] [address] [place] [address], [place] [phone] * APTT (08/05/2025 10:09 AM EDT) aPTT 33.0 24.1 - 39.3 sec LAB COAGULATION METHOD 08/05/2025 10:40 AM EDT [facility] Blood Venous blood specimen / Unknown Venipuncture / Unknown 08/05/2025 10:09 AM EDT 08/05/2025 10:21 AM EDT us Baron Hodgson MD LAB BLOOD ORDERABLES Final Resul t Performing Organization Address [facility] de Phone Number [facility] [address] [place] [address], [place] [phone] * Protime-INR (08/05/2025 10:09 AM EDT) Protime 11.8 10.6 - 13.9 sec LAB COAGULATION METHOD 08/05/2025 10:40 AM EDT [facility] INR 0.9 LAB COAGULATION METHOD 08/05/2025 10:40 AM EDT [facility] Blood Venous blood specimen / Unknown Venipuncture / Unknown 08/05/2025 10:09 AM EDT 08/05/2025 10:21 AM EDT us Baron Hodgson MD LAB BLOOD ORDERABLES Final Resul t [facility] [address] [place] [address], [place] [phone] * D-Dimer (Quantitative) (08/05/2025 10:09 AM EDT) [facility] D-Dimer, Quant (D-DU) <150 <=230 ng/mL DDU LAB COAGULATION METHOD 08/05/2025 10:42 AM EDT [facility] Blood Venous blood specimen / Unknown Venipuncture / Unknown 08/05/2025 10:09 AM EDT 08/05/2025 10:21 AM EDT Narrative [facility] - 08/05/2025 10:42 AM EDT D-Dimer <230 ng/mL (D-Dimer units) is the threshold for exclusion of DVT/PE. D-Dimer may be elevated in: Critically ill, severely infected, trauma patients, DIC, acute CVA, acute CT, unstable angina, AF, old age, , and smoking. D-Dimer may be decreased with: Initiation of heparin therapy and oral anticoagulants. Baron Hodgson MD LAB BLOOD ORDERABLES Final Resul t Performing Organization Address City/[facility]/ZIP Co de Phone Number [facility] [address] [place] [address], [place] [phone] * B-type natriuretic peptide (08/05/2025 10:09 AM EDT) [facility] BNP 14 <=100 pcg/mL LAB CHEMISTRY METHOD 08/05/2025 10:59 AM EDT [facility] Blood Venous blood specimen / Unknown Venipuncture / Unknown 08/05/2025 10:09 AM EDT 08/05/2025 10:21 AM EDT Cassius Roberts MD LAB BLOOD ORDERABLES Final Result [facility] [address] [place] [address], * Magnesium (08/05/2025 10:09 AM EDT) Pathologist [facility] Magnesium 2.0 1.9 - 2.6 mg/dL LAB CHEMISTRY METHOD 08/05/2025 10:51 AM EDT [facility] Blood Venous blood specimen / Unknown Venipuncture / Unknown 08/05/2025 10:09 AM EDT 08/05/2025 10:21 AM EDT Cassius Roberts MD LAB BLOOD ORDERABLES Final Result Performing Organization Address City/[facility]/ZIP Co de Phone Number [facility] [address] [place] [address], [place] [phone] * Lipase (08/05/2025 10:09 AM EDT) Pathologist [facility] Lipase 25 13 - 75 unit/L LAB CHEMISTRY METHOD 08/05/2025 10:51 AM EDT [facility] Blood Venous blood specimen / Unknown Venipuncture / Unknown 08/05/2025 10:09 AM EDT 08/05/2025 10:21 AM EDT Cassius Roberts MD LAB BLOOD ORDERABLES Final Result [facility] [address] [place] [address], [place] [phone] * (ABNORMAL) Comprehensive metabolic panel (08/05/2025 10:09 AM EDT) Pathologist [facility] Sodium 140 133 - 145 mmol/L LAB CHEMISTRY METHOD 08/05/2025 10:51 AM EDT [facility] Potassium 3.3(L) 3.5 - 5.5 mmol/L LAB CHEMISTRY METHOD 08/05/2025 10:51 AM EDT [facility] Chloride 105 96 - 110 mmol/L LAB CHEMISTRY METHOD 08/05/2025 10:51 AM [facility] CO2 27 21 - 32 mmol/L LAB CHEMISTRY METHOD 08/05/2025 10:51 AM [facility] Anion Gap 8 3 - 11 LAB CHEMISTRY METHOD 08/05/2025 10:51 AM [facility] Glucose 174(H) 70 - 100 mg/dL LAB CHEMISTRY METHOD 08/05/2025 10:51 AM [facility] BUN 12 5 - 25 mg/dL LAB CHEMISTRY METHOD 08/05/2025 10:51 AM [facility] Creatinine 1.01 0.70 - 1.30 mg/dL LAB CHEMISTRY METHOD 08/05/2025 10:51 AM [facility] eGFR 91 >=60 mL/min/1. 73m2 LAB CHEMISTRY METHOD 08/05/2025 10:51 AM [facility] Comment:Calculation based on the Chronic Kidney Disease Epidemiology Collaboration (CKD-EPI) equation refit without adjustment for race. BUN/Creatinine Ratio 11.9 LAB CHEMISTRY METHOD 08/05/2025 10:51 AM [facility] Calcium 9.3 8.5 - 10.5 mg/dL LAB CHEMISTRY METHOD 08/05/2025 10:51 AM [facility] AST (SGOT) 37 10 - 42 unit/L LAB CHEMISTRY METHOD 08/05/2025 10:51 AM [facility] ALT (SGPT) 54 10 - 60 unit/L LAB CHEMISTRY METHOD 08/05/2025 10:51 AM [facility] Alkaline Phosphatase 92 42 - 121 unit/L LAB CHEMISTRY METHOD 08/05/2025 10:51 AM [facility] Total Protein 7.8 6.0 - 8.0 g/dL LAB CHEMISTRY METHOD 08/05/2025 10:51 AM [facility] Albumin 3.7 3.2 - 5.0 g/dL LAB CHEMISTRY METHOD 08/05/2025 10:51 AM EDT [facility] Total Bilirubin 0.4 0.0 - 1.4 mg/dL LAB CHEMISTRY METHOD 08/05/2025 10:51 AM EDT [facility] Blood Venous blood specimen / Unknown Venipuncture / Unknown 08/05/2025 10:09 AM EDT 08/05/2025 10:21 AM EDT us Cassius Roberts MD LAB BLOOD ORDERABLES Final Result [facility] [address] [place] [address], from Last 3 Months Insurance MEDICAID - [place] [employer] MEDICARE [facility] MEDICARE Care Teams Eye Technician Relationship Specialty Start Date End Date Verna Sharpe MD [address] [place] [id number] PCP - General Family Medicine 12/02/24
--- OUTSIDE RECORDS SUMMARY | 2025-10-17 17:09 | XMS_ITS | Encounter Summary ---
Author Organization [employer] Address [address] [place] [address] Care Team Providers Care Disc Ruler Operator Name Role Phone Verna Sharpe MD Primary Care Provider [phone] Encounter Details Date Type Department Care Team (Late st Contact Info) Description 12/29/2024 Orders Only [facility] [address] [place] [address] Johnna Mclean MD [address] [place] [address] SUSAN positive (Primary Dx) Social History Tobacco [...] [facility] [address] [place] [address] Verna Sharpe MD [address] [place] [address] 11/21/2025 9:30 AM EST Telemedicine [facility] [address] [place] [address] Lucille Rutledge, TOSIN [address] [place] [address] Scheduled Orders Name Type Priority Associated Diagnoses Orde r Schedule Hepatic Function Panel Lab Routine SUSAN positive Expected: 12/29/2024 (Approximate), Expires: 12/29/2025 documented as of this encounter Visit Diagnoses Diagnosis SUSAN positive- Primary documented in this encounter Additional Health Concerns Assessment Noted Time PHQ-9 Depression Total Score: 7 10/07/20 24 1:49 PM EST documented as of this encounter Care Teams Disc Ruler Operator Relationship Specialty Start Date End Date Verna Sharpe MD [address] [place] [address] PCP - General Family Medicine 11/05/21 documented as of this encounter
--- OUTSIDE RECORDS SUMMARY | 2025-10-17 17:09 | XMS_ITS | Encounter Summary ---
Author Organization [employer] Address [address] [place] [address] Care Team Providers Care Pega Developer Name Role Phone Verna Sharpe MD Primary Care Provider [phone] Reason for Visit * Reason Onset Date Comments Med Refill 08/29/2025 Encounter Details Date Type Department Care Team ([facility] st Contact Info) Description 08/29/2025 Refill [facility] [address] [place] [address] Josefina Tse MD [address] [place] [address] Social History Tobacco Use Types Packs/Day Years [...] Description 11/03/2025 1:30 PM EST Office Visit [facility] [address] [place] [address] Verna Sharpe MD [address] [place] [address] 11/21/2025 9:30 AM EST Telemedicine [facility] [address] [place] [address] Lucille Rutledge, RN [address] [place] [address] documented as of this encounter Visit Diagnoses Not on filedocumented in this encounter Additional Health Concerns Assessment Noted Time PHQ-9 Depression Total Score: 7 10/07/20 24 1:49 PM EST documented as of this encounter Care Teams Pega Developer Relationship Specialty Start Date End Date Verna Sharpe MD [address] [place] [address] PCP - General Family Medicine 11/05/21 documented as of this encounter
--- OUTSIDE RECORDS SUMMARY | 2025-10-17 17:10 | XMS_ITS | Data Portability ---
Author Organization [employer], [facility] Address [address] [place] [id number] Care Team Providers Care Solar Thermal Technician Name Role Phone [facility] Primary Care Provider [phone] Assessment Encounter Date Assessment Date Assessment LastModified by Organization Details LastModified Time 11/28/2023 11/28/2023 48 yo M with 1 day of viral URI sxs, including nasal congestion, non-productiv e cough, and sore throat. Able to eat and drink. Daughter has strep throat. No F/C, abd pain, N/V. VS wnl. Rapid COVID/flu/str ep tests all negative. Sent rx for flonase to use BID for post-nasal drip and throat lozenges. Pt can do salt water gargles PRN sore throat. [email or web address] Not available 11/28/2023 12:59:35 Plan of Treatment Reminders Order Date Submit Date Provider Last Modified By Organization Details Last Modified Time Details Appointments None recorded. Lab None recorded. Referral None recorded. Procedures None recorded. Surgeries None recorded. Imaging None recorded. Medication Orders Cepacol Sore Throat (benzocain e-menthol) 15 mg-3.6 mg lozenges 2023 024 [id number], [address], [place], [id number], 4 13:00:28 Flonase Allergy Relief 50 mcg/actuat ion nasal spray,susp ension 2023 024 [facility] #[id number], [address], [place], [id number], 4 12:36:00 Patient TargetsNo targets recorded. Patient InstructionsNo instructions recorded. Reason for Referral None Reported. Medical Equipment None Reported. Medications Name Sig Start Date Stop Date Status Note LastModified by Organization Details LastModified Time Refresh Tears 0.5 % eye drops INSTILL 1 DROP INTO BOTH EYES TWICE DAILY active Not Available Not Available Not Available loperamide 2 mg capsule TAKE 1 CAPSULE BY MOUTH NEEDED IN THE MORNING AT NOON AND AT BEDTIME FOR DIARRHEA FOR UP TO 10 DAYS active Not Available Not Available No t Available cetirizine 10 mg tablet TAKE 1 TABLET BY MOUTH EVERY MORNING active Not Available Not Available No t Available enalapril maleate 20 mg tablet TAKE 1 TABLET BY MOUTH EVERY DAY active Not Available Not Available No t Available chlorthalido ne 25 mg tablet TAKE 1 TABLET BY MOUTH EVERY DAY active Not Available Not Available No t Available peg-electrol yte solution 420 gram oral solution PLEASE FOLLOW INSTRUCTION S FROM GI. NOT THE INSTRUCTION S IN THE PACKAGE active Not Available Not Available No t Available tramadol 50 mg tablet active Not Available Not Available No t Available triamcinolon e acetonide 0.1 % topical cream APPLY TOPICALLY TO THE AFFECTED AREA IN THE MORNING AND AT BEDTIME NEEDED FOR PAIN OR SWELLING active Not Available Not Available No t Available oxycodone-ac etaminophen 5 mg-325 mg tablet TAKE 1 TABLET BY MOUTH EVERY 6 HOURS FOR UP TO 5 DAYS NEEDED FOR SEVERE PAIN active Not Available Not Available Not Available gabapentin 800 mg tablet active Not Available Not Available Not Available dicyclomine 20 mg tablet active Not Available Not Available Not Available betamethason e valerate 0.1 % topical cream APPLY TOPICALLY TO THE AFFECTED AREA IN THE MORNING AND AT BEDTIME NEEDED FOR DRYNESS active Not Available Not Available Not Available pantoprazole 40 mg tablet,delay ed release active Not Available Not Available N ot Available lansoprazole 30 mg capsule,anjali yed release TAKE 1 CAPSULE BY MOUTH TWICE DAILY active Not Available Not Available No t Available diclofenac potassium 50 mg tablet active Not Available Not Available No t Available hydroxyzine HCl 25 mg tablet TAKE 1 TABLET BY MOUTH THREE TIMES DAILY NEEDED active Not Available Not Available No t Available fluticasone propionate 50 mcg/actuatio n nasal spray,suspen irma [place] 1 spray twice a day by intranasal route. active Not Available Not Available No t Available Ventolin HFA 90 mcg/actuatio n aerosol inhaler INHALE 2 PUFFS BY MOUTH EVERY 6 HOURS IF NEEDED FOR WHEEZING active Not Available Not Available No t Available tizanidine 4 mg capsule TAKE ONE CAPSULE BY MOUTH THREE TIMES DAILY active Not Available Not Available Not Available Cepacol Sore Throat (benzocaine- menthol) 15 mg-3.6 mg lozenges Take 1 lozenge q4 hours PRN sore throat 2023 active Not Available Not Available Not Avai lable GaviLyte-G 236 gram-22.74 gram-6.74 gram-5.86 gram oral solution MIX AND DRINK DIRECTED active Not Available Not Available No t Available Breo Ellipta 100 mcg-25 mcg/dose powder for inhalation INHALE 1 PUU BY MOUTH DAILY EVERY MORNING active Not Available Not Available No t Available baclofen 5 mg tablet active Not Available Not Available No t Available Vitals Date Recorded Oxygen saturation Heart rate Body weight Body temperature Respiratory rate Systolic And Diastolic Provider Name and Address Organization Details Last Updated DateTime 98 % 64 /min 238055. 864 g 97.6 [degF] 18 /min 150/104 mm[Hg] Not Available [facility] - production 12:34:23 Social History None recorded. Functional Status None recorded. Mental Status None recorded. Family History Nothing Reported. Medical History No medical history recorded. Past Encounters Encounter ID Performer Location Encounter Start Date Encounter Closed Date Diagnosis/Indication Diagnosis SNOMED-CT Code Diagnosis ICD10 Code Diagnosis IMO Codes Diagnosis Note [id number] MARIPOSA MENON MD [facility] [address] [place] [phone] 11/28/2023 12:34:19 11/30/2023 13:04:22 Viral upper respiratory tract infection 585207080 J06.9 Sore throat 866664287 J0 2.9 Health Concerns Section Related Observation LastModified by Organization Detai ls LastModified Time None Recorded Concern Status LastModified by Organization Details LastModified Time None Recorded Advance Directives Directive None Recorded Payers Insurance Date Sequence Insurance Name Policy Number Policy Boss Covered Member ID Boss Member ID Guarantor Name 03/31/2025 1 [id number] - DOS ON OR AFTER 2023 - DUAL ELIGIBLE - [facility] OPTIONS AND ONE CARE (MEDICARE REPLACEMENT/ADV ANTAGE - HMO) Randall Shahid [id number] Randall Shahid Notes Date Note Type Note Provider Name and Address Organization Details Recorded Time 11/28/2023 text/html HPI: Triaged for complaints of sore throat starting yesterday. No shortness of breath or fever.Child with diagnosed STREP. ................. ................. ................. ................. ................. ................. ................. ................. ..... [facility] Nurse Triage Notes (Natali Benitez): Comments: 48 year old male with PMH: COPD, HTN Reporting sore throat, Denies SOB/fever, exposed to child w/ strep throat. Hpatterson RN ................. ................. ................. ................. ................. ................. ................. ................. ..... De Icer Element Winder Note From Jensen Watkins: Pt co sore throat cough and congestion since yesterday. has same symptoms. Pt denies fever sob cp nausea vomiting or diarrhea. Baseline vitals assessed lungs clear , Covid flu and strep swab negative. [facility] contacted and advised pt. To monitor symptoms and self care. RX for nasal spray and lozenges called in. Pt education on signs indicating the ER. ................. ................. ................. ................. ................. ................. ................. ................. ..... Disposition: Fulfilled MARIPOSA MENON MD [address] [facility],[address], [place], [phone], GLORIA MILES 11/28/2023 13:00:31
--- OUTSIDE RECORDS SUMMARY | 2025-10-17 17:10 | XMS_ITS | Encounter Summary ---
Author Organization [employer] Address [address] [facility] [address] [place] [address] Care Team Providers Care Corrective Therapy Aide Name Role Phone Verna Sharpe MD Primary Care Provider [phone] Encounter Details Date Type Department Care Team ([facility] Contact Info) Description 05/15/2023 Orders Only [facility]EDS [address], [place] [phone] Johnna Mclean MD [address] [place] [address] Positive SUSAN (antinuclear antibody) (Primary Dx); Polyarthralgia [...] 1:30 PM EST Office Visit [facility]ED[facility] [address] [place] [address] Verna Sharpe MD [address] [place] [address] 11/21/2025 9:30 AM EST Telemedicine [facility] [address] [place] [address] Lucille Rutledge, TOSIN [address] [place] [address] documented as of this encounter Visit Diagnoses Diagnosis Positive SUSAN (antinuclear antibody)- Primary Other and unspecified nonspecific immunological findings Polyarthralgia Pain in joint, multiple sites documented in this encounter Additional Health Concerns Assessment Noted Time PHQ-9 Depression Total Score: 9 10/31/19 23 1:38 PM EST documented as of this encounter Care Teams Corrective Therapy Aide Relationship Specialty Start Date End Date Venra Sharpe MD [address] [place] [phone] PCP - General Family Medicine 11/05/21 documented as of this encounter
--- OUTSIDE RECORDS SUMMARY | 2025-10-17 17:10 | XMS_ITS | Encounter Summary ---
Author Organization [employer] Address [address] [facility] [place] [address] Care Team Providers Care Stone Carriage Operator Name Role Phone Verna Sharpe MD Primary Care Provider [phone] Reason for Visit * Reason Comments Med Refill Encounter Details Date Type Department Care Team ([facility] Contact Info) Description 12/30/2023 Refill [facility] MED & PEDS [address], [place] [phone] Verna Sharpe MD [address] [place] [address] Neuropathy Social History Tobacco Use Types Packs/Day [...] Description 11/03/2025 1:30 PM EST Office Visit [facility] MED & PEDS [address] [place] [address] Verna Sharpe MD [address] [place] [address] 11/21/2025 9:30 AM EST Telemedicine [facility] [address] [place] [address] Lucille Rutledge, TOSIN [address] [place] [address] documented as of this encounter Visit Diagnoses Diagnosis Neuropathy Mononeuritis of unspecified site documented in this encounter Additional Health Concerns Assessment Noted Time PHQ-9 Depression Total Score: 11 024 1:55 PM EST documented as of this encounter Care Teams Stone Carriage Operator Relationship Specialty Start Date End Date Verna Sharpe MD [address] [place] [address] PCP - General Family Medicine 11/05/21 documented as of this encounter
--- OUTSIDE RECORDS SUMMARY | 2025-10-17 17:10 | XMS_ITS | Encounter Summary ---
Author Organization [employer] Address [address] [facility] [address] [place] [address] Care Team Providers Care Relief Mate Name Role Phone Verna Sharpe MD Primary Care Provider [phone] Reason for Visit * Reason Onset Date Comments Medication Question 01/08/2024 Encounter Details Date Type Department Care Team ([facility] Contact Info) Description 01/08/2024 Telephone [facility] [address] [place] [address] Verna Sharpe MD [address] [place] [address] Medication Question Social History Tobacco Use Types [...] Semaglutide-Weight Management (Wegovy) 0.25 MG/0.5ML solution auto-injector editorial writer did inform the patient that the PA was sent back in 12/24 when the patient had MH now due to the change in insurance a new one has to be sentand editorial writer also informed the patient the medication is in back order documented in this encounter Plan of Treatment Upcoming Encounters Date Type Department Care Team (Late st Contact Info) Description 11/03/2025 1:30 PM EST Office Visit [facility] MED & PEDS [address] [place] [address] Verna Sharpe MD [address] [place] [address] 11/21/2025 9:30 AM EST Telemedicine [facility] MED & PEDS [address] [place] [address] Lucille Rutledge RN [address] [place] [address] documented as of this encounter Visit Diagnoses Not on filedocumented in this encounter Additional Health Concerns Assessment Noted Time PHQ-9 Depression Total Score: 11 024 1:55 PM EST documented as of this encounter Care Teams Relief Mate Relationship Specialty Start Date End Date Verna Sharpe MD [address] [place] [address] PCP - General Family Medicine 11/05/21 documented as of this encounter
--- OUTSIDE RECORDS SUMMARY | 2025-10-17 17:10 | XMS_ITS | Clinical Summary ---
Author Organization [employer] Address [address] [place] [address] Care Team Providers Care Geochemistry Teacher Name Role Phone Verna Sharpe MD Primary Care Provider [phone] Allergies Active Allergy Reactions Criticality Noted Date [...] Take 40 mg by mouth at bedtime. Active hydrOXYzine HCl (Atarax) 25 MG tablet Take 25 mg by mouth if needed in the morning, at noon, and at bedtime. 022 Active rosuvastatin (Crestor) 20 MG tablet Take 20 mg by mouth in the morning. 022 Active triamcinolone (Kenalog) 0.1 % creamIndications :Sensitivity [...] both eyes 2 times daily. 023 Active albuterol 108 (90 Base) MCG/ACT [...] DROP INTO BOTH EYES TWICE DAILY NEEDED Active EPINEPHrine (Epipen) 0.3 MG/0.3ML injection syringe Active Breo Ellipta 100-25 MCG/ACT aerosol powder INHALE 1 PUU BY MOUTH DAILY EVERY MORNING 60 each 11 024 Active glucose 4 g chewable tablet Chew 4 tablets (16 g) if needed for low blood sugar. 50 tablet 024 Active ketoconazole (NIZOral) 2 % cream Apply topically Once per day. Active gabapentin (Neurontin) 800 MG tabletIndication s:Neuropathy Take 1 tablet (800 mg) by mouth 2 times daily. 60 tablet 5 025 Active naloxone (Narcan) 4 mg/0.1 mL nasal spray Administer 1 spray (4 mg) into affected nostril(s) if needed for opioid reversal. May repeat every 2-3 minutes if needed, alternating nostrils, until medical assistance becomes available. 2 each 2 025 2025 Active lansoprazole (Prevacid) [address] capsule TAKE 1 CAPSULE BY MOUTH TWICE DAILY 180 capsule 1 Active cyclobenzaprine (Flexeril) 10 MG tabletIndication s:Lumbar radiculopathy TAKE 1 TABLET BY MOUTH THREE TIMES A DAY FOR 10 DAYS 30 tablet 09/03/2 025 Active fluticasone (Flonase Allergy Relief) 50 MCG/ACT nasal spray Administer 1-2 sprays into each nostril 2 times daily. 16 g 11 Active cetirizine (ZyrTEC) 10 MG tablet Take 1 tablet (10 mg) by mouth in the morning. 90 tablet 1 Active ibuprofen 600 MG tablet TAKE 1 TABLET BY MOUTH EVERY 8 HOURS IF NEEDED FOR MILD PAIN. 60 tablet Active baclofen (Lioresal) 20 MG tablet Take 20 mg by mouth 2 times daily. Active Alcohol Swabs (Alcohol Prep) padsIndications: Type 2 diabetes mellitus without complication, without long-term current use of insulin ([facility]) 2 Units 2 times daily. 200 each Active Lancets miscIndications: Type 2 diabetes mellitus without complication, without long-term current use of insulin ([facility]) 1 Units 2 times daily. 200 each 1 Active glucose blood (Accu-Chek Guide Test) test stripIndications :Type 2 diabetes mellitus without complication, without long-term current use of insulin ([facility]) TEST BLOOD SUGAR TWICE A DAY 100 each 12 025 2025 Active Blood Glucose Monitoring Suppl (Accu-Chek Guide Me) w/Device kitIndications:T ype 2 diabetes mellitus without complication, without long-term current use of insulin ([facility]) 1 Units 2 times daily. TEST BLOOD SUGAR TWICE A DAY 1 kit Active Accu-Chek FastClix Lancets miscIndications: Type 2 diabetes mellitus without complication, without long-term current use of insulin ([facility]) 1 Units 2 times daily. TEST BLOOD SUGAR TWICE A DAY 100 each Active traZODone (Desyrel) 50 MG tablet TAKE 1 TABLET BY MOUTH AT BEDTIME 90 tablet 1 Active hydroCHLOROthiaz david (HYDRODiuril) 25 MG tablet Take 1 tablet (25 mg) by mouth Once per day. 90 tablet 1 5 1:50 PM EST Active simethicone (Mylicon) 125 MG chewable tabletIndication s:Constipation, unspecified constipation type Chew 1 tablet (125 mg) every 6 (six) hours if needed for flatulence. 30 tablet 5 1:50 PM EST 025 Active polyethylene glycol, PEG, 3350 (MiraLax) 17 GM/SCOOP powderIndication s:Constipation, unspecified constipation type Take 17 g by mouth Once per day. 527 g 2 5 1:50 PM EST 025 Active senna-docusate sodium (Senokot-S) 8.6-50 MG tabletIndication s:Constipation, unspecified constipation type Take 1 tablet by mouth Once per day. 90 tablet 1 5 1:50 PM EST 025 Active metFORMIN (Glucophage) 500 MG tablet Take 2 tablets (1,000 mg) by mouth with breakfast and with evening meal. 180 tablet 2 025 Active traMADol (Ultram) 50 MG tabletIndication s:Cervical radiculopathy TAKE 1 TABLET(50 MG) BY MOUTH EVERY 12 HOURS NEEDED FOR SEVERE PAIN 56 tablet 025 Active Tirzepatide 2.5 MG/0.5ML solution auto-injectorInd ications:Type 2 diabetes mellitus without complication, without long-term current use of insulin (HCC) Inject 2.5 mg combined under the skin 1 (one) time per week. 2 mL 1 5 11:12 AM EST 025 Active enalapril (Vasotec) 20 MG tablet Take 1 tablet (20 mg) by mouth Once per day. 90 tablet 1 025 Active polyethylene glycol-electroly cindy (Nulytely) 420 g solution MIX AND DRINK DIRECTED 023 2024 Discontinued traZODone (Desyrel) 50 MG tablet TAKE 1 TABLET BY MOUTH AT BEDTIME 90 tablet 1 025 2024 Discontinued baclofen (Lioresal) 10 MG tabletIndication s:Lumbar radiculopathy Take 1 tablet (10 mg) by mouth 3 times daily. 90 tablet 025 2024 Discontinued enalapril (Vasotec) 20 MG tabletIndication s:Hypertension, unspecified type Take 1 tablet (20 mg) by mouth Once per day. 90 tablet 1 2024 Discontinued(S david effects) Tirzepatide-Weig ht Management (Zepbound) 2.5 MG/0.5ML solution auto-injectorInd ications:Type 2 diabetes mellitus without complication, without long-term current use of insulin ([facility]),Class 3 severe obesity due to excess calories with serious comorbidity and body mass index (BMI) of 45.0 to 49.9 in adult (HCC),Obstructiv e sleep apnea syndrome Inject 0.5 mL (2.5 mg) under the skin 1 (one) time per week. 2 mL 1 2024 Discontinued(T herapy completed) chlorthalidone (Hygroton) 25 MG tabletIndication s:Primary hypertension Take 1 tablet (25 mg) by mouth Once per day. 90 tablet 1 2024 Discontinued(S david effects) traMADol (Ultram) 50 MG tabletIndication s:Cervical radiculopathy Take 1 tablet (50 mg) by mouth every 12 (twelve) hours if needed for severe pain. 56 tablet 2024 Discontinued amoxicillin (Amoxil) 500 MG capsuleIndicatio ns:Strep pharyngitis Take 1 capsule (500 mg) by mouth every 12 (twelve) hours for 10 days. 20 capsule 2024 oseltamivir (Tamiflu) 75 MG capsuleIndicatio ns:Influenza A Infection Take 1 capsule (75 mg) by mouth 2 times daily for 5 days. 10 capsule 2024 olmesartan (Benicar) 20 MG tablet Take 1 tablet (20 mg) by mouth Once per day. 90 tablet 1 2024 Discontinued(T herapy completed) metFORMIN (Glucophage) 500 MG tablet Take 1 tablet (500 mg) by mouth with breakfast and with evening meal. 60 tablet 1 2024 Discontinued metFORMIN (Glucophage) 500 MG tablet TAKE 1 TABLET(500 MG) BY MOUTH WITH BREAKFAST AND WITH THE EVENING MEAL 180 tablet 2024 Discontinued(R eorder (will not trigger notification to Pharmacy)) Blood Glucose Monitoring Suppl (FreeStyle Lite) w/Device kit 1 Units 2 times daily. 1 kit 025 2024 Discontinued FREESTYLE LITE test stripIndications :Type 2 diabetes mellitus without complication, without long-term current use of insulin (HCC) Use to monitor glucose BID prn capillary 60 each 5 2024 Discontinued amLODIPine-olmes cj (Ruthann) 10-40 MG tablet Take 1 tablet by mouth Once per day. 90 tablet 1 12:01 PM EST 2024 Discontinued(T herapy completed) enalapril (Vasotec) 20 MG tablet Take 1 tablet (20 mg) by mouth Once per day. 90 tablet 1 025 2024 Discontinued(R eorder (will not trigger [...] AM EST): Reports went he went to [place] didn't tolerate bread or rice well, reports this does not happen with other meals. Persistent he wants to see diesel engine fitter. 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 Previous labs with SUSAN positive findings. Following with dermatology. SUSAN positive 06/26/2023 Obstructive sleep apnea syndrome 03/10/2023 Assessment & Plan (10/06/2025 11:49 AM EST): Images from the original note were not included. Reviewed indications for pharmacotherapy with patient for [...] baseline JOSÉ MIGUEL severity Assessment & Plan (05/19/2025 11:29 AM EDT): [...] asthma without complication History of substance abuse ([facility]) 03/10/2023 Butyrylcholinesterase deficiency 03/10/2023 Cervical radiculopathy 03/10/2023 [...] recommended reduction of 20-30% of maintenance calories; principal security architect referral offered, declined. Recommended to decrease soda [...] Center 04/05/2024 11:30 AM Verna Sharpe MD [facility] Assessment & Plan (12/23/2023 5:03 PM EST): I prescribed him Wegovy to help with weigh management. I discussed the benefits as well as side affects. Will followup in 3 months, will need to titrate med until maintenance dose. . Discussed calorie deficit, recommended reduction of 20-30% of maintenance calories; principal security architect referral offered. Recommended to decrease soda and sugary beverage consumption. Recommended at least 20 g per meal of protein to assist with satiety. Recommended at least 150 min/week of moderate intensity exercise. Assessment & Plan (10/31/2022 6:00 PM EST): Declined referral to bariatric surgery. Will start on metformin, prediabetic Discussed calorie deficit, recommended reduction of 20-30% of maintenance calories; principal security architect referral offered. Recommended to decrease soda and [...] months Primary hypertension 10/31/2022 Assessment & Plan (09/21/2025 11:28 AM EST): Patient had medication changed 1 day and 1/2 ago, usually it takes time for medication to remain stable in the blood stream, recommended to cont current dose for additional 2 days, if BP > 140/90 mmHg, than increase dose of olmesartan to 40 mg qdaily and to inform us of the increase in my chart. Denies med side effects. Assessment & Plan (11/08/2024 3:27 PM EST): [...] Problem Noted Date Diagnosed Date Resolved Date Prediabetes 09/19/2025 09/19/2025 Functional diarrhea 12/11/2022 12/17/19 Assessment & Plan [...] Encounters Date Type Department Care Team Description 10/14/2025 10:00 AM EST Office Visit [facility] [address] [place] [address] Verna Sharpe MD Type 2 diabetes mellitus without complication, without long-term current use of insulin (HCC) (Primary Dx) 10/14/2025 Travel 10/11/2025 Refill [facility] [address] [place] [address] Verna Sharpe MD Cervical radiculopathy 10/06/2025 11:15 AM EST Office Visit [facility] [address] [place] [address] Verna Sharpe MD Class 3 severe obesity due to excess calories with serious comorbidity and body mass index (BMI) of 45.0 to 49.9 in adult (HCC) (Primary Dx); Type 2 diabetes mellitus without complication, without long-term current use of insulin (HCC); Primary hypertension; Constipation, unspecified constipation type; Bloating; Intolerance, food; Obstructive sleep apnea syndrome 10/06/2025 Travel 10/04/2025 Telephone [facility] [address] [place] [address] Verna Sharpe MD chart prep 09/28/2025 Refill [facility] [address] [place] [address] Verna Sharpe MD 09/21/2025 10:00 AM EST Office Visit [facility] [address] [place] [address] Verna Sharpe MD Primary hypertension (Primary Dx) 09/21/2025 Travel 09/21/2025 Telephone [facility] [address] [place] [phone] Tanya Copeland, TOSIN 09/20/2025 Refill [facility] [address] [place] [address] Verna Sharpe MD Type 2 diabetes mellitus without complication, without long-term current use of insulin ([facility]) 09/19/2025 3:45 PM EST Office Visit [facility] [address] [place] [address] Verna Sharpe MD Prediabetes (Primary Dx); Type 2 diabetes mellitus without complication, without long-term current use of insulin ([facility]) 09/19/2025 Refill [facility] [address] [place] [address] Verna Sharpe MD 09/19/2025 Travel 09/15/2025 10:00 AM EST Office Visit [facility] [address] [place] [phone] Fabio Brown MD Influenza A (Primary Dx); Strep pharyngitis 09/15/2025 Travel 09/14/2025 9:00 AM EST Clinical Support [facility] [address] [place] [address] Lucille Rutledge, geography faculty member right shoulder pain (Primary Dx) 09/14/2025 Travel 09/14/2025 Telephone [facility] [address] [place] [address] Lucille Rutledge, TOSIN 09/12/2025 Telephone [facility] [address] [place] [address] Verna Sharpe MD Nurse Triage 08/29/2025 Refill [facility] [address] [place] [address] Johnna Mclean MD Cervical radiculopathy 08/29/2025 Refill [facility] [address] [place] [address] Verna Sharpe MD Primary hypertension 08/29/2025 Refill [facility] [address] [place] [address] Josefina Tse MD 08/08/2025 Orders Only [facility] [address] [place] [address] Juan Manuel Siddiqi MD 08/05/2025 Orders Only [facility] [address] [place] [address] Juan Manuel Siddiqi MD 07/27/2025 Refill [facility] [address] [place] [address] Verna Sharpe MD Cervical radiculopathy 07/27/2025 Refill [facility] [address] [place] [address] Verna Sharpe MD 07/27/2025 Refill [facility] [address] [place] [address] Verna Sharpe MD Cervical radiculopathy from Last 3 Months Immunizations Immunization Administration [...] Mass Index 47.68 10/14/2025 10:18 AM EST Plan of Treatment Upcoming Encounters Date Type Department Care Team (Late st Contact Info) Description 11/03/2025 1:30 PM EST Office Visit [facility] [address] [place] [address] Verna Sharpe MD [address] [place] [address] 11/21/2025 9:30 AM EST Telemedicine [facility] [address] [place] [address] Lucille Rutledge RN [address] [place] [address] Health Maintenance Due Date Last Done Comments CT Colonography 1975 FIT DNA/Cologuard 1975 FIT 1975 FOBT 1975 Sigmoidoscopy 1975 Family Planning (PISQ) 1990 Hepatitis B Vaccines (1 of 3 - 19+ 3-dose series) 1994 Pneumococcal Vaccine: 50+ Years (1 of 2 - PCV) 1994 Diabetes: Urine Protein Screening 10/10/2023 10/10/2022 Dental Oral Exam 05/24/2025 11/23/2024 Dental Prophylaxis 05/24/2025 11/23/2024 COVID-19 Vaccine ( - season) 2025 Lipid Panel 07/02/2025 07/02/2024, 09/26, 11/20/2021 RSV Patients and Patients Aged 60 years or older (1 - Risk 50-74 years 1-dose series) 2025 Zoster Vaccines (1 of 2) 2025 Depression Screening 10/07/2025 10/07/2024, 10/07/20 Diabetes: Foot Exam 11/08/2025 11/08/2024 Dental X-Ray: Bitewings 11/24/2025 11/23/2024 Diabetes: Hemoglobin A1C 12/20/2025 025, 04/22/2025, 11/08/2024, Additional history exists SDOH Screening 04/15/2026 04/15/2025 Influenza Vaccine (#1) 2026 , 08/12/2019, 08/12/2019 Postponed from 06/27/2025 (Patient Refused) Alcohol/Substance Use Screening 05/12/2026 05/12/2025 Disability Screening 05/12/2026 05/12/2025 Colonoscopy 07/28/2026 07/28/2023 Colorectal Cancer Screening 07/28/2026 Tobacco Screening 10/14/2026 10/14/2025 Eye Exam 05/27/2027 05/27/2025, 08/0 10/2024, 05/27/2025, Additional history exists Dental X-Ray: Full Mouth 11/24/2027 11/23/2024 DTaP/Tdap/Td Vaccines (2 - Td or Tdap) 12/04/2031 12/04/2021 HIV Screening Completed 11/20/2021, 10/05/2019 Hepatitis C [...] on patient's age to complete this topic Goals Goal Patient Goal Type Associated Problems [...] Weekly blood pressure task No Salma Vizcaino MA Weekly blood pressure task Care Plan Weekly blood pressure task No Salma Vizcaino [place] Patient has chronic kidney disease Care Plan Patient has chronic kidney disease No Salma Vizcaino [place] Patient has chronic kidney disease Care Plan Patient has chronic kidney disease No Salma Vizcaino [place] Weekly blood pressure task Care Plan [...] Weekly blood pressure task No Nehal Hernandez, RESTAURANT MANAGER Weekly blood pressure task Care Plan Weekly blood pressure task No HernandezHaiga, RESTAURANT MANAGER Patient has chronic kidney disease Care Plan Patient has chronic kidney disease No HernandezHaiga, RESTAURANT MANAGER Patient has chronic kidney disease Care Plan Patient has chronic kidney disease No Hai Hernandezga, RESTAURANT MANAGER Weekly blood pressure task Care Plan Weekly [...] blood pressure task No Ofelia Nelson, RN Patient has chronic [...] Weekly blood pressure task No Keyanna Bob [place] Weekly blood pressure task Care Plan Weekly blood pressure task No Ailyn Bobha FL Patient has chronic kidney disease Care Plan Patient has chronic kidney disease No Ailyn Bobha [place] Patient has chronic kidney disease Care Plan Patient has chronic kidney disease No Keyanna Bob [place] Weekly blood pressure task Care Plan Weekly [...] chronic kidney disease No Verna Sharpe MD Procedures Procedure Name Priority Date/Time Associated Diagnosis Comments POCT GLUCOSE (CPT-02846) Routine 10/14/2025 10:47 AM EST Type 2 diabetes mellitus without complication, without long-term current use of insulin (HCC) POCT GLUCOSE (CPT-57571) Routine 10/06/2025 11:57 AM EST Type 2 diabetes mellitus without complication, without long-term current use of insulin (HCC) POCT GLYCATED HEMOGLOBIN, TOTAL Routine 09/19/2025 4:19 PM EST Prediabetes POCT GLUCOSE (CPT-61686) Routine 09/19/2025 4:18 PM EST Prediabetes POCT RAPID COVID ANTIGEN Routine 09/15/2025 10:19 AM EST Influenza A POC CAIN ID NOW STREP A Routine 09/15/2025 10:19 AM EST Strep pharyngitis POCT INFLUENZA B (ID NOW RAPID MOLECULAR) Routine 09/15/2025 10:19 AM EST Influenza A POCT INFLUENZA A (ID NOW RAPID MOLECULAR) Routine 09/15/2025 10:19 AM EST Influenza A POCT LALI-14 URINE DRUG SCREEN Routine 09/14/2025 10:17 AM EST Chronic right shoulder pain XR CHEST 2 VIEWS Routine 08/05/2025 3:25 PM EDT ECG 12-LEAD Routine 08/05/2025 8:44 AM EDT ECG 12-LEAD Routine 08/05/2025 8:42 AM EDT ECG 12-LEAD Routine 08/05/2025 8:38 AM EDT PROPHYLAXIS - ADULT Routine 11/23/2024 8 :00 AM EST INTRAORAL - COMPLETE SERIES OF RADIOGRAPHIC IMAGES Routine 11/23/2024 8:00 AM EST PERIODIC ORAL EVALUATION - ESTABLISHED PATIENT Routine 11/23/2024 8:00 AM EST LIPID PANEL, STANDARD Routine 07/02/2024 9:09 AM EDT Class 3 severe obesity due to excess calories with serious comorbidity and body mass index (BMI) of 45.0 to 49.9 in adult (CMS/HCC) HM COLONOSCOPY Routine 07/28/2023 ALBUMIN, RANDOM URINE W/CREATININE Routine 10/10/2022 8:57 AM EST ZZZ HISTORICAL HEPATITIS C AB W/REFL TO HCV RNA, QN, PCR Routine 11/20/2021 8:52 AM EST HIV 1/2 ANTIGEN/ANTIBODY, FOURTH GENERATION W/RFL Routine 11/20/2021 8:52 AM EST from Last 3 Months or Most Recently Relevant to Health Maintenance Results * POCT Glucose (10/14/2025 10:47 AM EST) Only the most recent of3 resultswithin the time period is included. Pathologist [facility] Glucose Blood, POC 138 60 - 200 mg/dL QC Media Lot # [id number] Lot# Expiration Date [id number] Blood Capillary blood specimen / Unknown 10/14/2025 10:47 AM EST Verna Sharpe MD POINT OF CARE TEST ENTER/EDIT ORDERABLES Final Result * (ABNORMAL) POCT Hgb A1c (09/19/2025 4:19 PM EST) Pathologist [facility] Hemoglobin A1C 7.6(A) 4.0 - 5.7 % QC Media Lot # [id number] Lot# Expiration Date [id number] Blood 09/19/2025 4:19 PM EST Verna Sharpe MD POINT OF CARE TEST ENTER/EDIT ORDERABLES Final Result * Influenza B (ID NOW Rapid Molecular) (09/15/2025 10:19 AM EST) Influenza B Negative Negative, Indeterminate [facility] Swab 09/15/2025 10:1 9 AM EST Fabio Brown MD POINT OF CARE TEST ENTER/EDIT OR DERABLES Edited Result - Final [facility] [address] [place] [phone] * (ABNORMAL) Influenza A (ID NOW Rapid Molecular) (09/15/2025 10:19 AM EST) Pathologist [facility] Influenza A Positive( A) Negative, Indeterminate [facility] Swab 09/15/2025 10:1 9 AM EST us Fabio Brown MD POINT OF CARE TEST ENTER/EDIT OR DERABLES Edited Result - Final [facility] [address] [place] [phone] * (ABNORMAL) POCT ID NOW Rapid Strep A manually resulted (09/15/2025 10:19 AM EST) [facility] Rapid Strep A Screen Positive( A) Negative, None Detected Swab 09/15/2025 10:1 9 AM EST us Fabio Brown MD POINT OF CARE TEST ENTER/EDIT OR DERABLES Final Result * POCT Rapid COVID Ag (09/15/2025 10:19 AM EST) [facility] Rapid COVID Ag Negative Swab 09/15/2025 10:1 9 AM EST us Fabio Brown MD POINT OF CARE TEST ENTER/EDIT OR DERABLES Final Result * POCT LALI-14 Urine Drug Screen (09/14/2025 10:17 AM EST) [facility] THC Negative Negative Cocaine Screen, Urine Negative [...] obtained by clean catch procedure / Unknown 09/14/2025 10:17 AM EST Narrative Lucille Rutledge RN - 09/14/2025 10:17 AM EST . Internal Pass Control Lot# [id number] Exp: 08-02-26 Verna Sharpe MD POINT OF CARE TEST ENTER/EDIT ORDERABLES Final Result * XR Chest 2 Views (08/05/2025 3:25 PM EDT) Anatomical Region Laterality Modality Chest Radiographic Mehreen ging Historical Provider IMG XR PROCEDURES Final R esult * ECG 12 lead (08/05/2025 8:44 AM EDT) Only the most recent of3 resultswithin the time period is included. Historical Provider ECG ORDERABLES Final Res ult * (ABNORMAL) Lipid Panel, Standard (07/02/2024 9:09 AM EDT) Triglycerides 160(H) <150 mg/dL [facility] Comment:Desirable Triglyceri de: less than 150 mg/dLBorderline High Triglyceride 150-199 mg/dLHigh Triglyceride: 200-499 mg/dLVery High Triglyceride: greater than or equal to 5OO mg/dL Cholesterol 187 <200 mg/dL [facility] Comment:Desirable Cholestero l: less than 200 mg/dLBorderline High Cholesterol: 200-239 mg/dLHigh Cholesterol: greater than 239 mg/dL LDL Cholesterol Calculated 112(H) <100 mg/dL [facility] Comment:Desirable LDL: less than 100 mg/dLNear Optimal/Above Optimal LDL: 110- 129 mg/dLBorderline High LDL: 130-159 mg/dLHigh LDL: 160-189 mg/dLVery High LDL: greater than or equal to 190 mg/dL HDL Cholesterol 43 >40 mg/dL [facility] Comment:Desirable HDL: great er than 40 mg/dL Note: This HDL assay may give artificially low results in patients with liver disease. Blood Venous blood specimen / Unknown 07/02/2024 9:09 AM EDT 07/02/2024 2:03 PM EDT Verna Sharpe MD LAB BLOOD ORDERABLES Final Re sult [facility] [address] [place] [phone] [phone] * (ABNORMAL) Colonoscopy (07/28/2023) Pathologist [facility] Colonoscopy Abnormal(A ) Normal Verna Mathias MD - 07/28/2023 Colonoscopy in [facility], pathology with tubular adenoma and hyperplastic polyp, TA size > 6 mm rpt in 3 yrs Historical Provider HEALTH MAINTENANCE Final Result * Albumin, Random Urine W/Creatinine (10/10/2022 8:57 AM EST) [facility] Creatinine, Random Urine 147 20 - 320 mg/dL [facility] Albumin, Urine 3.5 See Note: mg/dL [facility] Comment: Reference Range: Reference Range Not established Albumin/Creatinin e Ratio, Random Urine 24 <30 mcg/mg creat [facility] Comment: The ADA defines abnormalities in albumin [...] URINE ORDERABLES Final Re sult [facility] [address] [place] [address] [facility] [address] [facility], ([address]) [place] [address] * HEPATITIS C AB W/REFL TO HCV RNA, QN, PCR (11/20/2021 8:52 AM EST) HEPATITIS C ANTIBODY NON-REACT PAULETTE NON-REACT PAULETTE [facility] INDEX 0.05 <1.00 [facility] Comment: HCV antibody was non-reactive. There is no laboratory evidence of HCV infection. In most cases, no further action is required. However, if recent HCV exposure is suspected, a test for HCV RNA (test code 17283) is suggested. For additional information please refer to [email or web address] (This link is being provided for informational/ educational purposes only.) 11/20/2021 8:52 AM EST Verna Sharpe MD HISTORICAL/NON ORDERABLE LABS Final Result Performing Organization Address [facility] Phone Number [facility] [place] [address], * HIV 1/2 ANTIGEN/ANTIBODY,FOURTH GENERATION W/RFL (11/20/2021 8:52 AM EST) HIV-1/2 ANTIGEN AND ANTIBODIES, 4TH GENERATION W/ REFLEX NON-REACT PAULETTE NON-REACT PAULETTE [facility] Comment: HIV-1 antigen and HIV-1/HIV-2 [...] purpose. For additional information please refer to http://Viveve.MiniBanda.ru/faq/MUJ704 (This link is being provided for informational/ educational purposes only.) The performance of this assay has not been clinically validated in patients less than 2 years old. 11/20/2021 8:52 AM EST Verna Sharpe MD LAB BLOOD ORDERABLES Final Re sult Performing Organization Address [facility] Co de Phone Number [facility] [address] [place] [address], [place] from Last 3 Months or Most Recently Relevant to Health Maintenance Additional Health Concerns Active Problems Noted Date [...] 10/14/2025 Patient has chronic kidney disease 10/14/2025 Insurance [facility] MEDICARE ADVANTAGE [facility] Care Teams Geochemistry Teacher Relationship Specialty Start Date End Date Verna Sharpe MD [address] [place] [id number] PCP - General Family Medicine 11/05/21
== END 2025-10-17 13:44 | disposition home or self-care (01) ==
LOC: HO.MRI 13:43
PROVIDERS: PCP Family Medicine; Visit Provider Anesthesiology
DX: M51.360 Other intervertebral disc degeneration, lumbar region with discogenic back pain only (principal); M47.26 Other spondylosis with radiculopathy, lumbar region; M96.1 Postlaminectomy syndrome, not elsewhere classified
CPT/HCPCS: 72158; A9585